=== PATIENT | male | born 1930 | race African-American/Black ===

== ENCOUNTER 2016-11-01 09:54 | Inpatient (IN) ==
[2016-11-01] MEDS ORDERED: SODIUM CHLORIDE 0.9% 1,000 ML IV STA (10:24)
[2016-11-01] MEDS ORDERED: PANTOPRAZOLE 40 MG VIAL IV STA (10:24)
[2016-11-01] MEDS ORDERED: ONDANSETRON 4 MG/2 ML VIAL IV STA (10:24)
[2016-11-01] MEDS ORDERED: METOCLOPRAMIDE 10 MG/2 ML VIAL IV STA (10:24)
--- NOTE | 2016-11-01 10:29 | Emergency Department Note ---
Arrival - Arrival Chief Complaint: GI Bleed/Rectal Stated Complaint: rectum bleeding ED Nursing Triage Note: Pt c/o bright red blood in stool with abd pain started this am. Mode of Arrival: Ambulatory Limitations: No Limitations Source: Patient Time Seen by Provider: 11/01/16 10:24 - History of Present Illness HPI Narrative: This 85-year-old black male presents with a history of 2 bowel movements earlier this morning in which the total Bowater appeared bright red. The patient described bowel movements as being nonpainful but loose. He likewise describe some mucinous material in the contents. He has a history of long- standing esophageal reflux and does complain of heartburn, belching, and indigestion and is no longer on his reflux medications. He does not describe any abdominal pain in association with this. He does have some low-grade nausea as well as incidental complaints of orthopnea. In this regard he denies chest pain, shortness of breath, or diaphoresis. He denies a history of diverticulosis, peptic ulcer disease, or colitis. Currently he appears in no acute medical distress. Onset (ago): hour(s) (patient presents 3 hours post onset of symptoms) Allergies/Adverse Reactions: Allergies Allergy/AdvReac Type Severity Reaction Status Date / Time levofloxacin [From Levaquin] Allergy Severe Swelling Verified 05/16/15 10:52 of Lip/Tongue/Throat pregabalin [From Lyrica] Allergy Severe ANAPHYLAXIS Verified 05/16/15 10:52 peanut Allergy Unknown Swelling Verified 05/16/15 10:52 of Lip/Tongue/Throat losartan [From Cozaar] AdvReac Unknown Unknown/Unable Verified 05/16/15 10:52 to obtain Home Medications: Home Medications Medication Instructions Recorded Confirmed Type Ferrous Sulfate [Ferrous Sulfate 325 mg PO BID 01/30/15 06/28/15 History Cap] Fluticasone 50 Mcg Nasal [place] 2 spray BOTH NARES BEDTIME 01/30/15 06/28/15 History [Flonase] Nifedipine [Nifedipine ER] 90 mg PO DAILY 01/30/15 06/28/15 History Pantoprazole Sodium 40 mg PO DAILY 01/30/15 06/28/15 History Sucralfate 1 gm PO BID 01/30/15 06/28/15 History Atorvastatin [Lipitor] 20 mg PO BEDTIME #30 tablet 05/22/15 06/28/15 Rx Clopidogrel [Plavix] 75 mg PO DAILY #30 tablet 05/22/15 06/28/15 Rx Magnesium Chloride [Slow Mag] 128 mg PO BID #60 tablet 05/22/15 06/28/15 Rx Carvedilol [Coreg] 12.5 mg PO BID 06/28/15 06/28/15 History Olopatadine 0.1% Oph Soln [Patanol 1 drop BOTH EYES BID 06/28/15 06/28/15 History 0.1% Oph Soln] Simethicone [Phazyme] 180 mg PO DAILY 06/28/15 06/28/15 History Aspirin EC Tab 81 mg PO MOWEFR #30 tablet 07/02/15 Rx traMADol TAB [Ultram] 50 mg PO Q6H #20 tablet 01/10/16 Rx Amoxicillin 500 mg PO QID W/MEALS & HS #40 01/11/16 Rx tablet Cetirizine HCl [ZyrTEC Cap] 10 mg PO DAILY #20 capsule 01/11/16 Rx Famciclovir [Famvir] 500 mg PO TID #30 tablet 01/11/16 Rx HYDROcodone/ACETAMIN 10-325 [Hana 1 tablet PO Q6H #20 tablet 01/11/16 Rx 10-325] HYDROcodone/ACETAMIN 10-325 [Hana 1 tablet PO Q6H #20 tablet 01/11/16 Rx 10-325] Review of System - Review of System 12 point system: reviewed and no additional remarkable complaints except as stated - Review of System Constitutional: Present: as per HPI Respiratory: Present: as per HPI Cardiovascular: Present: as per HPI Gastrointestinal: Present: as per HPI Medical,Surgical,& Family Hx - Medical History Cardio: History of: Cardiac Dysrhythmia (DR BRISENO), CAD, Hypertension, [place] Neurology: History of: Cerebrovascular Accident (AFFECTED SPEECH), TIA No history of: Seizures HEENT: History of: Eye Problem (ALLEERGIES) Respiratory: History of: Respiratory Problems (SOB ABNORMAL CXR, 1997 Lung cl.) Renal: History of: Renal Problems (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) Genitourinary: History of: Prostate Problems (CANCER DANIELLE RADIATION LUPRON), Genitourinary Cancer (prostate cancer) Gastrointestinal: History of: Hemorrhoids, GI Problems (ULCERS) Hematology: History of: Anemia - Surgical History Cardiac Surgeries: Sugical HX of: Cardiac Catheterization Patient Denies: Cardiac Surgery HEENT Surgeries: Surgical HX of: Eye Surgery (CATARACTS) Abdominal Surgeries: Surgical HX of: Colonoscopy, EGD - Family History Family History: Reports;: Family Cancer, Family Diabetes, Family Heart Disease, Family Hypertension, Family Stroke (2 BROTHERS) Denies;: Family Anesthesia Reaction, Family Psychiatric Problems - Social History Smoking Status: Former smoker Exam Physical Examination: GENERAL: Well developed, well nourished elderly black male in no acute distress. HEENT: Normocephalic. No trauma. Moist mucous membranes. EOMI. PERRLA. ENT clear NECK: Supple. No adenopathy. JVD to the angle of jaw at 45 CARDIAC: Regular. No murmurs. CHEST: Clear to auscultation. No respiratory distress. Heart rate 65, O2 sat 97% ABDOMEN: Soft. Midepigastric tenderness. Active bowel sounds. : Small excoriated macerated hemorrhoids with red blood perirectally EXTREMITIES: No trauma. Normal ROM. No pedal edema. SKIN: No diaphoresis. No rash. NEURO: Alert. Neuro intact No focal deficits. Vital Signs: Vital Signs Temperature 97.7 F 11/01/16 11:18 Pulse Rate 69 11/01/16 11:18 Respiratory Rate 18 11/01/16 11:18 Blood Pressure 166/77 11/01/16 11:18 O2 Sat by Pulse Oximetry 97 11/01/16 10:06 Course - Reevaluation(s) Reevaluation #1: Discussed with patient the need for hospitalization both with rectal bleeding and abnormal cardiac enzymes. - Consultations Consultation #1: Discussed with Dr. Massey who will admit for Dr. Dr. Berg for further evaluation and treatment Results - Labs CBC & BMP: 11/01/16 10:49 11/01/16 10:49 Labs: I reviewed the laboratory noted the low hematocrit, low potassium, and bump in troponins - Impressions EKG: Sinus rhythm with normal MS interval and QRS duration. Left ventricular hypertrophy noted with nonspecific ST changes without strain. No acute injury pattern noted. - Diagnostic Findings Procedure: Abdominal x-ray: image reviewed by me, report reviewed by me ( nonspecific colonic gas and feces), Chest x-ray: image reviewed by me, report reviewed by me (uncoiling of the aorta with left upper lobe scarring otherwise no acute disease) Disposition Clinical Impression: rectal bleed, abnormal cardiac enzymes Case discussed with: patient Disposition: Still a Patient Condition: Stable Time of Disposition: 13:07
[2016-11-01] MEDS ORDERED: PANTOPRAZOLE 40 MG VIAL IV ONE (10:51)
[2016-11-01] MEDS ORDERED: METOCLOPRAMIDE 10 MG/2 ML VIAL ONE (10:52)
[2016-11-01] MEDS ORDERED: ONDANSETRON 4 MG/2 ML VIAL ONE (10:52)
[2016-11-01 10:58] LABS: Basophils % 0.4 % (0.0-0.8); Eosinophils # 0.2 10*3/uL (0.0-0.87); Eosinophils % 3.3 % (0.00-10.9); Hematocrit 36.1 VOL% (42.0-52.0); Hemoglobin 11.5 GM/DL (14.0-18.0); Immature Granulocytes % 0.2 %; Immature Granulocytes Absolute 0.01 #; Lymphocytes # 1.6 10*3/uL (1.4-4.0); Lymphocytes % 33.8 % (21.2-54.2); Mean Corpuscular HGB Conc 31.9 GM/DL (32-36); Mean Corpuscular Hemoglobin 26 PG (27-34); Mean Platelet Volume 11.4 FL (9.6-12.0); Monocytes # 0.5 10*3/uL (0.11-0.8); Monocytes % 9.8 % (1.7-12.7); Neutrophils # 2.4 10*3/uL (1.4-7.4); Neutrophils % 52.5 % (38.7-73.9); Platelet Count 125 T/CUMM (130-400); Red Blood Count 4.35 MC/CUMM (3.8-5.5); Red Cell Distribution Width 16.4 % (9.3-17.3); White Blood Count 4.6 T/CUMM (4-12)
[2016-11-01 11:09] LABS: INR 1.1; PT Patient Result 11.7 SECS; Partial Thromboplastin Time 28.7 SECS (0-40)
--- NOTE | 2016-11-01 11:23 | EKG Report ---
Stationary ECG Study [facility] ER Test Date: 11/01/2016 11:19:43 AM Pat Name: ANJLEICA REYEZ Department: Room: Gender: M Cost Control Specialist: : 1930 Requested by: Jourdan Ireland Order Number: [id number] Reading MD: DINA ABEBE Intervals [place] Rate: 72 P: 29 OR: 176 QRS: -58 QRSD: 107 T: -53 QT: 395 QTc: 420 Interpretive Statements SINUS RHYTHM LEFT ANTERIOR FASCICULAR BLOCK MODERATE VOLTAGE CRITERIA FOR LVH ST DEVIATION AND MODERATE T-WAVE ABNORMALITY, CONSIDER ANTEROLATERAL ISCHEMIA Electronically Signed On 11-02-16 07:04:10 HANDBAG PARTS CUTTER by DINA ABEBE [email or web address]
[2016-11-01 11:37] LABS: Alanine Aminotransferase 17 U/L (16-61); Albumin 3.3 G/DL (3.4-5.0); Alkaline Phosphatase 90 U/L (45-117); Aspartate Amino Transferase 18 U/L (0-37); Bilirubin,Total < 0.39 MG/DL (0.2-1.0); Blood Urea Nitrogen 17 MG/DL (7-18); Calcium 8.9 MG/DL (8.5-10.1); Glucose 97 MG/DL (74-106)
[2016-11-01 11:38] LABS: Amylase 151 U/L (25-115); Potassium 3.4 MMOL/L (3.5-5.1); Sodium 143 MMOL/L (136-145)
[2016-11-01 11:39] LABS: Troponin I Only 0.126 NG/ML (0.00-0.045)
[2016-11-01] MEDS ORDERED: POTASSIUM BICARB EFFERVESCENT 25 MEQ TABLET PO ONE (12:58)
[2016-11-01] MEDS ORDERED: HYDROmorphone 2 MG/1 ML VIAL IV PRN (13:08)
[2016-11-01] MEDS ORDERED: ONDANSETRON 4 MG/2 ML VIAL IV PRN (13:08)
--- NOTE | 2016-11-01 13:25 | XRay Report ---
Referring Physician: Jourdan Michelle Exam: XR chest 1V portable Date: November 01, 2016 at 12:26 PM Reason: Shortness of breath Comparison: Chest 2 views July 13, 2015, CT chest August 13, 2015 Findings: There is cardiac silhouette is again mildly enlarged, and the thoracic aorta is tortuous with scattered calcified plaque. There are persistent mild opacities within the upper lung zones, left greater than right. This is similar to the previous CT and likely represents scarring/fibrosis. No pneumothorax or pleural effusion is identified. No acute osseous process is seen. Impression: 1. Mild cardiomegaly. 2. There is again scarring/fibrosis at the upper lung zones, mainly on the left. No acute pulmonary process is identified. PROCEDURE INTERPRETED AT [facility] DEPARTMENT OF RADIOLOGY Final Report Signed by: Dr. Rachele Alexis
--- NOTE | 2016-11-01 13:28 | XRay Report ---
Referring Physician: Jourdan Michelle Exam: XR KUB Date: November 01, 2016 at 12:28 PM Reason: Generalized abdominal pain Comparison: Abdomen 2 views June 28, 2015 Findings: There is scattered air within the colon and small bowel, which could reflect mild ileus. There is no evidence of high-grade bowel obstruction. The renal shadows are largely obscured. No free air is identified. There is degenerative change at the spine, but no acute osseous process is seen. Scattered arterial calcification is present. Impression: There is mild air within the colon and small bowel, which could reflect mild ileus. There is no evidence of high-grade bowel obstruction. PROCEDURE INTERPRETED AT [facility] DEPARTMENT OF RADIOLOGY Final Report Signed by: Dr. Rachele Alexis
[2016-11-01] MEDS ORDERED: METOCLOPRAMIDE 10 MG/2 ML VIAL IV SCH (13:30)
--- NOTE | 2016-11-01 14:32 | EKG Report ---
Stationary ECG Study [facility] Test Date: 11/01/2016 2:29:38 PM Pat Name: ANJELICA REYEZ Department: Room: 294 Gender: M Cone Winder: : 1930 Requested by: Jourdan Ireland Order Number: [id number] Reading MD: DINA ABEBE Intervals [place] Rate: 66 P: 36 ID: [id number] QRS: -48 QRSD: 105 T: -16 QT: 417 QTc: 431 Interpretive Statements SINUS RHYTHM INCOMPLETE RIGHT BUNDLE BRANCH BLOCK LEFT ANTERIOR FASCICULAR BLOCK VOLTAGE CRITERIA FOR LVH ST DEVIATION AND MODERATE T-WAVE ABNORMALITY, CONSIDER ANTEROLATERAL ISCHEMIA Electronically Signed On 11-02-16 07:08:16 IMAGING ADMINISTRATOR by DINA ABEBE [email or web address]
[2016-11-01] MEDS ORDERED: hydrALAZINE 20 MG/1 ML VIAL IV PRN (14:58)
[2016-11-01] MEDS: SODIUM CHLORIDE 0.9% 1,000 ML IV SCH (15:28)
[2016-11-01 16:22] LABS: Troponin I Only 0.149 NG/ML (0.00-0.045)
[2016-11-01] MEDS ORDERED: MEGESTROL 40 MG TABLET PO PRN (18:16)
--- NOTE | 2016-11-01 18:33 | Internal Med History&Physical ---
Assessment and Plan (1) Rectal bleed Status: Acute Assessment and plan: 85-year-old male admitted to acute care * Rectal bleeding. Patient has history of previous rectal bleeding. He is on Eliquis and Plavix. Will hold his anticoagulation. Will check his H&H and consult GI to see the patient. Probably diverticular bleeding. His hematocrit is fairly stable. He has history of previous GI bleeding * Coronary artery disease. Stable. He is asymptomatic but his troponin was slightly elevated. Will follow it in the morning. EKG shows nonspecific changes * History of CVA. Will hold his anticoagulation * History of anemia. Patient has been on ferrous sulfate. * Hyperlipidemia. Continue atorvastatin Current Visit: Yes (2) History of stroke Status: Acute Current Visit: Yes (3) Coronary artery disease Status: Acute Current Visit: Yes (4) Chronic anticoagulation Status: Acute Current Visit: No (5) Essential hypertension Status: Acute Current Visit: No History of Present Illness Chief complaint: Rectal bleeding History of present illness: Mr. Ash is a 85 year old male with history of coronary artery disease, hypertension, anemia, CVA and previous GI bleeding. He had a diarrhea-like stool this morning which had some old blood in it. And then he had another rectal bleeding which was bright red. He denies any abdominal pain. He denies any nausea vomiting or diarrhea other than the episode this morning. He denies any chest pain or shortness of breath. Patient is on Eliquis for a previous stroke and is also on Plavix. He had 2 stents [place] [address] garcia. He lives at home with his . He is a former smoker. He does not smoke or drink alcohol now. He is quite healthy for his age and is able to do his ADLs without any problems. In the emergency room his hematocrit was mildly low. Her troponin was checked by the ER physician and it was mildly elevated. Patient is asymptomatic. Home Medications Medication Instructions Recorded Confirmed Type Ferrous Sulfate [Ferrous Sulfate 325 mg PO BID 01/30/15 11/01/16 History Cap] Nifedipine [Nifedipine ER] 90 mg PO DAILY 01/30/15 11/01/16 History Clopidogrel [Plavix] 75 mg PO DAILY #30 tablet 05/22/15 11/01/16 Rx Magnesium Chloride [Slow Mag] 128 mg PO BID #60 tablet 05/22/15 11/01/16 Rx Apixaban [Eliquis] 2.5 mg PO BID 11/01/16 11/01/16 History Atorvastatin Calcium 40 mg PO BEDTIME 11/01/16 11/01/16 History Carvedilol 6.25 mg PO BID 11/01/16 11/01/16 History Cholecalciferol [Vitamin D3] 1,000 unit PO DAILY 11/01/16 11/01/16 History Folic Acid Tab 1 mg PO DAILY 11/01/16 11/01/16 History Hydrochlorothiazide [Microzide] 12.5 mg PO DAILY 11/01/16 11/01/16 History Megestrol Acetate 20 mg PO BID PRN 11/01/16 11/01/16 History Olopatadine HCl [Pataday 0.2% Oph 1 drop BOTH EYES DAILY 11/01/16 11/01/16 History Soln] Potassium Chloride 20 meq PO DAILY 11/01/16 11/01/16 History Allergies Allergy/AdvReac Type Severity Reaction Status Date / Time levofloxacin [From Levaquin] Allergy Severe Swelling Verified 05/16/15 10:52 of Lip/Tongue/Throat pregabalin [From Lyrica] Allergy Severe ANAPHYLAXIS Verified 05/16/15 10:52 peanut Allergy Unknown Swelling Verified 05/16/15 10:52 of Lip/Tongue/Throat losartan [From Cozaar] AdvReac Unknown Unknown/Unable Verified 05/16/15 10:52 to obtain Medical,Surgical,& Family Hx - Medical History Cardio: History of: Cardiac Dysrhythmia (DR BRISENO), CAD, Hypertension, [place] Neurology: History of: Cerebrovascular Accident (AFFECTED SPEECH), TIA No history of: Seizures HEENT: History of: Eye Problem (ALLEERGIES) Respiratory: History of: Respiratory Problems (SOB ABNORMAL CXR, 1997 Lung cl.) Renal: History of: Renal Problems (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) Genitourinary: History of: Prostate Problems (CANCER DANIELLE RADIATION LUPRON), Genitourinary Cancer (prostate cancer) Gastrointestinal: History of: Hemorrhoids, GI Problems (ULCERS) Hematology: History of: Anemia - Surgical History Cardiac Surgeries: Sugical HX of: Cardiac Catheterization Patient Denies: Cardiac Surgery HEENT Surgeries: Surgical HX of: Eye Surgery (CATARACTS) Abdominal Surgeries: Surgical HX of: Colonoscopy, EGD - Family History Family History: Reports;: Family Cancer, Family Diabetes, Family Heart Disease, Family Hypertension, Family Stroke (2 BROTHERS) Denies;: Family Anesthesia Reaction, Family Psychiatric Problems - Social History Smoking Status: Former smoker Frequency of Alcohol Use: None Marital Status: Lives With:: Spouse Functional capacity: independent ambulation 12 point system: reviewed and no additional remarkable complaints except as stated (Mentioned in HPI) Exam - Constitutional Exam: Examination: GENERAL: NAD. HEENT: PERRLA. EOMI. Mucous membranes are moist. NECK: Neck is supple. No JVD. No carotid bruit. No thyromegaly. CVS: Regular rate and rhythm. S1 and S2 are normal. Apical S4 RESPIRATORY: Lungs are clear. No rales or rhonchi. ABDOMEN: Soft and nontender. Bowel sounds are present. No hepatosplenomegaly. EXT: No edema. Peripheral pulses are present. YARD DEMURRAGE CLERK: Nonfocal SKIN: Warm and dry. MSK: No obvious deformity. Results - Labs CBC & BMP: 11/01/16 10:49 11/01/16 10:49 Lab Results: I have reviewed the past 24 hour labs
[2016-11-01 21:01] LABS: Hematocrit 33.8 VOL% (42.0-52.0); Hemoglobin 10.9 GM/DL (14.0-18.0)
[2016-11-01] MEDS: NITROGLYCERIN 2% OINT 1 INCH/GM PACK TOP SCH (21:41)
[2016-11-01] MEDS: ATORVASTATIN 80 MG TABLET PO SCH (21:41)
[2016-11-01] MEDS: FERROUS SULFATE 325 MG TABLET PO SCH (21:42)
[2016-11-01] MEDS: CARVEDILOL 6.25 MG TABLET PO SCH (21:42)
[2016-11-01] MEDS: MAGNESIUM CHLORIDE 64 MG TABLET PO SCH (21:43)
[2016-11-02] MEDS: NITROGLYCERIN 2% OINT 1 INCH/GM PACK TOP SCH ×4 (02:13→21:30)
[2016-11-02] MEDS: SODIUM CHLORIDE 0.9% 1,000 ML IV SCH ×2 (03:05→18:10)
[2016-11-02 06:09] LABS: Basophils % 0.3 % (0.0-0.8); Eosinophils # 0.2 10*3/uL (0.0-0.87); Eosinophils % 4.1 % (0.00-10.9); Hematocrit 32.6 VOL% (42.0-52.0); Hemoglobin 10.7 GM/DL (14.0-18.0); Immature Granulocytes % 0.3 %; Immature Granulocytes Absolute 0.01 #; Lymphocytes # 1.7 10*3/uL (1.4-4.0); Mean Corpuscular HGB Conc 32.8 GM/DL (32-36); Mean Corpuscular Hemoglobin 26 PG (27-34); Mean Corpuscular Volume 80.5 FL (87-102); Mean Platelet Volume 10.9 FL (9.6-12.0); Monocytes # 0.5 10*3/uL (0.11-0.8); Monocytes % 11.5 % (1.7-12.7); Neutrophils # 1.6 10*3/uL (1.4-7.4); Neutrophils % 40.8 % (38.7-73.9); Platelet Count 122 T/CUMM (130-400); Red Blood Count 4.05 MC/CUMM (3.8-5.5); Red Cell Distribution Width 16.3 % (9.3-17.3); White Blood Count 3.9 T/CUMM (4-12)
[2016-11-02 06:55] LABS: Calcium 8.4 MG/DL (8.5-10.1); Osmolality,Calculated 289.4 MOS/KG (273-304); Potassium 3.9 MMOL/L (3.5-5.1)
[2016-11-02 07:00] LABS: Troponin I Only 0.144 NG/ML (0.00-0.045)
--- NOTE | 2016-11-02 08:15 | EKG Report ---
Stationary ECG Study [facility] Test Date: 11/02/2016 8:14:06 AM Pat Name: ANJELICA REYEZ Department: Room: 294 Gender: M Trouble Clerk: : 1930 Requested by: Jourdan Ireland Order Number: [id number] Reading MD: DINA ABEBE Intervals [place] Rate: 53 P: 27 FL: 197 QRS: -63 QRSD: 103 T: 267 QT: 457 QTc: 440 Interpretive Statements SINUS BRADYCARDIA LEFT ANTERIOR FASCICULAR BLOCK ST DEVIATION AND MODERATE T-WAVE ABNORMALITY, CONSIDER ANTEROLATERAL ISCHEMIA ST DEVIATION AND MODERATE T-WAVE ABNORMALITY, CONSIDER INFERIOR ISCHEMIA Electronically Signed On 11-02-16 21:59:21 METAL EXTRUSION SUPERVISOR by DINA ABEBE [email or web address]
[2016-11-02] MEDS ORDERED: Olopatadine Hcl [Pataday 0.2% Oph Soln] BOTH EYES SCH (09:00)
[2016-11-02] MEDS ORDERED: PANTOPRAZOLE 40 MG VIAL IV SCH (09:00)
[2016-11-02] MEDS: FERROUS SULFATE 325 MG TABLET PO SCH ×2 (09:59→21:27)
[2016-11-02] MEDS: POTASSIUM CHLORIDE 20 MEQ TABLET PO SCH (09:59)
[2016-11-02] MEDS: hydroCHLOROthiazide 12.5 MG CAPSULE PO SCH (09:59)
[2016-11-02] MEDS: MAGNESIUM CHLORIDE 64 MG TABLET PO SCH ×2 (09:59→21:28)
[2016-11-02] MEDS: FOLIC ACID 1 MG TABLET PO SCH (10:00)
[2016-11-02] MEDS: CARVEDILOL 6.25 MG TABLET PO SCH ×2 (10:00→21:28)
[2016-11-02] MEDS: CHOLECALCIFEROL 1,000 UNIT TABLET PO SCH (10:00)
[2016-11-02] MEDS: PANTOPRAZOLE 40 MG TABLET PO SCH (10:00)
--- NOTE | 2016-11-02 10:10 | Internal Med Progress Note ---
Assessment and Plan (1) Rectal bleed Status: Acute Assessment and plan: 85-year-old male admitted to acute care * Rectal bleeding. Could be related to hemorrhoids. Will start him on a stool softener. GI to see the patient * Coronary artery disease. Stable. Troponin is mildly elevated in the wals[place] zone. Consult cardiology to evaluate especially about the need for anticoagulation in view of GI bleed * History of CVA. Will hold his anticoagulation * History of anemia. Patient has been on ferrous sulfate. * Hyperlipidemia. Continue atorvastatin Current Visit: Yes (2) History of stroke Status: Acute Current Visit: Yes (3) Coronary artery disease Status: Acute Current Visit: Yes (4) Chronic anticoagulation Status: Acute Current Visit: No (5) Essential hypertension Status: Acute Current Visit: No Internal Medicine - PN: Subj Interval history: He is feeling better. He is quite constipated. His stool has been hard. Exam (Progress Note) - Constitutional Vitals: Period Temp Pulse Resp BP Sys/Beck Pulse Ox Last 24 Hr 97.7 F-100.2 F 53-68 16-183 141-194/70-86 90-99 Exam: Examination: GENERAL: NAD. NECK: Neck is supple. CVS: Regular rate and rhythm. Apical S4 RESPIRATORY: Lungs are clear. ABDOMEN: Soft and nontender. EXT: No edema. Peripheral pulses are present. CERTIFIED MEDICAL TECHNICIAN: Nonfocal SKIN: Warm and dry. Results - Labs CBC & BMP: 11/02/16 05:59 11/02/16 05:59 Lab Results: I have reviewed the past 24 hour labs
[2016-11-02] MEDS: POLYETHYLENE GLYCOL POWDER 17 GM PACK PO SCH (14:36)
--- NOTE | 2016-11-02 14:43 | Gastrointestinal Consult Note ---
Assessment and Plan (1) Lower GI bleed Status: Acute Assessment and plan: 85-year-old male admitted with 2 episodes of painless lower GI bleeding. He appears stable today. Transfusion has not been required as yet. Differential includes diverticular bleed and internal hemorrhoids. He has had fairly recent colonoscopy over 3 years ago with good bowel prep then. At his age, would observe for now and not plan colonoscopy unless has recurrent bleeding. Continue observation with serial hemoglobins and blood product support if needed. Current Visit: No History of Present Illness Chief complaint: Rectal bleeding onset yesterday morning History of present illness: Mr. Ash is a 85 year old male with history of diverticulosis coli, benign colon polyp, mild radiation proctitis, and internal hemorrhoids noted at colonoscopy in 06/19. He states that he had been doing well of late but yesterday morning passed a small amount of bright red blood in stool and then around 10 minutes later had the urge to defecate again passed what he says was a large amount of bright red blood. His next bowel movement was this morning with some dark red blood noted. He denies abdominal pain or nausea. His weight has been stable of late. He denies taking nonsteroidal products. Hemodynamics have been normal since presentation. Home Medications Medication Instructions Recorded Confirmed Type Ferrous Sulfate [Ferrous Sulfate 325 mg PO BID 01/30/15 11/01/16 History Cap] Nifedipine [Nifedipine ER] 90 mg PO DAILY 01/30/15 11/01/16 History Clopidogrel [Plavix] 75 mg PO DAILY #30 tablet 05/22/15 11/01/16 Rx Magnesium Chloride [Slow Mag] 128 mg PO BID #60 tablet 05/22/15 11/01/16 Rx Apixaban [Eliquis] 2.5 mg PO BID 11/01/16 11/01/16 History Atorvastatin Calcium 40 mg PO BEDTIME 11/01/16 11/01/16 History Carvedilol 6.25 mg PO BID 11/01/16 11/01/16 History Cholecalciferol [Vitamin D3] 1,000 unit PO DAILY 11/01/16 11/01/16 History Folic Acid Tab 1 mg PO DAILY 11/01/16 11/01/16 History Hydrochlorothiazide [Microzide] 12.5 mg PO DAILY 11/01/16 11/01/16 History Megestrol Acetate 20 mg PO BID PRN 11/01/16 11/01/16 History Olopatadine HCl [[place] 0.2% Oph 1 drop BOTH EYES DAILY 11/01/16 11/01/16 History Soln] Potassium Chloride 20 meq PO DAILY 11/01/16 11/01/16 History Allergies Allergy/AdvReac Type Severity Reaction Status Date / Time levofloxacin [From Levaquin] Allergy Severe Swelling Verified 05/16/15 10:52 of Lip/Tongue/Throat pregabalin [From Lyrica] Allergy Severe ANAPHYLAXIS Verified 05/16/15 10:52 peanut Allergy Unknown Swelling Verified 05/16/15 10:52 of Lip/Tongue/Throat losartan [From Cozaar] AdvReac Unknown Unknown/Unable Verified 05/16/15 10:52 to obtain Medical,Surgical,& Family Hx - Medical History Cardio: History of: Cardiac Dysrhythmia (DR BRISENO), CAD, Hypertension, [place] Neurology: History of: Cerebrovascular Accident (AFFECTED SPEECH), TIA No history of: Seizures HEENT: History of: Eye Problem (ALLEERGIES) Respiratory: History of: Respiratory Problems (SOB ABNORMAL CXR, 1998 Lung cl.) Renal: History of: Renal Problems (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) Genitourinary: History of: Prostate Problems (CANCER DANIELLE RADIATION LUPRON), Genitourinary Cancer (prostate cancer) Gastrointestinal: History of: Hemorrhoids, GI Problems (ULCERS) Hematology: History of: Anemia - Surgical History Cardiac Surgeries: Sugical HX of: Cardiac Catheterization Patient Denies: Cardiac Surgery HEENT Surgeries: Surgical HX of: Eye Surgery (CATARACTS) Abdominal Surgeries: Surgical HX of: Colonoscopy, EGD - Family History Family History: Reports;: Family Cancer, Family Diabetes, Family Heart Disease, Family Hypertension, Family Stroke (2 BROTHERS) Denies;: Family Anesthesia Reaction, Family Psychiatric Problems - Social History Smoking Status: Former smoker Frequency of Alcohol Use: None Type of Drug Use: None - Constitutional Constitutional: Absent: chills, fatigue, fever(s), weakness, weight loss - EENT Nose, mouth and throat: Absent: dysphagia, epistaxis - Cardiovascular Cardiovascular: Absent: chest pain with activity, orthopnea, PND - Respiratory Respiratory: Absent: cough, dyspnea, hemoptysis - Gastrointestinal Gastrointestinal: Absent: abdominal pain, bloating, change in bowel habits, dysphagia, hematemesis, melena - Genitourinary Genitourinary: Absent: dysuria, flank pain, hematuria - Neurological Neurological: Absent: abnormal speech, focal weakness Exam - Constitutional Vitals: Period Temp Pulse Resp BP Sys/Beck Pulse Ox Last 24 Hr 97.7 F-100.2 F 53-68 16-183 141-194/70-88 90-99 General appearance: normal weight, no acute distress - Head Head exam: Present: normocephalic, atraumatic - Eye Eye exam: Present: EOMI. Absent: scleral icterus - Respiratory Respiratory exam: Present: clear to auscultation bilaterally. Absent: wheezes - Cardiovascular Cardiovascular exam: Present: regular rate and rhythm. Absent: gallop, rubs - GI/Abdominal GI/Abdominal exam: Present: normal bowel sounds, soft. Absent: distended, organomegaly, tenderness - Extremities Exam Extremities exam: Absent: calf tenderness, edema - Neurological Exam Neurological exam: Present: alert, oriented X3. Absent: motor sensory deficit - Psychiatric Psychiatric exam: Present: normal affect, normal mood - Skin Skin exam: Present: warm, dry Results - Labs CBC & BMP: 11/02/16 05:59 11/02/16 05:59 Lab Results: I have reviewed the past 24 hour labs
[2016-11-02] MEDS: ATORVASTATIN 80 MG TABLET PO SCH (21:28)
[2016-11-03] MEDS: NITROGLYCERIN 2% OINT 1 INCH/GM PACK TOP SCH ×4 (01:21→17:20)
[2016-11-03 05:17] LABS: Basophils % 0.2 % (0.0-0.8); Eosinophils # 0.2 10*3/uL (0.0-0.87); Eosinophils % 3.7 % (0.00-10.9); Hematocrit 34.6 VOL% (42.0-52.0); Hemoglobin 11.2 GM/DL (14.0-18.0); Immature Granulocytes % 0.2 %; Immature Granulocytes Absolute 0.01 #; Lymphocytes # 1.7 10*3/uL (1.4-4.0); Lymphocytes % 36.5 % (21.2-54.2); Mean Corpuscular HGB Conc 32.4 GM/DL (32-36); Mean Corpuscular Hemoglobin 26 PG (27-34); Mean Corpuscular Volume 80.3 FL (87-102); Mean Platelet Volume 11.3 FL (9.6-12.0); Monocytes # 0.5 10*3/uL (0.11-0.8); Monocytes % 10.1 % (1.7-12.7); Neutrophils # 2.2 10*3/uL (1.4-7.4); Neutrophils % 49.3 % (38.7-73.9); Platelet Count 121 T/CUMM (130-400); Red Blood Count 4.31 MC/CUMM (3.8-5.5); Red Cell Distribution Width 16.3 % (9.3-17.3); White Blood Count 4.6 T/CUMM (4-12)
[2016-11-03 05:52] LABS: Calcium 8.5 MG/DL (8.5-10.1); Osmolality,Calculated 287.6 MOS/KG (273-304); Potassium 3.8 MMOL/L (3.5-5.1)
--- NOTE | 2016-11-03 08:24 | Cardiology Consult Note ---
Assessment and Plan - Time spent with patient Time spent with patient: Greater than 30 minutes (1) Coronary artery disease Status: Chronic Assessment and plan: SEE PLAN OF CARE LISTED BELOW Current Visit: Yes (2) History of stroke Status: Chronic Assessment and plan: SEE PLAN OF CARE LISTED BELOW Current Visit: Yes (3) Rectal bleed Status: Acute Assessment and plan: SEE PLAN OF CARE LISTED BELOW Current Visit: Yes (4) Acute blood loss anemia Status: Chronic Assessment and plan: SEE PLAN OF CARE LISTED BELOW Current Visit: No (5) Atrial fibrillation Status: Chronic Assessment and plan: SEE PLAN OF CARE LISTED BELOW Current Visit: No Qualifiers: Atrial fibrillation type: paroxysmal Qualified Code(s): I48.0 - Paroxysmal atrial fibrillation (6) Chronic anticoagulation Status: Acute Current Visit: No (7) Elevated troponin Status: Acute Assessment and plan: SEE PLAN OF CARE LISTED BELOW Current Visit: No (8) Essential hypertension Status: Chronic Assessment and plan: SEE PLAN OF CARE LISTED BELOW Current Visit: No (9) High risk medication use Status: Chronic Assessment and plan: SEE PLAN OF CARE LISTED BELOW Current Visit: No History of Present Illness - Data of Consult Patient: known to practice within the last 3 years Consult date: 11/03/16 Requesting Physician: Louis Massey - Consult Narrative Reason for consult: anemia, using Plavix and Eliquis History of present illness: Mr. Ash is a 85 year old male routinely followed by Dr. Arthur. 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 Also has a history of paroxysmal atrial fibrillation, peptic ulcer disease, GI bleed, diverticulosis. Obstructive sleep apnea, prostate cancer. He takes low-dose Eliquis for stroke prevention. NSTEMI May 2015 requiring stenting of a critical mid LAD lesion and angioplasty of the right PDA lesion with drug-eluting stent. In June 2015 he experienced GI bleeding with severe anemia. After June 2015 he was off L Oquist for several weeks but then low-dose Eliquis (2.5 mg twice a day) was re- incorporated and he seemed to be tolerating without problems. He was taken off of aspirin as his Plavix was continued. He presented to the emergency department [facility]. November 01, 2016 with diarrhea like stools with "old blood" in it. Shortly thereafter, he had another rectal bleeding episode which was bright red. He had a bowel movement yesterday that had dark red blood. At this point, given his age, and gastroenterology is observing for nail and not planning on repeating colonoscopy unless he has recurrent bleeding. His hemoglobin and hematocrit seem to be stable at this point. He denies chest pain, heaviness or tightness. He denies shortness of breath, lightheadedness or dizziness. Troponins are flat at 0.126 - 0.149. Upon review of his hospitalizations as far back as April 2015, it is noted that his troponin is chronically elevated and are in fact the lowest today than they have ever been. ASSESSMENT/PLAN: 1. RECTAL BLEED - gastroenterology is working up in treating. 2. ANEMIA - seems to be stable at this point. It is safe to stop his Plavix as his drug-eluting stent was implanted over 18 months ago. 3. KNOWN CAD - no complaints of angina. Troponin is elevated but appears to be chronically elevated. Given his active GI bleed, no invasive work-up recommended. 4. ATRIAL FIBRILLATION - at this time, he is in normal sinus rhythm. His L Oquist has been held since admission 5. HYPERTENSION - adequately controlled on beta blockade and calcium channel chivo 6. DYSLIPIDEMIA - continue lipid-lowering agent 7. HISTORY OF CVA - 2 prior CVAs. Uncertain about timing of diagnosis of his atrial fibrillation. In his advanced age, he had been taking Eliquis 2.5 mg twice a rather than 5 mg twice a day. 8. CHRONIC ANTICOAGULATION - currently on hold. CC: Carie Berg, DO - Home Medications and Allergies Home Medications: Home Medications Medication Instructions Recorded Confirmed Type Ferrous Sulfate [Ferrous Sulfate 325 mg PO BID 01/30/15 11/01/16 History Cap] Nifedipine [Nifedipine ER] 90 mg PO DAILY 01/30/15 11/02/16 History Clopidogrel [Plavix] 75 mg PO DAILY #30 tablet 05/22/15 11/01/16 Rx Magnesium Chloride [Slow Mag] 128 mg PO BID #60 tablet 05/22/15 11/01/16 Rx Apixaban [Eliquis] 2.5 mg PO BID 11/01/16 11/01/16 History Atorvastatin Calcium 40 mg PO BEDTIME 11/01/16 11/01/16 History Carvedilol 6.25 mg PO BID 11/01/16 11/01/16 History Cholecalciferol [Vitamin D3] 1,000 unit PO DAILY 11/01/16 11/01/16 History Folic Acid Tab 1 mg PO DAILY 11/01/16 11/01/16 History Hydrochlorothiazide [Microzide] 12.5 mg PO DAILY 11/01/16 11/01/16 History Megestrol Acetate 20 mg PO BID PRN 11/01/16 11/01/16 History Olopatadine HCl [Pataday 0.2% Oph 1 drop BOTH EYES DAILY 11/01/16 11/01/16 History Soln] Potassium Chloride 20 meq PO DAILY 11/01/16 11/01/16 History Allergies/Adverse Reactions: Allergies Allergy/AdvReac Type Severity Reaction Status Date / Time levofloxacin [From Levaquin] Allergy Severe Swelling Verified 05/16/15 10:52 of Lip/Tongue/Throat pregabalin [From Lyrica] Allergy Severe ANAPHYLAXIS Verified 05/16/15 10:52 peanut Allergy Unknown Swelling Verified 05/16/15 10:52 of Lip/Tongue/Throat losartan [From Cozaar] AdvReac Unknown Unknown/Unable Verified 05/16/15 10:52 to obtain Review of systems: REVIEW OF SYSTEMS: - Constitutional Constitutional: Present: Fatigue. Absent: syncope, anorexia, - EENT Eyes: Absent: blurry vision, loss of vision, diplopia Ears: Absent: decreased hearing, ear pain, ear discharge - Cardiovascular Cardiovascular: Denies chest pain with exertion, dyspnea on exertion, edema, palpitations. Absent: chest pain with deep breath, claudication, - Respiratory Respiratory: Denies RUBIN, cough. Absent: wheezing, hemoptysis, change in phlegm color - Gastrointestinal Gastrointestinal: Present: constipation, melena. Absent: abdominal pain, hematemesis, change in bowel habits, nausea - Genitourinary Genitourinary: Absent: difficulty urinating, dysuria, urinary hesitancy, flank pain - Musculoskeletal Musculoskeletal: Present: back pain Absent: joint swelling, muscle cramps, muscle weakness - Neurological Neurological: Present: normal gait without frequent falls. Absent: dizziness, hemiparesis - Psychiatric Psychiatric: Absent: anxiety, depression, difficulty concentrating - Endocrine Endocrine: Present: fatigue. Absent: cold intolerance, heat intolerance, polyuria, polyphagia, polydipsia - Hematologic/Lymphatic Hematologic/Lymphatic: Present: easy bruising. Absent: easy bleeding, easy bruisability -Integumentary Integumentary: Absent: lesions, rashes, skin breakdown Medical,Surgical,& Family Hx - Medical History Cardio: History of: Cardiac Dysrhythmia (DR BRISENO), CAD, Hypertension, [place] Neurology: History of: Cerebrovascular Accident (AFFECTED SPEECH), TIA No history of: Seizures HEENT: History of: Eye Problem (ALLEERGIES) Respiratory: History of: Respiratory Problems (SOB ABNORMAL CXR, 1997 Lung cl.) Renal: History of: Renal Problems (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) Genitourinary: History of: Prostate Problems (CANCER DANIELLE RADIATION LUPRON), Genitourinary Cancer (prostate cancer) Gastrointestinal: History of: Hemorrhoids, GI Problems (ULCERS) Hematology: History of: Anemia - Surgical History Cardiac Surgeries: Sugical HX of: Cardiac Catheterization Patient Denies: Cardiac Surgery HEENT Surgeries: Surgical HX of: Eye Surgery (CATARACTS) Abdominal Surgeries: Surgical HX of: Colonoscopy, EGD - Family History Family History: Reports;: Family Cancer, Family Diabetes, Family Heart Disease, Family Hypertension, Family Stroke (2 BROTHERS) Denies;: Family Anesthesia Reaction, Family Psychiatric Problems - Social History Smoking Status: Former smoker Frequency of Alcohol Use: None Type of Drug Use: None Physical Examination Vital Signs Temp Pulse Resp BP Pulse Ox 97.7 F 69 18 166/77 97 11/01/16 10:06 11/01/16 10:06 11/01/16 10:06 11/01/16 10:06 11/01/16 10:06 General: Appears well with no apparent distress. Pleasant and cooperative. Appears comfortable. HEENT: PERRL, normocephalic, atraumatic. Mucous membranes moist. No jaundice noted. Conjunctiva moist and clear, sclerae anicteric Neck: No JVD/HJR, no thyromegaly or lymphadenopathy noted. No carotid bruit appreciated Cardiac: Regular rate and rhythm. No murmur rub or gallop. Lungs: Clear to auscultation without accessory muscle use to assist the respiratory pattern. Not requiring oxygen Abdomen: Soft, bowel sounds normoactive. Nontender and nondistended. No abdominal bruit or thrill noted. No masses noted. Musculoskeletal: No fluid collection. Decreased range of motion is noted. Extremities: No clubbing, cyanosis noted. No edema noted. Upper extremity pulses 2+. Lower extremity pulses 2+. Capillary refill less than 3 seconds. Skin: No unusual lesions or rashes. No skin breakdown appreciated. Neuro: Awake, alert and oriented 3. Moves all extremities well without hemiparesis or paralysis. No essential tremor is appreciated. Result/EKG - Labs CBC & BMP: 11/03/16 03:50 11/03/16 03:50 Lab Results: I have reviewed the past 24 hour labs Labs: Laboratory Results - last 24 hr 11/03/16 11/03/16 03:50 03:50 WBC 4.6 RBC 4.31 Hgb 11.2 L Hct 34.6 L MCV 80.3 L MCH 26 L MCHC 32.4 RDW 16.3 Plt Count 121 L MPV 11.3 Neut % (Auto) 49.3 Lymph % (Auto) 36.5 [place] % (Auto) 10.1 Eos % (Auto) 3.7 Baso % (Auto) 0.2 Neut # (Auto) 2.2 Lymph # (Auto) 1.7 [place] # (Auto) 0.5 Eos # (Auto) 0.2 Baso # (Auto) 0.0 Immature Gran % 0.2 Nucleated RBC % 0.0 Immature Gran # 0.01 Nucleated RBCs # 0.00 Sodium 146 H Potassium 3.8 Chloride 109 H Carbon Dioxide 25 Anion Gap 15.8 H BUN 9 Creatinine 1.00 GFR Calculation 89 BUN/Creatinine Ratio 9.00 Glucose 86 Calculated Osmolality 287.6 Calcium 8.5 - Diagnostic Findings Procedure: Chest x-ray: report reviewed by ca - EKG EKG results: interpreted by ca EKG shows: sinus rhythm
[2016-11-03] MEDS: SODIUM CHLORIDE 0.9% 1,000 ML IV SCH ×2 (08:36→21:51)
[2016-11-03] MEDS: CHOLECALCIFEROL 1,000 UNIT TABLET PO SCH (08:55)
[2016-11-03] MEDS: FOLIC ACID 1 MG TABLET PO SCH (08:55)
[2016-11-03] MEDS: MAGNESIUM CHLORIDE 64 MG TABLET PO SCH ×2 (08:56→21:46)
[2016-11-03] MEDS: PANTOPRAZOLE 40 MG TABLET PO SCH (08:56)
[2016-11-03] MEDS: hydroCHLOROthiazide 12.5 MG CAPSULE PO SCH (08:56)
[2016-11-03] MEDS: POLYETHYLENE GLYCOL POWDER 17 GM PACK PO SCH (08:56)
[2016-11-03] MEDS: POTASSIUM CHLORIDE 20 MEQ TABLET PO SCH (08:56)
[2016-11-03] MEDS: FERROUS SULFATE 325 MG TABLET PO SCH ×2 (08:56→21:46)
[2016-11-03] MEDS: CARVEDILOL 6.25 MG TABLET PO SCH ×2 (08:56→21:46)
--- NOTE | 2016-11-03 09:54 | Gastrointestinal Progress Note ---
Assessment and Plan (1) Lower GI bleed Status: Acute Assessment and plan: 11/03-NO further bleeding at present. Hgb stable at 11. Will advance diet and continue to monitor. Plan and addendum to follow by Dr Douglass. Current Visit: No Gastroenterology - PN: Subj Interval history: CC: Rectal bleeding Pt is awake and alert. States he is feeling well at this time. He is tolerating clear liquids at this time. No abd pain, nausea or vomiting. He has had no further bleeding at present time. Hgb is stable at 11. Abdomen is soft, nontender. Will advance diet and see how he tolerates this today. He states he did have a bowel movement that was normal for him on last night. ROS: Denies SOB or chest pain Exam (Progress Note) - Constitutional Vitals: Period Temp Pulse Resp BP Sys/Beck Pulse Ox Last 24 Hr 98 F-98.7 F 58-63 16-18 140-192/73-88 93-96 General appearance: normal weight, no acute distress - Head Head exam: Present: normal inspection, normocephalic - Eye Eye exam: Present: other (lids and conjunctiva unremarkable). Absent: scleral icterus - ENT ENT exam: Present: normal exam, normal oropharynx - Neck Neck exam: Present: normal inspection - Respiratory Respiratory exam: Present: clear to auscultation bilaterally. Absent: rales, rhonchi, wheezes - Cardiovascular Cardiovascular exam: Present: regular rate and rhythm. Absent: diastolic murmur , JVD, systolic murmur - GI/Abdominal GI/Abdominal exam: Present: normal bowel sounds, soft. Absent: ascites, distended, mass, organomegaly, tenderness - Extremities Exam Extremities exam: Present: normal inspection, full ROM - Back Exam Back exam: Present: normal inspection - Neurological Exam Neurological exam: Present: alert, oriented X3 - Psychiatric Psychiatric exam: Present: normal affect, normal mood - Skin Skin exam: Present: normal color, warm, dry Results - Labs CBC & BMP: 11/03/16 03:50 11/03/16 03:50 Lab Results: I have reviewed the past 24 hour labs
--- NOTE | 2016-11-03 19:45 | Internal Med Progress Note ---
Assessment and Plan (1) Rectal bleed Status: Acute Current Visit: Yes (2) History of stroke Status: Chronic Current Visit: Yes (3) Chronic anticoagulation Status: Acute Current Visit: No (4) Essential hypertension Status: Acute Current Visit: No Internal Medicine - PN: Subj Interval history: This is an 85 year old male with history of CAD/[place], HTN, acid reflux, stroke with mild speech aphasia, history of prostate cancer, who presented to ER with acute rectal bleed. He has had a similar bleed before two years ago. The bleed has resolved, and if no bloody stool noted tonight, he can be discharged before lunch tomorrow. He has been on chronic anticoagulation. History of paroxysmal atrial fibrillation, CAD and stroke. Exam (Progress Note) - Constitutional Vitals: Period Temp Pulse Resp BP Sys/Beck Pulse Ox Last 24 Hr 96.7 F-98.7 F 58-63 17-18 114-166/56-90 94-98 General appearance: no acute distress - Respiratory Respiratory exam: Present: clear to auscultation bilaterally - Cardiovascular Cardiovascular exam: Present: regular rate and rhythm - GI/Abdominal GI/Abdominal exam: Present: soft. Absent: tenderness - Extremities Exam Extremities exam: Absent: edema - Neurological Exam Neurological exam: Present: alert, oriented X3 - Psychiatric Psychiatric exam: Present: normal mood - Skin Skin exam: Present: warm, dry Results - Labs CBC & BMP: 11/04/16 03:41 11/04/16 03:41 Specialty Discharge - Follow Up or Referrals Follow up with: Jacques Douglass MD [Physician] - 1 Month Carie Berg DO [Primary Care Provider] - 2 Weeks
[2016-11-03] MEDS: ATORVASTATIN 80 MG TABLET PO SCH (21:46)
[2016-11-04] MEDS: NITROGLYCERIN 2% OINT 1 INCH/GM PACK TOP SCH ×2 (01:46→06:31)
--- NOTE | 2016-11-04 02:23 | Discharge Summary ---
Hospital Course - Hospital Course Hospital Course: This is an 85 year old male with history of CAD/[place], HTN, acid reflux, stroke with mild speech aphasia, who presented to ER with acute rectal bleed. He has had a similar bleed before two years ago. The bleed has resolved, and if no bloody stool noted tonight, he can be discharged before lunch. Diagnosis - Discharge Diagnosis (1) Rectal bleed Status: Acute (2) Coronary artery disease Status: Chronic (3) History of stroke Status: Chronic Discharge Plan - Discharge Data Disposition: Disch To Home/Self Care Condition at Discharge: Stable (.) Discharge Diet: low fat, low cholesterol, other (soft, bland solids and advance slowly) Activity: increase activity as tolerated - Discharge Medications New Pantoprazole Tab [Protonix Tab] 40 mg PO DAILY tablet Aspirin EC Tab 325 mg PO DAILY #30 tablet Polyethylene Glycol Powder [Miralax] 17 gm PO DAILY Continue Nifedipine [Nifedipine ER] 90 mg PO DAILY Ferrous Sulfate [Ferrous Sulfate Cap] 325 mg PO BID Magnesium Chloride [Slow Mag] 128 mg PO BID #60 tablet Atorvastatin Calcium 40 mg PO BEDTIME Carvedilol 6.25 mg PO BID Olopatadine HCl [Pataday 0.2% Oph Soln] 1 drop BOTH EYES DAILY Hydrochlorothiazide [Microzide] 12.5 mg PO DAILY Potassium Chloride 20 meq PO DAILY Megestrol Acetate 20 mg PO BID PRN PRN Reason: HOT FLASHES Cholecalciferol [Vitamin D3] 1,000 unit PO DAILY Folic Acid Tab 1 mg PO DAILY Discontinued Clopidogrel [Plavix] 75 mg PO DAILY #30 tablet Apixaban [Eliquis] 2.5 mg PO BID - Follow Up or Referral Follow Up: Carie Berg DO [Primary Care Provider] - Jacques Douglass MD [Physician] - - Forms/Instructions Additional Discharge Instructions: Follow up with Dr. Cathleen Berg in clinic within the next two weeks. Follow up with Dr. Douglass in clinic within the next month. Exam - Constitutional Vitals: Period Temp Pulse Resp BP Sys/Beck Pulse Ox Last 24 Hr 96.4 F-98.6 F 58-66 16-20 114-153/56-90 94-100 General appearance: no acute distress - Head Head exam: Present: normocephalic - Eye Eye exam: Present: EOMI - Respiratory Respiratory exam: Present: clear to auscultation bilaterally - Cardiovascular Cardiovascular exam: Present: regular rate and rhythm (he is) - GI/Abdominal GI/Abdominal exam: Present: soft. Absent: tenderness - Extremities Exam Extremities exam: Absent: edema - Neurological Exam Neurological exam: Present: alert, oriented X3 - Psychiatric Psychiatric exam: Present: normal mood (he is) - Skin Skin exam: Present: warm, dry Discharge Results Procedures and tests throughout hospitalization: Pending Orders 11/02/16 Occult Blood, Stool Routine Labs on day of discharge: Labs from last 24 hours 11/03/16 11/03/16 03:50 03:50 WBC 4.6 RBC 4.31 Hgb 11.2 L Hct 34.6 L MCV 80.3 L MCH 26 L MCHC 32.4 RDW 16.3 Plt Count 121 L MPV 11.3 Neut % (Auto) 49.3 Lymph % (Auto) 36.5 [place] % (Auto) 10.1 Eos % (Auto) 3.7 Baso % (Auto) 0.2 Neut # (Auto) 2.2 Lymph # (Auto) 1.7 [place] # (Auto) 0.5 Eos # (Auto) 0.2 Baso # (Auto) 0.0 Immature Gran % 0.2 Nucleated RBC % 0.0 Immature Gran # 0.01 Nucleated RBCs # 0.00 Sodium 146 H Potassium 3.8 Chloride 109 H Carbon Dioxide 25 Anion Gap 15.8 H BUN 9 Creatinine 1.00 GFR Calculation 89 BUN/Creatinine Ratio 9.00 Glucose 86 Calculated Osmolality 287.6 Calcium 8.5 DS: Provider Date of admission: 11/01/16 13:07 Primary care physician: Carie Berg DO Attending physician on admission: Carie Berg DO Consults: 11/01/16 13:08 Consult to Physician [CONS] Routine Comment: Consulting Provider: Consult to Specialist Group: Gastroenterology When should Consulting Provider be notified: Now 11/02/16 10:10 Consult to Physician [CONS] Routine Comment: Trivial elevation of troponin, history of CAD Consulting Provider: Cardiology - [facility] Consult to Specialist Group: Cardiology Person Notified: MARYLIN Date Notified: 11/03/16 Time Notified: 08:25 Discharging clinician: Carie Berg DO Expected date of discharge: 11/04/16
[2016-11-04 04:58] LABS: Basophils % 0.2 % (0.0-0.8); Eosinophils # 0.2 10*3/uL (0.0-0.87); Eosinophils % 4.2 % (0.00-10.9); Hematocrit 33.8 VOL% (42.0-52.0); Immature Granulocytes % 0.2 %; Immature Granulocytes Absolute 0.01 #; Lymphocytes # 1.6 10*3/uL (1.4-4.0); Lymphocytes % 35.4 % (21.2-54.2); Mean Corpuscular HGB Conc 32.5 GM/DL (32-36); Mean Corpuscular Hemoglobin 26 PG (27-34); Mean Corpuscular Volume 80.5 FL (87-102); Mean Platelet Volume 11.9 FL (9.6-12.0); Monocytes # 0.5 10*3/uL (0.11-0.8); Monocytes % 9.8 % (1.7-12.7); Neutrophils # 2.3 10*3/uL (1.4-7.4); Neutrophils % 50.2 % (38.7-73.9); Platelet Count 120 T/CUMM (130-400); Red Cell Distribution Width 16.2 % (9.3-17.3); White Blood Count 4.6 T/CUMM (4-12)
[2016-11-04 05:45] LABS: Calcium 8.2 MG/DL (8.5-10.1); Osmolality,Calculated 291.4 MOS/KG (273-304); Potassium 3.9 MMOL/L (3.5-5.1)
[2016-11-04 08:05] VITALS: BP 161/89
[2016-11-04] MEDS: POLYETHYLENE GLYCOL POWDER 17 GM PACK PO SCH (09:50)
[2016-11-04] MEDS: CARVEDILOL 6.25 MG TABLET PO SCH (09:52)
[2016-11-04] MEDS: POTASSIUM CHLORIDE 20 MEQ TABLET PO SCH (09:52)
[2016-11-04] MEDS: hydroCHLOROthiazide 12.5 MG CAPSULE PO SCH (09:53)
[2016-11-04] MEDS: MAGNESIUM CHLORIDE 64 MG TABLET PO SCH (09:54)
[2016-11-04] MEDS: FERROUS SULFATE 325 MG TABLET PO SCH (09:54)
[2016-11-04] MEDS: PANTOPRAZOLE 40 MG TABLET PO SCH (09:55)
[2016-11-04] MEDS: CHOLECALCIFEROL 1,000 UNIT TABLET PO SCH (09:55)
[2016-11-04] MEDS: FOLIC ACID 1 MG TABLET PO SCH (09:55)
== END 2016-11-04 10:55 | disposition home or self-care (01) | DRG 379 ==
LOC: N.ED 09:54 → N.EDINP 13:07 → N.TELEN 13:56
PROVIDERS: ADMIT Internal Medicine; ATTEND Internal Medicine

== ENCOUNTER 2017-07-06 23:27 | Inpatient (IN) ==
[2017-07-07] MEDS ORDERED: PANTOPRAZOLE 40 MG VIAL IV STA (00:11)
[2017-07-07] MEDS ORDERED: PANTOPRAZOLE 40 MG VIAL IV ONE (00:32)
[2017-07-07 00:35] LABS: Basophils % 0.4 % (0.0-0.8); Eosinophils # 0.2 10*3/uL (0.0-0.87); Eosinophils % 3.2 % (0.00-10.9); Hemoglobin 11.3 GM/DL (14.0-18.0); Immature Granulocytes % 0.2 %; Immature Granulocytes Absolute 0.01 #; Lymphocytes % 42.5 % (21.2-54.2); Mean Corpuscular HGB Conc 34.2 GM/DL (32-36); Mean Corpuscular Hemoglobin 27 PG (27-34); Mean Corpuscular Volume 80.1 FL (87-102); Mean Platelet Volume 10.9 FL (9.6-12.0); Monocytes # 0.5 10*3/uL (0.11-0.8); Monocytes % 10.3 % (1.7-12.7); Neutrophils % 43.4 % (38.7-73.9); Platelet Count 130 T/CUMM (130-400); Red Blood Count 4.12 MC/CUMM (3.8-5.5); Red Cell Distribution Width 15.5 % (9.3-17.3); White Blood Count 4.6 T/CUMM (4-12)
[2017-07-07 00:44] LABS: PT Patient Result 10.7 SECS; Partial Thromboplastin Time 26.6 SECS (0-40)
[2017-07-07 01:11] LABS: Albumin 3.7 G/DL (3.4-5.0); Bilirubin,Total 0.4 MG/DL (0.2-1.0); Calcium 8.7 MG/DL (8.5-10.1); Osmolality,Calculated 279.5 MOS/KG (273-304); Potassium 3.2 MMOL/L (3.5-5.1); Total Protein 7.2 G/DL (6.4-8.3)
[2017-07-07] MEDS ORDERED: POTASSIUM CHLORIDE 20 MEQ TABLET PO STA (01:31)
[2017-07-07] MEDS ORDERED: ACETAMINOPHEN 325 MG TABLET PO PRN (01:35)
[2017-07-07] MEDS ORDERED: ONDANSETRON 4 MG/2 ML VIAL IV PRN (01:35)
[2017-07-07] MEDS ORDERED: POTASSIUM CHLORIDE 20 MEQ TABLET PO ONE (01:43)
[2017-07-07 05:54] LABS: Basophils % 0.5 % (0.0-0.8); Eosinophils # 0.2 10*3/uL (0.0-0.87); Eosinophils % 4.1 % (0.00-10.9); Hematocrit 33.2 VOL% (42.0-52.0); Hemoglobin 11.1 GM/DL (14.0-18.0); Immature Granulocytes % 0.2 %; Immature Granulocytes Absolute 0.01 #; Lymphocytes # 1.8 10*3/uL (1.4-4.0); Lymphocytes % 44.4 % (21.2-54.2); Mean Corpuscular HGB Conc 33.4 GM/DL (32-36); Mean Corpuscular Hemoglobin 27 PG (27-34); Mean Corpuscular Volume 80.6 FL (87-102); Mean Platelet Volume 10.9 FL (9.6-12.0); Monocytes # 0.5 10*3/uL (0.11-0.8); Monocytes % 11.8 % (1.7-12.7); Neutrophils # 1.6 10*3/uL (1.4-7.4); Platelet Count 130 T/CUMM (130-400); Red Blood Count 4.12 MC/CUMM (3.8-5.5); Red Cell Distribution Width 15.4 % (9.3-17.3); White Blood Count 4.1 T/CUMM (4-12)
[2017-07-07 06:25] LABS: Albumin 3.5 G/DL (3.4-5.0); Bilirubin,Total 0.6 MG/DL (0.2-1.0); Calcium 9.2 MG/DL (8.5-10.1); Osmolality,Calculated 283.1 MOS/KG (273-304); Potassium 3.7 MMOL/L (3.5-5.1); Total Protein 6.7 G/DL (6.4-8.3)
[2017-07-07] MEDS: PANTOPRAZOLE 40 MG TABLET PO SCH (09:34)
[2017-07-07] MEDS: DOCUSATE SODIUM 100 MG CAPSULE PO SCH ×2 (09:34→20:52)
[2017-07-07] MEDS: SIMETHICONE CHEW 80 MG TABLET PO SCH (16:34)
[2017-07-07] MEDS ORDERED: MEGESTROL 40 MG TABLET PO PRN (18:53)
[2017-07-07] MEDS: ATORVASTATIN 40 MG TABLET PO SCH (20:52)
[2017-07-07] MEDS: hydrALAZINE 25 MG TABLET PO SCH (20:52)
[2017-07-07] MEDS: MAGNESIUM CHLORIDE 64 MG TABLET PO SCH (20:52)
[2017-07-08 05:33] LABS: Basophils % 0.3 % (0.0-0.8); Eosinophils # 0.1 10*3/uL (0.0-0.87); Eosinophils % 3.8 % (0.00-10.9); Hematocrit 30.2 VOL% (42.0-52.0); Immature Granulocytes % 0.3 %; Immature Granulocytes Absolute 0.01 #; Lymphocytes # 1.5 10*3/uL (1.4-4.0); Lymphocytes % 43.1 % (21.2-54.2); Mean Corpuscular HGB Conc 33.1 GM/DL (32-36); Mean Corpuscular Hemoglobin 27 PG (27-34); Mean Corpuscular Volume 81.4 FL (87-102); Mean Platelet Volume 11.2 FL (9.6-12.0); Monocytes # 0.5 10*3/uL (0.11-0.8); Monocytes % 14.2 % (1.7-12.7); Neutrophils # 1.3 10*3/uL (1.4-7.4); Neutrophils % 38.3 % (38.7-73.9); Platelet Count 117 T/CUMM (130-400); Red Blood Count 3.71 MC/CUMM (3.8-5.5); Red Cell Distribution Width 15.6 % (9.3-17.3); White Blood Count 3.4 T/CUMM (4-12)
[2017-07-08 06:00] LABS: Eosinophils 1 % (0-10); Hypochromasia 1+; Lymphocytes 45 % (20-55); Microcytosis 1+; Segmented Neutrophils 46 % (50-85); Total Cells Counted 100
[2017-07-08 06:01] LABS: Atypical Lymphocytes Few; Ovalocytes Slight; Platelet Estimate Adequate
[2017-07-08 06:03] LABS: Bilirubin,Total 0.7 MG/DL (0.2-1.0); Calcium 8.8 MG/DL (8.5-10.1); Osmolality,Calculated 280.3 MOS/KG (273-304); Potassium 3.5 MMOL/L (3.5-5.1); Total Protein 6.1 G/DL (6.4-8.3)
[2017-07-08] MEDS: hydroCHLOROthiazide 12.5 MG CAPSULE PO SCH (08:55)
[2017-07-08] MEDS: FOLIC ACID 1 MG TABLET PO SCH (08:56)
[2017-07-08] MEDS: SIMETHICONE CHEW 80 MG TABLET PO SCH ×3 (08:56→17:06)
[2017-07-08] MEDS: BICALUTAMIDE 50 MG TABLET PO SCH (08:56)
[2017-07-08] MEDS: PANTOPRAZOLE 40 MG TABLET PO SCH ×2 (08:56→08:58)
[2017-07-08] MEDS: MAGNESIUM CHLORIDE 64 MG TABLET PO SCH ×2 (08:56→22:44)
[2017-07-08] MEDS: DOCUSATE SODIUM 100 MG CAPSULE PO SCH ×2 (08:57→22:44)
[2017-07-08] MEDS: OLOPATADINE 0.1% OPH SOLN 5 ML BOTTLE BOTH EYES SCH (08:57)
[2017-07-08] MEDS: POTASSIUM CHLORIDE 20 MEQ TABLET PO SCH (08:57)
[2017-07-08] MEDS: hydrALAZINE 25 MG TABLET PO SCH (08:57)
[2017-07-08] MEDS ORDERED: BISACODYL 5 MG TABLET PO ONE (12:00)
[2017-07-08] MEDS ORDERED: POLYETHYLENE GLYCOL POWDER 255 GM BOTTLE PO ONE (13:00)
[2017-07-08] MEDS: ATORVASTATIN 40 MG TABLET PO SCH (22:44)
[2017-07-09] MEDS ORDERED: MAGNESIUM CITRATE 300 ML BOTTLE PO ONE (06:00)
[2017-07-09 06:37] LABS: Basophils % 0.2 % (0.0-0.8); Eosinophils # 0.2 10*3/uL (0.0-0.87); Hemoglobin 10.2 GM/DL (14.0-18.0); Immature Granulocytes % 0.2 %; Immature Granulocytes Absolute 0.01 #; Lymphocytes # 1.6 10*3/uL (1.4-4.0); Lymphocytes % 38.6 % (21.2-54.2); Mean Corpuscular HGB Conc 32.9 GM/DL (32-36); Mean Corpuscular Hemoglobin 27 PG (27-34); Mean Corpuscular Volume 80.9 FL (87-102); Monocytes # 0.6 10*3/uL (0.11-0.8); Monocytes % 14.6 % (1.7-12.7); Neutrophils # 1.8 10*3/uL (1.4-7.4); Neutrophils % 42.4 % (38.7-73.9); Platelet Count 125 T/CUMM (130-400); Red Blood Count 3.83 MC/CUMM (3.8-5.5); Red Cell Distribution Width 15.5 % (9.3-17.3); White Blood Count 4.3 T/CUMM (4-12)
[2017-07-09 07:24] LABS: Calcium 8.9 MG/DL (8.5-10.1); Osmolality,Calculated 279.3 MOS/KG (273-304); Potassium 3.3 MMOL/L (3.5-5.1)
[2017-07-09] MEDS ORDERED: LIDOCAINE 100 MG/5 ML SYRINGE ONE (09:00)
[2017-07-09] MEDS ORDERED: PROPOFOL 200 MG/20 ML VIAL IV ONE (09:00)
[2017-07-09] MEDS: OLOPATADINE 0.1% OPH SOLN 5 ML BOTTLE BOTH EYES SCH (09:48)
[2017-07-09] MEDS: BICALUTAMIDE 50 MG TABLET PO SCH ×2 (09:56→14:45)
[2017-07-09] MEDS: hydroCHLOROthiazide 12.5 MG CAPSULE PO SCH ×2 (09:57→14:46)
[2017-07-09] MEDS: DOCUSATE SODIUM 100 MG CAPSULE PO SCH ×2 (09:57→20:57)
[2017-07-09] MEDS: FOLIC ACID 1 MG TABLET PO SCH ×2 (09:57→14:46)
[2017-07-09] MEDS: POTASSIUM CHLORIDE 20 MEQ TABLET PO SCH ×2 (09:58→14:46)
[2017-07-09] MEDS: MAGNESIUM CHLORIDE 64 MG TABLET PO SCH ×2 (09:58→20:57)
[2017-07-09] MEDS: PANTOPRAZOLE 40 MG TABLET PO SCH ×2 (09:58→14:47)
[2017-07-09] MEDS: SIMETHICONE CHEW 80 MG TABLET PO SCH ×3 (09:59→18:38)
[2017-07-09] MEDS: ATORVASTATIN 40 MG TABLET PO SCH (20:57)
[2017-07-10 06:25] LABS: Basophils % 0.5 % (0.0-0.8); Eosinophils # 0.2 10*3/uL (0.0-0.87); Eosinophils % 4.1 % (0.00-10.9); Hematocrit 30.8 VOL% (42.0-52.0); Hemoglobin 10.1 GM/DL (14.0-18.0); Immature Granulocytes % 0.2 %; Immature Granulocytes Absolute 0.01 #; Lymphocytes # 1.6 10*3/uL (1.4-4.0); Lymphocytes % 37.4 % (21.2-54.2); Mean Corpuscular HGB Conc 32.8 GM/DL (32-36); Mean Corpuscular Hemoglobin 27 PG (27-34); Mean Corpuscular Volume 81.5 FL (87-102); Monocytes # 0.5 10*3/uL (0.11-0.8); Monocytes % 12.5 % (1.7-12.7); Neutrophils # 1.9 10*3/uL (1.4-7.4); Neutrophils % 45.3 % (38.7-73.9); Platelet Count 123 T/CUMM (130-400); Red Blood Count 3.78 MC/CUMM (3.8-5.5); Red Cell Distribution Width 15.6 % (9.3-17.3); White Blood Count 4.2 T/CUMM (4-12)
[2017-07-10 07:05] LABS: Calcium 8.9 MG/DL (8.5-10.1)
[2017-07-10 07:06] LABS: Osmolality,Calculated 281.1 MOS/KG (273-304); Potassium 3.5 MMOL/L (3.5-5.1)
[2017-07-10] MEDS: MAGNESIUM CHLORIDE 64 MG TABLET PO SCH (08:46)
[2017-07-10] MEDS: FOLIC ACID 1 MG TABLET PO SCH (08:46)
[2017-07-10] MEDS: hydroCHLOROthiazide 12.5 MG CAPSULE PO SCH (08:46)
[2017-07-10] MEDS: DOCUSATE SODIUM 100 MG CAPSULE PO SCH (08:46)
[2017-07-10] MEDS: SIMETHICONE CHEW 80 MG TABLET PO SCH (08:46)
[2017-07-10] MEDS: BICALUTAMIDE 50 MG TABLET PO SCH (08:46)
[2017-07-10] MEDS: POTASSIUM CHLORIDE 20 MEQ TABLET PO SCH (08:46)
[2017-07-10] MEDS: PANTOPRAZOLE 40 MG TABLET PO SCH (08:47)
[2017-07-10] MEDS: OLOPATADINE 0.1% OPH SOLN 5 ML BOTTLE BOTH EYES SCH (08:49)
[2017-07-10 12:53] VITALS: BP 141/63
== END 2017-07-10 12:55 | disposition home or self-care (01) | DRG 378 ==
LOC: N.ED 23:27 → N.EDINP 23:27 → N.4E 07-07 02:02
PROVIDERS: ADMIT Internal Medicine; ATTEND Internal Medicine

== ENCOUNTER 2020-03-12 12:43 | Observation (INO) ==
[2020-03-12 13:37] LABS: Basophils % 0.2 % (0.0-0.8); Eosinophils # 0.1 10*3/uL (0.0-0.87); Eosinophils % 2.7 % (0.00-10.9); Hematocrit 41.8 VOL% (42.0-52.0); Hemoglobin 13.2 GM/DL (14.0-18.0); Immature Granulocytes % 0.2 %; Immature Granulocytes Absolute 0.01 #; Lymphocytes # 1.8 10*3/uL (1.4-4.0); Lymphocytes % 38.3 % (21.2-54.2); Mean Corpuscular HGB Conc 31.6 GM/DL (32-36); Mean Corpuscular Volume 87.8 FL (87-102); Mean Platelet Volume 11.4 FL (9.6-12.0); Monocytes % 11.1 % (1.7-12.7); Neutrophils % 47.5 % (38.7-73.9); Platelet Count 104 T/CUMM (130-400); Red Blood Count 4.76 MC/CUMM (3.8-5.5); Red Cell Distribution Width 15.4 % (9.3-17.3); White Blood Count 4.8 T/CUMM (4-12)
[2020-03-12] MEDS ORDERED: hydrALAZINE 20 MG/1 ML VIAL IV STA (13:42)
[2020-03-12 13:46] LABS: PT Patient Result 10.9 SECS (9.8-11.9); Partial Thromboplastin Time 22.3 SECS (23.9-33.8)
[2020-03-12] MEDS ORDERED: ENOXAPARIN 80 MG/0.8 ML SYRINGE SUBCUT STA (13:50)
[2020-03-12 14:00] LABS: Albumin 3.4 G/DL (3.4-5.0); Bilirubin,Total 0.4 MG/DL (0.2-1.0); Calcium 9.7 MG/DL (8.5-10.1); Osmolality,Calculated 278.5 MOS/KG (273-304); Total Protein 8.4 G/DL (6.4-8.3)
[2020-03-12] MEDS ORDERED: ASPIRIN 325 MG TABLET PO STA (14:04)
[2020-03-12 14:19] LABS: Apearance,Urine CLEAR (Clear); Bilirubin,Urine Negative (Negative); Blood, Urine Small mg/dL (Negative); Glucose,Urine (UA) Negative (Negative); Ketones,Urine Negative (Negative); Mucus,Urine Occasional /LPF (Occasional); Nitrite,Urine Negative (Negative); Protein,Urine 30 MG/DL; RBC,Urine <1 /HPF (0-4); Squamous Epithelial Cell,Urine Occasional /HPF (0-10); Urine Color Straw (Yellow); Urine Specific Gravity 1.004 (1.001-1.035); Urine Urobilinogen < 2.0 EU/DL (0.2-1.0); WBC,Urine <1 /HPF (0-6)
[2020-03-12] MEDS ORDERED: hydrALAZINE 20 MG/1 ML VIAL IV PRN (15:02)
[2020-03-12] MEDS ORDERED: NITROGLYCERIN SL 0.4 MG TABLET SL PRN (15:09)
[2020-03-12] MEDS ORDERED: ONDANSETRON 4 MG/2 ML VIAL IV PRN (16:59)
[2020-03-12] MEDS ORDERED: ACETAMINOPHEN 325 MG TABLET PO PRN (16:59)
[2020-03-12 17:22] LABS: Hypochromasia 2+; Microcytosis Slight; Platelet Estimate Adequate; Polychromasia Few
[2020-03-12] MEDS: SODIUM CHLORIDE 0.45% 1,000 ML IV SCH (18:04)
[2020-03-12] MEDS ORDERED: APIXABAN 2.5 MG TABLET PO SCH (21:00)
[2020-03-12] MEDS: ATORVASTATIN 80 MG TABLET PO SCH (21:38)
[2020-03-12] MEDS: carvediloL 3.125 MG TABLET PO SCH (21:38)
[2020-03-12] MEDS: APIXABAN 2.5 MG TABLET PO SCH (21:38)
[2020-03-13] MEDS: SODIUM CHLORIDE 0.45% 1,000 ML IV SCH ×4 (02:21→18:40)
[2020-03-13 06:18] LABS: Basophils % 0.2 % (0.0-0.8); Eosinophils # 0.1 10*3/uL (0.0-0.87); Eosinophils % 3.4 % (0.00-10.9); Hematocrit 39.5 VOL% (42.0-52.0); Hemoglobin 12.6 GM/DL (14.0-18.0); Immature Granulocytes % 0.2 %; Immature Granulocytes Absolute 0.01 #; Lymphocytes # 1.8 10*3/uL (1.4-4.0); Lymphocytes % 43.2 % (21.2-54.2); Mean Corpuscular HGB Conc 31.9 GM/DL (32-36); Mean Corpuscular Volume 87.2 FL (87-102); Mean Platelet Volume 10.7 FL (9.6-12.0); Monocytes % 13.5 % (1.7-12.7); Neutrophils % 39.5 % (38.7-73.9); Platelet Count 91 T/CUMM (130-400); Red Blood Count 4.53 MC/CUMM (3.8-5.5); Red Cell Distribution Width 15.2 % (9.3-17.3); White Blood Count 4.1 T/CUMM (4-12)
[2020-03-13 06:29] LABS: Calcium 9.3 MG/DL (8.5-10.1); Osmolality,Calculated 276.5 MOS/KG (273-304)
[2020-03-13 06:33] LABS: Risk Ratio 1.94; VLDL CHOLESTEROL 14.4 MG/DL
[2020-03-13 06:36] LABS: Hypochromasia 2+; Microcytosis 1+; Ovalocytes Few
[2020-03-13 06:37] LABS: Platelet Estimate Decreased
[2020-03-13] MEDS: APIXABAN 2.5 MG TABLET PO SCH ×2 (08:26→20:45)
[2020-03-13] MEDS: carvediloL 3.125 MG TABLET PO SCH ×2 (08:26→20:45)
[2020-03-13] MEDS: ASPIRIN CHEW 81 MG TABLET PO SCH (08:26)
[2020-03-13] MEDS: DOCUSATE SODIUM 100 MG CAPSULE PO SCH (08:26)
[2020-03-13] MEDS: PANTOPRAZOLE 40 MG TABLET PO SCH (08:26)
[2020-03-13] MEDS: ISOSORBIDE MONONITRATE 30 MG TABLET PO SCH (08:37)
[2020-03-13] MEDS: MEGESTROL 40 MG TABLET PO SCH ×2 (08:37→20:44)
[2020-03-13] MEDS ORDERED: ASPIRIN EC 81 MG TABLET PO SCH (09:00)
[2020-03-13] MEDS: OLOPATADINE 0.1% OPH SOLN 5 ML BOTTLE BOTH EYES SCH (09:51)
[2020-03-13] MEDS: FLUTICASONE 50 MCG NASAL SPRAY 16 GM BOTTLE BOTH NARES SCH (10:07)
[2020-03-13] MEDS: Enzalutamide [Xtandi] 160 MG PO SCH (16:24)
[2020-03-13] MEDS: CETIRIZINE 10 MG TABLET PO SCH (20:44)
[2020-03-13] MEDS: ATORVASTATIN 80 MG TABLET PO SCH (20:45)
[2020-03-13] MEDS: GABAPENTIN 300 MG CAPSULE PO SCH (20:45)
[2020-03-14] MEDS: SODIUM CHLORIDE 0.45% 1,000 ML IV SCH (00:04)
[2020-03-14 06:00] LABS: Basophils % 0.2 % (0.0-0.8); Eosinophils # 0.2 10*3/uL (0.0-0.87); Eosinophils % 3.3 % (0.00-10.9); Hematocrit 40.4 VOL% (42.0-52.0); Hemoglobin 12.6 GM/DL (14.0-18.0); Immature Granulocytes % 0.2 %; Immature Granulocytes Absolute 0.01 #; Lymphocytes % 43.1 % (21.2-54.2); Mean Corpuscular HGB Conc 31.2 GM/DL (32-36); Mean Corpuscular Volume 87.4 FL (87-102); Mean Platelet Volume 11.2 FL (9.6-12.0); Monocytes % 12.6 % (1.7-12.7); Neutrophils % 40.6 % (38.7-73.9); Platelet Count 112 T/CUMM (130-400); Red Blood Count 4.62 MC/CUMM (3.8-5.5); Red Cell Distribution Width 15.4 % (9.3-17.3); White Blood Count 4.6 T/CUMM (4-12)
[2020-03-14 06:24] LABS: Hypochromasia 1+; Ovalocytes Slight; Platelet Estimate Decreased
[2020-03-14 06:25] LABS: Microcytosis Slight
[2020-03-14 06:45] LABS: Calcium 9.2 MG/DL (8.5-10.1); Osmolality,Calculated 281.3 MOS/KG (273-304)
[2020-03-14] MEDS: DOCUSATE SODIUM 100 MG CAPSULE PO SCH (08:38)
[2020-03-14] MEDS: OLOPATADINE 0.1% OPH SOLN 5 ML BOTTLE BOTH EYES SCH (08:38)
[2020-03-14] MEDS: Enzalutamide [Xtandi] 160 MG PO SCH (08:38)
[2020-03-14] MEDS: ISOSORBIDE MONONITRATE 30 MG TABLET PO SCH (08:38)
[2020-03-14] MEDS: ASPIRIN CHEW 81 MG TABLET PO SCH (08:38)
[2020-03-14] MEDS: APIXABAN 2.5 MG TABLET PO SCH ×2 (08:38→21:05)
[2020-03-14] MEDS: carvediloL 3.125 MG TABLET PO SCH ×2 (08:38→21:05)
[2020-03-14] MEDS: PANTOPRAZOLE 40 MG TABLET PO SCH (08:38)
[2020-03-14] MEDS: MEGESTROL 40 MG TABLET PO SCH ×2 (08:38→21:03)
[2020-03-14] MEDS: FLUTICASONE 50 MCG NASAL SPRAY 16 GM BOTTLE BOTH NARES SCH (08:39)
[2020-03-14] MEDS: LISINOPRIL/HCTZ 10-12.5 MG TABLET PO SCH (14:13)
[2020-03-14] MEDS: ATORVASTATIN 80 MG TABLET PO SCH (21:03)
[2020-03-14] MEDS: CETIRIZINE 10 MG TABLET PO SCH (21:05)
[2020-03-14] MEDS: GABAPENTIN 300 MG CAPSULE PO SCH (21:05)
[2020-03-15] MEDS ORDERED: PANTOPRAZOLE 40 MG TABLET PO ONE
[2020-03-15 05:16] LABS: Basophils % 0.2 % (0.0-0.8); Eosinophils # 0.2 10*3/uL (0.0-0.87); Hematocrit 38.8 VOL% (42.0-52.0); Hemoglobin 12.4 GM/DL (14.0-18.0); Immature Granulocytes % 0.2 %; Immature Granulocytes Absolute 0.01 #; Lymphocytes # 1.7 10*3/uL (1.4-4.0); Lymphocytes % 33.4 % (21.2-54.2); Mean Corpuscular Volume 87.8 FL (87-102); Mean Platelet Volume 11.7 FL (9.6-12.0); Neutrophils % 49.2 % (38.7-73.9); Platelet Count 118 T/CUMM (130-400); Red Blood Count 4.42 MC/CUMM (3.8-5.5); Red Cell Distribution Width 15.5 % (9.3-17.3); White Blood Count 4.9 T/CUMM (4-12)
[2020-03-15 05:41] LABS: Calcium 9.1 MG/DL (8.5-10.1); Osmolality,Calculated 281.4 MOS/KG (273-304)
[2020-03-15 05:44] LABS: Hypochromasia 1+; Microcytosis Slight; Platelet Estimate Decreased
[2020-03-15 08:07] VITALS: BP 123/68
[2020-03-15] MEDS: ISOSORBIDE MONONITRATE 30 MG TABLET PO SCH (08:54)
[2020-03-15] MEDS: DOCUSATE SODIUM 100 MG CAPSULE PO SCH (08:55)
[2020-03-15] MEDS: MEGESTROL 40 MG TABLET PO SCH (08:55)
[2020-03-15] MEDS: Enzalutamide [Xtandi] 160 MG PO SCH (08:55)
[2020-03-15] MEDS: PANTOPRAZOLE 40 MG TABLET PO SCH (08:55)
[2020-03-15] MEDS: FLUTICASONE 50 MCG NASAL SPRAY 16 GM BOTTLE BOTH NARES SCH (08:55)
[2020-03-15] MEDS: carvediloL 3.125 MG TABLET PO SCH (08:55)
[2020-03-15] MEDS: LISINOPRIL/HCTZ 10-12.5 MG TABLET PO SCH (08:55)
[2020-03-15] MEDS: APIXABAN 2.5 MG TABLET PO SCH (08:55)
[2020-03-15] MEDS: ASPIRIN CHEW 81 MG TABLET PO SCH (08:55)
[2020-03-15] MEDS: OLOPATADINE 0.1% OPH SOLN 5 ML BOTTLE BOTH EYES SCH (08:55)
== END 2020-03-15 10:50 | disposition home health service (06) ==
LOC: N.ED 12:43 → INTOOBSV 14:52 → N.EDINP 14:52 → N.TELEN 16:49
PROVIDERS: ADMIT Internal Medicine; ATTEND Internal Medicine

== ENCOUNTER 2020-05-24 15:28 | Observation (INO) ==
[2020-05-24 16:10] LABS: Basophils % 0.2 % (0.0-0.8); Eosinophils # 0.1 10*3/uL (0.0-0.87); Eosinophils % 2.1 % (0.00-10.9); Hematocrit 30.6 VOL% (42.0-52.0); Hemoglobin 9.8 GM/DL (14.0-18.0); Immature Granulocytes % 0.4 %; Immature Granulocytes Absolute 0.02 #; Lymphocytes # 1.7 10*3/uL (1.4-4.0); Lymphocytes % 35.4 % (21.2-54.2); Mean Corpuscular Volume 87.4 FL (87-102); Mean Platelet Volume 11.4 FL (9.6-12.0); Monocytes % 10.5 % (1.7-12.7); Neutrophils % 51.4 % (38.7-73.9); Red Cell Distribution Width 16.6 % (9.3-17.3); White Blood Count 4.8 T/CUMM (4-12)
[2020-05-24 16:11] LABS: Platelet Count 119 T/CUMM (130-400)
[2020-05-24] MEDS ORDERED: SODIUM CHLORIDE 0.9% 1,000 ML IV STA (16:19)
[2020-05-24 16:24] LABS: Albumin 3.1 G/DL (3.4-5.0); Bilirubin,Total 0.7 MG/DL (0.2-1.0); Calcium 9.5 MG/DL (8.5-10.1); Osmolality,Calculated 288.1 MOS/KG (273-304); Total Protein 7.9 G/DL (6.4-8.3)
[2020-05-24 16:30] LABS: PT Patient Result 11.1 SECS (9.8-11.9); Partial Thromboplastin Time 28.8 SECS (23.9-33.8)
[2020-05-24 16:46] LABS: Hypochromasia 1+; Ovalocytes Slight; Platelet Estimate Decreased
[2020-05-24 16:47] LABS: Microcytosis Slight
[2020-05-24] MEDS ORDERED: ONDANSETRON 4 MG/2 ML VIAL IV PRN (18:56)
[2020-05-24] MEDS ORDERED: MECLIZINE 25 MG TABLET PO PRN (18:56)
[2020-05-24] MEDS ORDERED: SODIUM CHLORIDE 0.9% 1,000 ML IV PRN (18:56)
[2020-05-24] MEDS ORDERED: ACETAMINOPHEN 325 MG TABLET PO PRN (18:56)
[2020-05-24] MEDS ORDERED: ONDANSETRON 4 MG TABLET PO PRN (18:56)
[2020-05-24 19:30] LABS: Hematocrit 31.1 VOL% (42.0-52.0)
[2020-05-24] MEDS: SODIUM CHLORIDE 0.45% 1,000 ML IV SCH (19:30)
[2020-05-24] MEDS: CETIRIZINE 10 MG TABLET PO SCH (21:15)
[2020-05-24] MEDS: MEGESTROL 40 MG TABLET PO SCH (21:15)
[2020-05-24] MEDS: carvediloL 3.125 MG TABLET PO SCH (21:15)
[2020-05-24] MEDS: GABAPENTIN 300 MG CAPSULE PO SCH (21:15)
[2020-05-24] MEDS: MAGNESIUM CHLORIDE 64 MG TABLET PO SCH (21:15)
[2020-05-24] MEDS: ATORVASTATIN 80 MG TABLET PO SCH (21:15)
[2020-05-25 02:04] LABS: Hematocrit 26.1 VOL% (42.0-52.0); Hemoglobin 8.4 GM/DL (14.0-18.0)
[2020-05-25] MEDS: SODIUM CHLORIDE 0.45% 1,000 ML IV SCH ×3 (03:58→23:54)
[2020-05-25] MEDS ORDERED: OLOPATADINE 0.2% BOTH EYES SCH (09:00)
[2020-05-25] MEDS ORDERED: NON-FORMULARY MEDICATION (Enzalutamide [Xtandi] 40 mg Capsule) PO SCH (09:00)
[2020-05-25] MEDS: DOCUSATE SODIUM 100 MG CAPSULE PO SCH (09:27)
[2020-05-25] MEDS: MAGNESIUM CHLORIDE 64 MG TABLET PO SCH ×2 (09:28→20:51)
[2020-05-25] MEDS: PANTOPRAZOLE 40 MG TABLET PO SCH (09:28)
[2020-05-25] MEDS: LISINOPRIL/HCTZ 10-12.5 MG TABLET PO SCH (09:28)
[2020-05-25] MEDS: CHOLECALCIFEROL 1,000 UNIT TABLET PO SCH (09:28)
[2020-05-25] MEDS: MEGESTROL 40 MG TABLET PO SCH ×2 (09:28→20:50)
[2020-05-25] MEDS: FERROUS SULFATE 325 MG TABLET PO SCH (09:28)
[2020-05-25] MEDS: ISOSORBIDE MONONITRATE 30 MG TABLET PO SCH (09:29)
[2020-05-25] MEDS: carvediloL 3.125 MG TABLET PO SCH ×2 (09:29→20:12)
[2020-05-25] MEDS: FLUTICASONE 50 MCG NASAL SPRAY 16 GM BOTTLE BOTH NARES SCH (09:30)
[2020-05-25 11:31] LABS: Hematocrit 31.6 VOL% (42.0-52.0); Hemoglobin 10.5 GM/DL (14.0-18.0)
[2020-05-25] MEDS: ASPIRIN EC 81 MG TABLET PO SCH (13:45)
[2020-05-25 14:23] LABS: Hemoglobin 10.4 GM/DL (14.0-18.0)
[2020-05-25] MEDS: CETIRIZINE 10 MG TABLET PO SCH (20:50)
[2020-05-25] MEDS: GABAPENTIN 300 MG CAPSULE PO SCH (20:50)
[2020-05-25] MEDS: ATORVASTATIN 80 MG TABLET PO SCH (20:51)
[2020-05-26 06:21] LABS: Basophils % 0.2 % (0.0-0.8); Eosinophils # 0.2 10*3/uL (0.0-0.87); Eosinophils % 3.2 % (0.00-10.9); Hemoglobin 10.2 GM/DL (14.0-18.0); Immature Granulocytes % 0.4 %; Immature Granulocytes Absolute 0.02 #; Lymphocytes # 1.9 10*3/uL (1.4-4.0); Lymphocytes % 35.4 % (21.2-54.2); Mean Corpuscular HGB Conc 32.9 GM/DL (32-36); Mean Corpuscular Volume 87.8 FL (87-102); Mean Platelet Volume 11.3 FL (9.6-12.0); Monocytes % 11.2 % (1.7-12.7); Neutrophils % 49.6 % (38.7-73.9); Red Blood Count 3.53 MC/CUMM (3.8-5.5); Red Cell Distribution Width 15.9 % (9.3-17.3); White Blood Count 5.4 T/CUMM (4-12)
[2020-05-26 06:25] LABS: Platelet Count 94 T/CUMM (130-400)
[2020-05-26 06:42] LABS: Calcium 8.7 MG/DL (8.5-10.1); Osmolality,Calculated 287.8 MOS/KG (273-304)
[2020-05-26 06:50] LABS: Hypochromasia 2+; Ovalocytes 2+; Platelet Estimate Decreased
[2020-05-26 06:52] LABS: Microcytosis 1+
[2020-05-26] MEDS: SODIUM CHLORIDE 0.45% 1,000 ML IV SCH ×3 (08:13→11:03)
[2020-05-26] MEDS: MAGNESIUM CHLORIDE 64 MG TABLET PO SCH ×2 (09:30→21:06)
[2020-05-26] MEDS: ASPIRIN EC 81 MG TABLET PO SCH (09:31)
[2020-05-26] MEDS: carvediloL 3.125 MG TABLET PO SCH ×2 (09:31→21:06)
[2020-05-26] MEDS: CHOLECALCIFEROL 1,000 UNIT TABLET PO SCH (09:31)
[2020-05-26] MEDS: LISINOPRIL/HCTZ 10-12.5 MG TABLET PO SCH (09:31)
[2020-05-26] MEDS: FERROUS SULFATE 325 MG TABLET PO SCH (09:31)
[2020-05-26] MEDS: PANTOPRAZOLE 40 MG TABLET PO SCH (09:31)
[2020-05-26] MEDS: MEGESTROL 40 MG TABLET PO SCH ×2 (09:31→21:06)
[2020-05-26] MEDS: DOCUSATE SODIUM 100 MG CAPSULE PO SCH (09:31)
[2020-05-26] MEDS: ISOSORBIDE MONONITRATE 30 MG TABLET PO SCH (09:31)
[2020-05-26] MEDS: FLUTICASONE 50 MCG NASAL SPRAY 16 GM BOTTLE BOTH NARES SCH (11:03)
[2020-05-26] MEDS: POTASSIUM CHLORIDE RIDER 10 MEQ in PREMIX 1 EACH IV PRN ×5 (11:22→21:08)
[2020-05-26] MEDS: SODIUM CHLOR 0.45% KCL 20 MEQ 20 MEQ/1,000 ML BAG IV SCH (14:48)
[2020-05-26] MEDS: ATORVASTATIN 80 MG TABLET PO SCH (21:06)
[2020-05-26] MEDS: GABAPENTIN 300 MG CAPSULE PO SCH (21:06)
[2020-05-26] MEDS: CETIRIZINE 10 MG TABLET PO SCH (21:06)
[2020-05-27 06:24] LABS: Basophils % 0.2 % (0.0-0.8); Eosinophils # 0.2 10*3/uL (0.0-0.87); Eosinophils % 3.6 % (0.00-10.9); Hematocrit 32.4 VOL% (42.0-52.0); Hemoglobin 10.6 GM/DL (14.0-18.0); Immature Granulocytes % 0.2 %; Immature Granulocytes Absolute 0.01 #; Lymphocytes # 1.8 10*3/uL (1.4-4.0); Lymphocytes % 40.2 % (21.2-54.2); Mean Corpuscular HGB Conc 32.7 GM/DL (32-36); Mean Corpuscular Volume 87.1 FL (87-102); Mean Platelet Volume 11.9 FL (9.6-12.0); Monocytes % 12.9 % (1.7-12.7); Neutrophils % 42.9 % (38.7-73.9); Red Blood Count 3.72 MC/CUMM (3.8-5.5); Red Cell Distribution Width 16.2 % (9.3-17.3); White Blood Count 4.4 T/CUMM (4-12)
[2020-05-27 06:26] LABS: Platelet Count 96 T/CUMM (130-400)
[2020-05-27 06:41] LABS: Calcium 8.7 MG/DL (8.5-10.1); Osmolality,Calculated 287.7 MOS/KG (273-304)
[2020-05-27 06:44] LABS: Hypochromasia Slight; Microcytosis Slight; Platelet Estimate Decreased
[2020-05-27] MEDS: POTASSIUM CHLORIDE RIDER 10 MEQ in PREMIX 1 EACH IV PRN (07:12)
[2020-05-27] MEDS: LISINOPRIL/HCTZ 10-12.5 MG TABLET PO SCH (08:09)
[2020-05-27] MEDS: MAGNESIUM CHLORIDE 64 MG TABLET PO SCH ×2 (08:09→21:07)
[2020-05-27] MEDS: PANTOPRAZOLE 40 MG TABLET PO SCH (08:10)
[2020-05-27] MEDS: ISOSORBIDE MONONITRATE 30 MG TABLET PO SCH (08:10)
[2020-05-27] MEDS: FERROUS SULFATE 325 MG TABLET PO SCH (08:10)
[2020-05-27] MEDS: carvediloL 3.125 MG TABLET PO SCH ×2 (08:10→21:08)
[2020-05-27] MEDS: CHOLECALCIFEROL 1,000 UNIT TABLET PO SCH (08:10)
[2020-05-27] MEDS: ASPIRIN EC 81 MG TABLET PO SCH (08:10)
[2020-05-27] MEDS: MEGESTROL 40 MG TABLET PO SCH ×2 (08:10→21:08)
[2020-05-27] MEDS: DOCUSATE SODIUM 100 MG CAPSULE PO SCH (08:10)
[2020-05-27] MEDS: SODIUM CHLOR 0.45% KCL 20 MEQ 20 MEQ/1,000 ML BAG IV SCH ×3 (08:11→21:09)
[2020-05-27] MEDS: FLUTICASONE 50 MCG NASAL SPRAY 16 GM BOTTLE BOTH NARES SCH (08:11)
[2020-05-27] MEDS ORDERED: MAGNESIUM HYDROXIDE SUSP 30 ML UDCUP PO ONE (13:40)
[2020-05-27] MEDS: GABAPENTIN 300 MG CAPSULE PO SCH (21:07)
[2020-05-27] MEDS: CETIRIZINE 10 MG TABLET PO SCH (21:07)
[2020-05-27] MEDS: APIXABAN 2.5 MG TABLET PO SCH (21:08)
[2020-05-27] MEDS: ATORVASTATIN 80 MG TABLET PO SCH (21:08)
[2020-05-28 06:18] LABS: Basophils % 0.4 % (0.0-0.8); Eosinophils # 0.2 10*3/uL (0.0-0.87); Eosinophils % 3.8 % (0.00-10.9); Hematocrit 33.2 VOL% (42.0-52.0); Hemoglobin 10.7 GM/DL (14.0-18.0); Immature Granulocytes % 0.2 %; Immature Granulocytes Absolute 0.01 #; Lymphocytes # 1.8 10*3/uL (1.4-4.0); Lymphocytes % 39.8 % (21.2-54.2); Mean Corpuscular HGB Conc 32.2 GM/DL (32-36); Mean Corpuscular Volume 87.6 FL (87-102); Mean Platelet Volume 11.8 FL (9.6-12.0); Monocytes % 11.9 % (1.7-12.7); Neutrophils % 43.9 % (38.7-73.9); Red Blood Count 3.79 MC/CUMM (3.8-5.5); Red Cell Distribution Width 16.2 % (9.3-17.3); White Blood Count 4.5 T/CUMM (4-12)
[2020-05-28 06:24] LABS: Platelet Count 97 T/CUMM (130-400)
[2020-05-28 06:43] LABS: Hypochromasia 1+; Microcytosis Slight; Ovalocytes Slight; Platelet Estimate Decreased
[2020-05-28 06:46] LABS: Calcium 8.7 MG/DL (8.5-10.1); Osmolality,Calculated 284.8 MOS/KG (273-304)
[2020-05-28] MEDS: POTASSIUM CHLORIDE RIDER 10 MEQ in PREMIX 1 EACH IV PRN ×2 (07:12→11:27)
[2020-05-28] MEDS: FLUTICASONE 50 MCG NASAL SPRAY 16 GM BOTTLE BOTH NARES SCH (10:08)
[2020-05-28] MEDS: CHOLECALCIFEROL 1,000 UNIT TABLET PO SCH (10:11)
[2020-05-28] MEDS: MAGNESIUM CHLORIDE 64 MG TABLET PO SCH (10:12)
[2020-05-28] MEDS: LISINOPRIL/HCTZ 10-12.5 MG TABLET PO SCH (10:14)
[2020-05-28] MEDS: carvediloL 3.125 MG TABLET PO SCH (10:14)
[2020-05-28] MEDS: DOCUSATE SODIUM 100 MG CAPSULE PO SCH (10:16)
[2020-05-28] MEDS: ASPIRIN EC 81 MG TABLET PO SCH (10:16)
[2020-05-28] MEDS: FERROUS SULFATE 325 MG TABLET PO SCH (10:17)
[2020-05-28] MEDS: APIXABAN 2.5 MG TABLET PO SCH (10:17)
[2020-05-28] MEDS: PANTOPRAZOLE 40 MG TABLET PO SCH (10:18)
[2020-05-28] MEDS: ISOSORBIDE MONONITRATE 30 MG TABLET PO SCH (10:37)
[2020-05-28] MEDS: MEGESTROL 40 MG TABLET PO SCH (10:37)
[2020-05-28] MEDS: SODIUM CHLOR 0.45% KCL 20 MEQ 20 MEQ/1,000 ML BAG IV SCH (11:25)
[2020-05-28 16:09] VITALS: BP 137/45
[2020-06-13] MEDS ORDERED: CYANOCOBALAMIN 1000 MCG/1 ML VIAL IM SCH (09:00)
== END 2020-05-28 18:28 | disposition home or self-care (01) ==
LOC: N.ED 15:28 → INTOOBSV 17:39 → N.EDINP 17:39 → N.3E 18:53
PROVIDERS: ADMIT Internal Medicine; ATTEND Internal Medicine

== ENCOUNTER 2020-06-03 10:24 | Observation (INO) ==
[2020-06-03] MEDS ORDERED: PANTOPRAZOLE INJ 80 MG in SODIUM CHLORIDE 0.9% 100 ML IV STA (10:40)
[2020-06-03] MEDS ORDERED: SODIUM CHLORIDE 0.9% 1,000 ML IV STA (10:40)
[2020-06-03 11:07] LABS: Basophils % 0.3 % (0.0-0.8); Eosinophils # 0.2 10*3/uL (0.0-0.87); Eosinophils % 2.2 % (0.00-10.9); Hemoglobin 11.5 GM/DL (14.0-18.0); Immature Granulocytes % 0.3 %; Immature Granulocytes Absolute 0.02 #; Lymphocytes % 29.8 % (21.2-54.2); Mean Corpuscular HGB Conc 31.9 GM/DL (32-36); Mean Corpuscular Volume 89.6 FL (87-102); Mean Platelet Volume 10.8 FL (9.6-12.0); Monocytes % 9.6 % (1.7-12.7); Neutrophils % 57.8 % (38.7-73.9); Platelet Count 149 T/CUMM (130-400); Red Blood Count 4.02 MC/CUMM (3.8-5.5); Red Cell Distribution Width 16.6 % (9.3-17.3); White Blood Count 6.8 T/CUMM (4-12)
[2020-06-03 11:33] LABS: Alanine Aminotransferase 16 U/L (16-61); Albumin 3.2 G/DL (3.4-5.0); Alkaline Phosphatase 105 U/L (45-117); Aspartate Amino Transferase 25 U/L (0-37); Bilirubin,Total < 0.39 MG/DL (0.2-1.0); Blood Urea Nitrogen 23 MG/DL (7-18); Calcium 9.7 MG/DL (8.5-10.1); Estimated Glom Filtration Rate 31 ML/MIN; Glucose 94 MG/DL (74-106); Osmolality,Calculated 284.3 MOS/KG (273-304); Total Protein 8.3 G/DL (6.4-8.3)
[2020-06-03] MEDS ORDERED: DOCUSATE SODIUM 100 MG CAPSULE PO PRN (13:22)
[2020-06-03] MEDS ORDERED: MECLIZINE 25 MG TABLET PO PRN (13:22)
[2020-06-03] MEDS ORDERED: ONDANSETRON 4 MG TABLET PO PRN (13:22)
[2020-06-03] MEDS ORDERED: CYANOCOBALAMIN 1000 MCG/1 ML VIAL IM SCH (13:30)
[2020-06-03] MEDS: PANTOPRAZOLE INJ 200 MG in SODIUM CHLORIDE 0.9% 250 ML IV SCH (15:31)
[2020-06-03] MEDS: carvediloL 3.125 MG TABLET PO SCH (17:01)
[2020-06-03] MEDS: MEGESTROL 40 MG TABLET PO SCH (17:01)
[2020-06-03] MEDS: LACTATED RINGERS 1,000 ML IV SCH ×2 (17:01→21:18)
[2020-06-03 17:37] LABS: Hematocrit 33.4 VOL% (42.0-52.0); Hemoglobin 10.7 GM/DL (14.0-18.0)
[2020-06-03] MEDS: ATORVASTATIN 40 MG TABLET PO SCH (21:13)
[2020-06-03] MEDS: CETIRIZINE 10 MG TABLET PO SCH (21:13)
[2020-06-03] MEDS: GABAPENTIN 300 MG CAPSULE PO SCH (21:13)
[2020-06-04] MEDS: LACTATED RINGERS 1,000 ML IV SCH ×4 (03:22→22:11)
[2020-06-04 08:02] LABS: Osmolality,Calculated 286.8 MOS/KG (273-304)
[2020-06-04 08:24] LABS: Basophils % 0.4 % (0.0-0.8); Eosinophils # 0.2 10*3/uL (0.0-0.87); Hemoglobin 10.2 GM/DL (14.0-18.0); Immature Granulocytes % 0.4 %; Immature Granulocytes Absolute 0.02 #; Lymphocytes # 1.9 10*3/uL (1.4-4.0); Lymphocytes % 37.3 % (21.2-54.2); Mean Corpuscular HGB Conc 31.9 GM/DL (32-36); Mean Corpuscular Volume 89.6 FL (87-102); Mean Platelet Volume 11.1 FL (9.6-12.0); Monocytes % 9.4 % (1.7-12.7); Neutrophils % 48.5 % (38.7-73.9); Platelet Count 127 T/CUMM (130-400); Red Blood Count 3.57 MC/CUMM (3.8-5.5); Red Cell Distribution Width 16.5 % (9.3-17.3)
[2020-06-04] MEDS: MAGNESIUM CHLORIDE 64 MG TABLET PO SCH ×2 (08:26→13:16)
[2020-06-04] MEDS: FERROUS SULFATE 325 MG TABLET PO SCH (08:27)
[2020-06-04] MEDS: MULTIVITAMIN (CENTRUM) TABLET PO SCH (08:27)
[2020-06-04] MEDS: POTASSIUM CHLORIDE 20 MEQ TABLET PO SCH (08:27)
[2020-06-04] MEDS: ISOSORBIDE MONONITRATE 30 MG TABLET PO SCH (08:27)
[2020-06-04] MEDS: CHOLECALCIFEROL 1,000 UNIT TABLET PO SCH (08:27)
[2020-06-04] MEDS: TAMSULOSIN 0.4 MG CAPSULE PO SCH (08:27)
[2020-06-04] MEDS: carvediloL 3.125 MG TABLET PO SCH ×2 (08:27→16:42)
[2020-06-04] MEDS: OLOPATADINE 0.2% BOTH EYES SCH (08:34)
[2020-06-04] MEDS: LISINOPRIL/HCTZ 10-12.5 MG TABLET PO SCH (08:37)
[2020-06-04 08:46] LABS: Hypochromasia 1+; Platelet Estimate Normal
[2020-06-04 08:47] LABS: Microcytosis Slight
[2020-06-04] MEDS ORDERED: ENZALUTAMIDE PO SCH (09:00)
[2020-06-04] MEDS: MEGESTROL 40 MG TABLET PO SCH ×2 (09:02→16:42)
[2020-06-04] MEDS: FLUTICASONE 50 MCG NASAL SPRAY 16 GM BOTTLE BOTH NARES SCH (10:53)
[2020-06-04] MEDS: PANTOPRAZOLE INJ 200 MG in SODIUM CHLORIDE 0.9% 250 ML IV SCH (14:38)
[2020-06-04] MEDS: GABAPENTIN 300 MG CAPSULE PO SCH (21:03)
[2020-06-04] MEDS: ATORVASTATIN 40 MG TABLET PO SCH (21:04)
[2020-06-04] MEDS: CETIRIZINE 10 MG TABLET PO SCH (21:06)
[2020-06-05 05:58] LABS: Basophils % 0.4 % (0.0-0.8); Eosinophils # 0.2 10*3/uL (0.0-0.87); Eosinophils % 4.1 % (0.00-10.9); Hematocrit 27.5 VOL% (42.0-52.0); Immature Granulocytes % 0.4 %; Immature Granulocytes Absolute 0.02 #; Lymphocytes # 1.6 10*3/uL (1.4-4.0); Lymphocytes % 33.5 % (21.2-54.2); Mean Corpuscular HGB Conc 32.7 GM/DL (32-36); Mean Corpuscular Volume 88.1 FL (87-102); Mean Platelet Volume 11.3 FL (9.6-12.0); Monocytes % 10.4 % (1.7-12.7); Neutrophils % 51.2 % (38.7-73.9); Platelet Count 107 T/CUMM (130-400); Red Blood Count 3.12 MC/CUMM (3.8-5.5); Red Cell Distribution Width 16.1 % (9.3-17.3); White Blood Count 4.7 T/CUMM (4-12)
[2020-06-05 06:31] LABS: Hypochromasia 1+; Microcytosis Slight; Ovalocytes Slight; Platelet Estimate Decreased
[2020-06-05 06:45] LABS: Calcium 9.1 MG/DL (8.5-10.1)
[2020-06-05] MEDS: carvediloL 3.125 MG TABLET PO SCH ×2 (07:28→16:11)
[2020-06-05] MEDS: LACTATED RINGERS 1,000 ML IV SCH ×4 (07:35→22:21)
[2020-06-05] MEDS: ISOSORBIDE MONONITRATE 30 MG TABLET PO SCH (08:44)
[2020-06-05] MEDS: LISINOPRIL/HCTZ 10-12.5 MG TABLET PO SCH (08:44)
[2020-06-05] MEDS: POTASSIUM CHLORIDE 20 MEQ TABLET PO SCH (08:45)
[2020-06-05] MEDS: MEGESTROL 40 MG TABLET PO SCH ×2 (08:45→16:11)
[2020-06-05] MEDS: MAGNESIUM CHLORIDE 64 MG TABLET PO SCH ×2 (08:45→14:06)
[2020-06-05] MEDS ORDERED: ETOMIDATE 20 MG/10 ML VIAL IV ONE (09:00)
[2020-06-05] MEDS ORDERED: propofoL 200 MG/20 ML VIAL IV ONE (09:00)
[2020-06-05] MEDS ORDERED: LIDOCAINE 2% 5 ML VIAL ONE (09:00)
[2020-06-05] MEDS: FERROUS SULFATE 325 MG TABLET PO SCH (09:33)
[2020-06-05] MEDS: MULTIVITAMIN (CENTRUM) TABLET PO SCH (09:33)
[2020-06-05] MEDS: FLUTICASONE 50 MCG NASAL SPRAY 16 GM BOTTLE BOTH NARES SCH (09:34)
[2020-06-05] MEDS: TAMSULOSIN 0.4 MG CAPSULE PO SCH (09:34)
[2020-06-05] MEDS: CHOLECALCIFEROL 1,000 UNIT TABLET PO SCH (09:34)
[2020-06-05] MEDS: OLOPATADINE 0.2% BOTH EYES SCH (09:37)
[2020-06-05] MEDS: PANTOPRAZOLE INJ 200 MG in SODIUM CHLORIDE 0.9% 250 ML IV SCH (12:12)
[2020-06-05] MEDS: ATORVASTATIN 40 MG TABLET PO SCH (21:14)
[2020-06-05] MEDS: CETIRIZINE 10 MG TABLET PO SCH (21:14)
[2020-06-05] MEDS: GABAPENTIN 300 MG CAPSULE PO SCH (21:14)
[2020-06-06 05:13] LABS: Basophils % 0.5 % (0.0-0.8); Eosinophils # 0.2 10*3/uL (0.0-0.87); Eosinophils % 5.6 % (0.00-10.9); Hematocrit 28.1 VOL% (42.0-52.0); Hemoglobin 9.1 GM/DL (14.0-18.0); Immature Granulocytes % 0.2 %; Immature Granulocytes Absolute 0.01 #; Lymphocytes # 1.6 10*3/uL (1.4-4.0); Lymphocytes % 36.5 % (21.2-54.2); Mean Corpuscular HGB Conc 32.4 GM/DL (32-36); Mean Corpuscular Volume 87.8 FL (87-102); Mean Platelet Volume 11.3 FL (9.6-12.0); Monocytes % 10.7 % (1.7-12.7); Neutrophils % 46.5 % (38.7-73.9); Platelet Count 106 T/CUMM (130-400); Red Cell Distribution Width 15.9 % (9.3-17.3); White Blood Count 4.3 T/CUMM (4-12)
[2020-06-06 05:41] LABS: Hypochromasia 1+; Microcytosis Slight; Platelet Estimate Decreased
[2020-06-06 06:03] LABS: Calcium 8.9 MG/DL (8.5-10.1); Osmolality,Calculated 284.8 MOS/KG (273-304)
[2020-06-06] MEDS: LACTATED RINGERS 1,000 ML IV SCH (06:35)
[2020-06-06] MEDS ORDERED: POTASSIUM CHLORIDE 20 MEQ TABLET PO ONE ×2 (07:19→15:00)
[2020-06-06] MEDS: MAGNESIUM CHLORIDE 64 MG TABLET PO SCH ×2 (07:30→12:18)
[2020-06-06] MEDS: MEGESTROL 40 MG TABLET PO SCH ×2 (07:30→18:05)
[2020-06-06] MEDS: carvediloL 3.125 MG TABLET PO SCH ×2 (07:30→18:05)
[2020-06-06] MEDS: POTASSIUM CHLORIDE 20 MEQ TABLET PO SCH ×2 (07:31→20:33)
[2020-06-06] MEDS: SODIUM CHLORIDE 0.45% 1,000 ML IV SCH ×2 (07:37→17:39)
[2020-06-06] MEDS: CHOLECALCIFEROL 1,000 UNIT TABLET PO SCH (09:10)
[2020-06-06] MEDS: MULTIVITAMIN (CENTRUM) TABLET PO SCH (09:11)
[2020-06-06] MEDS: ASPIRIN EC 81 MG TABLET PO SCH (09:12)
[2020-06-06] MEDS: ISOSORBIDE MONONITRATE 30 MG TABLET PO SCH (09:12)
[2020-06-06] MEDS: FERROUS SULFATE 325 MG TABLET PO SCH ×2 (09:12→20:32)
[2020-06-06] MEDS: TAMSULOSIN 0.4 MG CAPSULE PO SCH (09:12)
[2020-06-06] MEDS: PANTOPRAZOLE 40 MG VIAL IV SCH ×2 (09:13→20:34)
[2020-06-06] MEDS: FLUTICASONE 50 MCG NASAL SPRAY 16 GM BOTTLE BOTH NARES SCH (09:13)
[2020-06-06] MEDS: LISINOPRIL/HCTZ 10-12.5 MG TABLET PO SCH (09:33)
[2020-06-06] MEDS: OLOPATADINE 0.2% BOTH EYES SCH (10:48)
[2020-06-06] MEDS ORDERED: ACETAMINOPHEN 325 MG TABLET PO PRN (14:19)
[2020-06-06] MEDS ORDERED: traMADol 50 MG TABLET PO PRN (14:20)
[2020-06-06] MEDS ORDERED: POTASSIUM CHLORIDE 20 MEQ TABLET PO PRN (14:26)
[2020-06-06] MEDS ORDERED: KETOROLAC 15 MG/1 ML VIAL IV ONE ×2 (14:26→15:00)
[2020-06-06] MEDS: ATORVASTATIN 40 MG TABLET PO SCH (20:31)
[2020-06-06] MEDS: GABAPENTIN 300 MG CAPSULE PO SCH (20:31)
[2020-06-06] MEDS: CETIRIZINE 10 MG TABLET PO SCH (20:32)
[2020-06-07] MEDS: SODIUM CHLORIDE 0.45% 1,000 ML IV SCH ×3 (02:53→22:39)
[2020-06-07 05:06] LABS: Basophils % 0.5 % (0.0-0.8); Eosinophils # 0.2 10*3/uL (0.0-0.87); Eosinophils % 5.5 % (0.00-10.9); Hematocrit 28.2 VOL% (42.0-52.0); Hemoglobin 9.3 GM/DL (14.0-18.0); Immature Granulocytes % 0.2 %; Immature Granulocytes Absolute 0.01 #; Lymphocytes # 1.7 10*3/uL (1.4-4.0); Lymphocytes % 41.4 % (21.2-54.2); Mean Corpuscular Volume 87.9 FL (87-102); Mean Platelet Volume 11.6 FL (9.6-12.0); Monocytes % 12.2 % (1.7-12.7); Neutrophils % 40.2 % (38.7-73.9); Red Blood Count 3.21 MC/CUMM (3.8-5.5); Red Cell Distribution Width 15.8 % (9.3-17.3); White Blood Count 4.2 T/CUMM (4-12)
[2020-06-07 05:08] LABS: Platelet Count 94 T/CUMM (130-400)
[2020-06-07 05:17] LABS: Hypochromasia 1+; Microcytosis 1+; Ovalocytes Slight; Platelet Estimate Decreased
[2020-06-07 05:25] LABS: Calcium 8.9 MG/DL (8.5-10.1)
[2020-06-07] MEDS: LACTATED RINGERS 1,000 ML IV SCH ×2 (08:17→09:16)
[2020-06-07] MEDS: CHOLECALCIFEROL 1,000 UNIT TABLET PO SCH (08:58)
[2020-06-07] MEDS: MAGNESIUM CHLORIDE 64 MG TABLET PO SCH ×2 (08:59→12:04)
[2020-06-07] MEDS: TAMSULOSIN 0.4 MG CAPSULE PO SCH (08:59)
[2020-06-07] MEDS: LISINOPRIL/HCTZ 10-12.5 MG TABLET PO SCH (08:59)
[2020-06-07] MEDS: ASPIRIN EC 81 MG TABLET PO SCH (08:59)
[2020-06-07] MEDS: POTASSIUM CHLORIDE 20 MEQ TABLET PO SCH ×2 (08:59→20:43)
[2020-06-07] MEDS: FERROUS SULFATE 325 MG TABLET PO SCH ×2 (09:00→20:43)
[2020-06-07] MEDS: MULTIVITAMIN (CENTRUM) TABLET PO SCH (09:00)
[2020-06-07] MEDS: carvediloL 3.125 MG TABLET PO SCH ×2 (09:00→16:50)
[2020-06-07] MEDS: OLOPATADINE 0.2% BOTH EYES SCH (09:01)
[2020-06-07] MEDS: ISOSORBIDE MONONITRATE 30 MG TABLET PO SCH (09:02)
[2020-06-07] MEDS: MEGESTROL 40 MG TABLET PO SCH ×2 (09:02→16:51)
[2020-06-07] MEDS: FLUTICASONE 50 MCG NASAL SPRAY 16 GM BOTTLE BOTH NARES SCH (09:05)
[2020-06-07] MEDS: PANTOPRAZOLE 40 MG VIAL IV SCH ×2 (09:06→20:42)
[2020-06-07] MEDS: ATORVASTATIN 40 MG TABLET PO SCH (20:43)
[2020-06-07] MEDS: GABAPENTIN 300 MG CAPSULE PO SCH (20:43)
[2020-06-07] MEDS: CETIRIZINE 10 MG TABLET PO SCH (20:43)
[2020-06-08 05:38] LABS: Basophils % 0.4 % (0.0-0.8); Eosinophils # 0.3 10*3/uL (0.0-0.87); Eosinophils % 6.7 % (0.00-10.9); Hemoglobin 9.1 GM/DL (14.0-18.0); Immature Granulocytes % 0.2 %; Immature Granulocytes Absolute 0.01 #; Lymphocytes # 1.7 10*3/uL (1.4-4.0); Lymphocytes % 38.5 % (21.2-54.2); Mean Corpuscular HGB Conc 32.5 GM/DL (32-36); Mean Corpuscular Volume 88.9 FL (87-102); Mean Platelet Volume 11.4 FL (9.6-12.0); Neutrophils % 44.2 % (38.7-73.9); Platelet Count 101 T/CUMM (130-400); Red Blood Count 3.15 MC/CUMM (3.8-5.5); Red Cell Distribution Width 15.9 % (9.3-17.3); White Blood Count 4.5 T/CUMM (4-12)
[2020-06-08 06:06] LABS: Calcium 8.9 MG/DL (8.5-10.1)
[2020-06-08 06:30] LABS: Hypochromasia 1+; Microcytosis Slight; Ovalocytes Slight; Platelet Estimate Decreased
[2020-06-08] MEDS: SODIUM CHLORIDE 0.45% 1,000 ML IV SCH ×2 (08:16→14:17)
[2020-06-08] MEDS: ASPIRIN EC 81 MG TABLET PO SCH (09:26)
[2020-06-08] MEDS: ISOSORBIDE MONONITRATE 30 MG TABLET PO SCH (09:26)
[2020-06-08] MEDS: TAMSULOSIN 0.4 MG CAPSULE PO SCH (09:26)
[2020-06-08] MEDS: MAGNESIUM CHLORIDE 64 MG TABLET PO SCH ×2 (09:27→14:16)
[2020-06-08] MEDS: CHOLECALCIFEROL 1,000 UNIT TABLET PO SCH (09:28)
[2020-06-08] MEDS: LISINOPRIL/HCTZ 10-12.5 MG TABLET PO SCH (09:28)
[2020-06-08] MEDS: FERROUS SULFATE 325 MG TABLET PO SCH (09:29)
[2020-06-08] MEDS: MULTIVITAMIN (CENTRUM) TABLET PO SCH (09:29)
[2020-06-08] MEDS: carvediloL 3.125 MG TABLET PO SCH (09:29)
[2020-06-08] MEDS: POTASSIUM CHLORIDE 20 MEQ TABLET PO SCH (09:29)
[2020-06-08] MEDS: OLOPATADINE 0.2% BOTH EYES SCH (09:30)
[2020-06-08] MEDS: FLUTICASONE 50 MCG NASAL SPRAY 16 GM BOTTLE BOTH NARES SCH (09:30)
[2020-06-08] MEDS: PANTOPRAZOLE 40 MG VIAL IV SCH (09:31)
[2020-06-08] MEDS: MEGESTROL 40 MG TABLET PO SCH (10:10)
[2020-06-08] MEDS: LACTATED RINGERS 1,000 ML IV SCH (11:08)
[2020-06-08 12:15] VITALS: BP 138/68
== END 2020-06-08 14:10 | disposition home health service (06) ==
LOC: N.ED 10:24 → INTOOBSV 12:41 → N.EDINP 12:41 → N.TELES 15:42
PROVIDERS: ADMIT Internal Medicine; ATTEND Internal Medicine

== ENCOUNTER 2020-06-28 11:29 | Observation (INO) ==
[2020-06-28 12:51] LABS: Basophils % 0.4 % (0.0-0.8); Eosinophils # 0.3 10*3/uL (0.0-0.87); Eosinophils % 5.8 % (0.00-10.9); Hematocrit 30.8 VOL% (42.0-52.0); Hemoglobin 9.9 GM/DL (14.0-18.0); Immature Granulocytes % 0.4 %; Immature Granulocytes Absolute 0.02 #; Lymphocytes # 1.4 10*3/uL (1.4-4.0); Lymphocytes % 27.2 % (21.2-54.2); Mean Corpuscular HGB Conc 32.1 GM/DL (32-36); Mean Corpuscular Volume 88.8 FL (87-102); Mean Platelet Volume 11.2 FL (9.6-12.0); Monocytes % 10.7 % (1.7-12.7); Neutrophils % 55.5 % (38.7-73.9); Platelet Count 114 T/CUMM (130-400); Red Blood Count 3.47 MC/CUMM (3.8-5.5); Red Cell Distribution Width 15.9 % (9.3-17.3); White Blood Count 5.1 T/CUMM (4-12)
[2020-06-28 13:03] LABS: Calcium 9.9 MG/DL (8.5-10.1); Osmolality,Calculated 284.3 MOS/KG (273-304)
[2020-06-28 13:11] LABS: PT Patient Result 10.9 SECS (9.8-11.9); Partial Thromboplastin Time 22.4 SECS (23.9-33.8)
[2020-06-28] MEDS ORDERED: traMADol 50 MG TABLET PO PRN (16:13)
[2020-06-28] MEDS ORDERED: MECLIZINE 25 MG TABLET PO PRN (16:14)
[2020-06-28] MEDS: FERROUS SULFATE 325 MG TABLET PO SCH (17:40)
[2020-06-28] MEDS: MEGESTROL 40 MG TABLET PO SCH (17:40)
[2020-06-28] MEDS: carvediloL 3.125 MG TABLET PO SCH (17:40)
[2020-06-28] MEDS: GABAPENTIN 300 MG CAPSULE PO SCH (21:04)
[2020-06-28] MEDS: ATORVASTATIN 40 MG TABLET PO SCH (21:04)
[2020-06-29 05:45] LABS: Basophils % 0.4 % (0.0-0.8); Eosinophils # 0.3 10*3/uL (0.0-0.87); Eosinophils % 5.5 % (0.00-10.9); Hematocrit 27.7 VOL% (42.0-52.0); Hemoglobin 9.2 GM/DL (14.0-18.0); Immature Granulocytes % 0.4 %; Immature Granulocytes Absolute 0.02 #; Lymphocytes # 1.6 10*3/uL (1.4-4.0); Lymphocytes % 29.8 % (21.2-54.2); Mean Corpuscular HGB Conc 33.2 GM/DL (32-36); Mean Corpuscular Volume 87.7 FL (87-102); Mean Platelet Volume 10.4 FL (9.6-12.0); Monocytes % 10.7 % (1.7-12.7); Neutrophils % 53.2 % (38.7-73.9); Platelet Count 110 T/CUMM (130-400); Red Blood Count 3.16 MC/CUMM (3.8-5.5); Red Cell Distribution Width 15.2 % (9.3-17.3); White Blood Count 5.4 T/CUMM (4-12)
[2020-06-29 06:09] LABS: Albumin 2.7 G/DL (3.4-5.0); Bilirubin,Total 0.7 MG/DL (0.2-1.0); Calcium 9.9 MG/DL (8.5-10.1); Osmolality,Calculated 282.3 MOS/KG (273-304); Total Protein 7.4 G/DL (6.4-8.3)
[2020-06-29 06:27] LABS: PT Patient Result 11.1 SECS (9.8-11.9)
[2020-06-29 07:26] LABS: Hypochromasia 1+; Microcytosis 1+; Ovalocytes Few; Target Cells Slight
[2020-06-29 07:27] LABS: Platelet Estimate Decreased
[2020-06-29] MEDS ORDERED: DIAZEPAM 5 MG TABLET PO ONE (08:30)
[2020-06-29] MEDS: LISINOPRIL/HCTZ 10-12.5 MG TABLET PO SCH (10:32)
[2020-06-29] MEDS: carvediloL 3.125 MG TABLET PO SCH ×2 (10:32→16:07)
[2020-06-29] MEDS: ISOSORBIDE MONONITRATE 30 MG TABLET PO SCH (10:32)
[2020-06-29] MEDS: cloNIDine 0.1 MG TABLET PO SCH (10:32)
[2020-06-29] MEDS: DOXAZOSIN 4 MG TABLET PO SCH (10:32)
[2020-06-29] MEDS: TAMSULOSIN 0.4 MG CAPSULE PO SCH (10:32)
[2020-06-29] MEDS: FERROUS SULFATE 325 MG TABLET PO SCH ×2 (10:32→16:20)
[2020-06-29] MEDS: MEGESTROL 40 MG TABLET PO SCH ×2 (10:33→16:20)
[2020-06-29] MEDS: FLUTICASONE 50 MCG NASAL SPRAY 16 GM BOTTLE BOTH NARES SCH (10:33)
[2020-06-29] MEDS: ASPIRIN EC 81 MG TABLET PO SCH (10:33)
[2020-06-29] MEDS: ATORVASTATIN 40 MG TABLET PO SCH (20:16)
[2020-06-29] MEDS: GABAPENTIN 300 MG CAPSULE PO SCH (20:16)
[2020-06-30] MEDS: ISOSORBIDE MONONITRATE 30 MG TABLET PO SCH (08:22)
[2020-06-30] MEDS: DOXAZOSIN 4 MG TABLET PO SCH (08:23)
[2020-06-30] MEDS: MEGESTROL 40 MG TABLET PO SCH (08:23)
[2020-06-30] MEDS: cloNIDine 0.1 MG TABLET PO SCH (08:23)
[2020-06-30] MEDS: ASPIRIN EC 81 MG TABLET PO SCH (08:23)
[2020-06-30] MEDS: TAMSULOSIN 0.4 MG CAPSULE PO SCH (08:23)
[2020-06-30] MEDS: carvediloL 3.125 MG TABLET PO SCH (08:23)
[2020-06-30] MEDS: LISINOPRIL/HCTZ 10-12.5 MG TABLET PO SCH (08:23)
[2020-06-30] MEDS: FERROUS SULFATE 325 MG TABLET PO SCH (08:24)
[2020-06-30] MEDS: FLUTICASONE 50 MCG NASAL SPRAY 16 GM BOTTLE BOTH NARES SCH (08:25)
[2020-06-30 08:29] VITALS: BP 139/62
== END 2020-06-30 11:21 | disposition home or self-care (01) ==
LOC: N.ED 11:29 → INTOOBSV 14:00 → N.EDINP 14:00 → N.5E 15:00
PROVIDERS: ADMIT Family Medicine; ATTEND Family Medicine

== ENCOUNTER 2020-09-03 04:52 | Inpatient (IN) ==
[2020-09-03] MEDS ORDERED: PANTOPRAZOLE INJ 80 MG in SODIUM CHLORIDE 0.9% 100 ML IV STA (05:05)
[2020-09-03] MEDS ORDERED: PANTOPRAZOLE INJ 200 MG in SODIUM CHLORIDE 0.9% 250 ML IV SCH (05:30)
[2020-09-03 05:35] LABS: Basophils % 0.1 % (0.0-0.8); Eosinophils % 0.4 % (0.00-10.9); Hematocrit 29.9 VOL% (42.0-52.0); Hemoglobin 9.5 GM/DL (14.0-18.0); Immature Granulocytes % 0.5 %; Immature Granulocytes Absolute 0.04 #; Lymphocytes # 2.7 10*3/uL (1.4-4.0); Lymphocytes % 33.7 % (21.2-54.2); Mean Corpuscular HGB Conc 31.8 GM/DL (32-36); Mean Corpuscular Volume 88.2 FL (87-102); Mean Platelet Volume 11.2 FL (9.6-12.0); Monocytes % 5.7 % (1.7-12.7); Neutrophils % 59.6 % (38.7-73.9); Platelet Count 156 T/CUMM (130-400); Red Blood Count 3.39 MC/CUMM (3.8-5.5); Red Cell Distribution Width 16.5 % (9.3-17.3); White Blood Count 8.1 T/CUMM (4-12)
[2020-09-03 05:46] LABS: INR 1.2; PT Patient Result 12.4 SECS (9.8-11.9); Partial Thromboplastin Time 29.6 SECS (23.9-33.8)
[2020-09-03 05:58] LABS: Bilirubin,Total 0.4 MG/DL (0.2-1.0); Calcium 9.4 MG/DL (8.5-10.1); Osmolality,Calculated 289.1 MOS/KG (273-304); Potassium 3.9 MMOL/L (3.5-5.1); Total Protein 8.2 G/DL (6.4-8.3)
[2020-09-03] MEDS ORDERED: PANTOPRAZOLE 40 MG VIAL IV ONE (06:37)
[2020-09-03] MEDS: SODIUM CHLORIDE 0.9% 1,000 ML IV SCH (06:46)
[2020-09-03] MEDS: PANTOPRAZOLE INJ 200 MG in SODIUM CHLORIDE 0.9% 250 ML IV SCH (09:45)
[2020-09-03 09:58] LABS: Hematocrit 24.8 VOL% (42.0-52.0)
[2020-09-03] MEDS ORDERED: FUROSEMIDE 20 MG/2 ML VIAL IV ONE (11:13)
[2020-09-03] MEDS ORDERED: SODIUM CHLORIDE 0.9% 1,000 ML IV PRN (11:47)
[2020-09-03] MEDS ORDERED: POTASSIUM CHLORIDE 20 MEQ TABLET PO PRN (14:20)
[2020-09-03] MEDS: TAMSULOSIN 0.4 MG CAPSULE PO SCH (16:26)
[2020-09-03] MEDS: MEGESTROL 40 MG TABLET PO SCH (17:31)
[2020-09-03] MEDS: carvediloL 3.125 MG TABLET PO SCH (17:31)
[2020-09-03] MEDS: FERROUS SULFATE 325 MG TABLET PO SCH (17:31)
[2020-09-03] MEDS ORDERED: POLYETHYLENE GLYCOL POWDER 255 GM BOTTLE PO ONE (18:00)
[2020-09-03] MEDS: MAGNESIUM CHLORIDE 64 MG TABLET PO SCH (21:01)
[2020-09-03] MEDS: ATORVASTATIN 40 MG TABLET PO SCH (21:02)
[2020-09-03] MEDS: CETIRIZINE 10 MG TABLET PO SCH (21:02)
[2020-09-03 21:35] LABS: Hematocrit 25.4 VOL% (42.0-52.0); Hemoglobin 8.1 GM/DL (14.0-18.0)
[2020-09-04] MEDS: SODIUM CHLORIDE 0.9% 1,000 ML IV SCH (05:15)
[2020-09-04] MEDS ORDERED: MAGNESIUM CITRATE 300 ML BOTTLE PO ONE (06:00)
[2020-09-04 07:54] LABS: Basophils % 0.3 % (0.0-0.8); Eosinophils % 0.3 % (0.00-10.9); Hematocrit 28.2 VOL% (42.0-52.0); Hemoglobin 9.3 GM/DL (14.0-18.0); Immature Granulocytes % 0.6 %; Immature Granulocytes Absolute 0.04 #; Lymphocytes # 2.3 10*3/uL (1.4-4.0); Mean Corpuscular Volume 88.4 FL (87-102); Mean Platelet Volume 11.2 FL (9.6-12.0); Monocytes % 10.8 % (1.7-12.7); Red Blood Count 3.19 MC/CUMM (3.8-5.5); Red Cell Distribution Width 16.6 % (9.3-17.3); White Blood Count 6.6 T/CUMM (4-12)
[2020-09-04 07:59] LABS: Platelet Count 79 T/CUMM (130-400)
[2020-09-04 08:02] LABS: INR 1.1; PT Patient Result 11.4 SECS (9.8-11.9)
[2020-09-04 08:14] LABS: Calcium 8.1 MG/DL (8.5-10.1); Osmolality,Calculated 282.4 MOS/KG (273-304); Potassium 3.2 MMOL/L (3.5-5.1)
[2020-09-04 08:18] LABS: Albumin 2.5 G/DL (3.4-5.0); Bilirubin,Total 0.5 MG/DL (0.2-1.0); Calcium 8.1 MG/DL (8.5-10.1); Osmolality,Calculated 284.3 MOS/KG (273-304); Potassium 3.3 MMOL/L (3.5-5.1); Total Protein 6.5 G/DL (6.4-8.3)
[2020-09-04 08:35] LABS: Hypochromasia Slight; Ovalocytes Slight; Platelet Estimate Decreased
[2020-09-04] MEDS: CHOLECALCIFEROL 1,000 UNIT TABLET PO SCH (09:54)
[2020-09-04] MEDS: POTASSIUM CHLORIDE 20 MEQ TABLET PO SCH (09:55)
[2020-09-04] MEDS: MAGNESIUM CHLORIDE 64 MG TABLET PO SCH ×2 (09:55→21:45)
[2020-09-04] MEDS: carvediloL 3.125 MG TABLET PO SCH ×2 (09:55→17:38)
[2020-09-04] MEDS: ISOSORBIDE MONONITRATE 30 MG TABLET PO SCH (09:55)
[2020-09-04] MEDS: TAMSULOSIN 0.4 MG CAPSULE PO SCH (09:55)
[2020-09-04] MEDS: FLUTICASONE 50 MCG NASAL SPRAY 16 GM BOTTLE BOTH NARES SCH (09:56)
[2020-09-04] MEDS: LACTATED RINGERS 1,000 ML IV SCH (11:50)
[2020-09-04] MEDS ORDERED: propofoL 200 MG/20 ML VIAL IV ONE (13:13)
[2020-09-04] MEDS ORDERED: LIDOCAINE 2% 5 ML VIAL ONE (13:13)
[2020-09-04] MEDS ORDERED: PHENYLEPHRINE 1 MG/10 ML SYRINGE IV ONE (13:38)
[2020-09-04] MEDS ORDERED: MORPHINE 4 MG/1 ML VIAL IV PRN (15:17)
[2020-09-04] MEDS: MEGESTROL 40 MG TABLET PO SCH ×2 (15:50→17:56)
[2020-09-04] MEDS: FERROUS SULFATE 325 MG TABLET PO SCH ×2 (15:50→17:56)
[2020-09-04] MEDS: PANTOPRAZOLE INJ 200 MG in SODIUM CHLORIDE 0.9% 250 ML IV SCH (19:24)
[2020-09-04] MEDS: CETIRIZINE 10 MG TABLET PO SCH (21:45)
[2020-09-04] MEDS: ATORVASTATIN 40 MG TABLET PO SCH (21:45)
[2020-09-05] MEDS: ONDANSETRON 4 MG/2 ML VIAL IV PRN (00:19)
[2020-09-05] MEDS: traMADol 50 MG TABLET PO PRN ×2 (00:19→09:35)
[2020-09-05] MEDS: SODIUM CHLORIDE 0.9% 1,000 ML IV SCH (04:32)
[2020-09-05 06:48] LABS: Albumin 2.1 G/DL (3.4-5.0); Bilirubin,Total 0.6 MG/DL (0.2-1.0); Calcium 7.5 MG/DL (8.5-10.1); Osmolality,Calculated 286.8 MOS/KG (273-304); Potassium 3.4 MMOL/L (3.5-5.1); Total Protein 5.3 G/DL (6.4-8.3)
[2020-09-05 07:21] LABS: Basophils % 0.2 % (0.0-0.8); Eosinophils # 0.1 10*3/uL (0.0-0.87); Eosinophils % 1.8 % (0.00-10.9); Hematocrit 20.3 VOL% (42.0-52.0); Immature Granulocytes % 0.6 %; Immature Granulocytes Absolute 0.03 #; Lymphocytes # 1.6 10*3/uL (1.4-4.0); Mean Corpuscular HGB Conc 32.5 GM/DL (32-36); Mean Corpuscular Volume 87.9 FL (87-102); Mean Platelet Volume 11.2 FL (9.6-12.0); Monocytes % 11.2 % (1.7-12.7); NRBC # 0.02 10*3/uL; Neutrophils % 54.2 % (38.7-73.9); Red Cell Distribution Width 16.8 % (9.3-17.3)
[2020-09-05 07:23] LABS: Hemoglobin 6.6 GM/DL (14.0-18.0); Red Blood Count 2.31 MC/CUMM (3.8-5.5)
[2020-09-05 07:24] LABS: Platelet Count 70 T/CUMM (130-400)
[2020-09-05 07:38] LABS: Hypochromasia 2+; Microcytosis 1+; Platelet Estimate Decreased
[2020-09-05] MEDS ORDERED: SODIUM CHLORIDE 0.9% 1,000 ML IV PRN (08:29)
[2020-09-05] MEDS: carvediloL 3.125 MG TABLET PO SCH ×2 (09:30→19:00)
[2020-09-05] MEDS: TAMSULOSIN 0.4 MG CAPSULE PO SCH (09:30)
[2020-09-05] MEDS: POTASSIUM CHLORIDE 20 MEQ TABLET PO SCH (09:30)
[2020-09-05] MEDS: ISOSORBIDE MONONITRATE 30 MG TABLET PO SCH (09:30)
[2020-09-05] MEDS: MEGESTROL 40 MG TABLET PO SCH ×2 (09:31→18:20)
[2020-09-05] MEDS: CHOLECALCIFEROL 1,000 UNIT TABLET PO SCH (09:31)
[2020-09-05] MEDS: MAGNESIUM CHLORIDE 64 MG TABLET PO SCH ×2 (09:35→20:43)
[2020-09-05] MEDS: FERROUS SULFATE 325 MG TABLET PO SCH ×2 (09:35→18:20)
[2020-09-05] MEDS: FLUTICASONE 50 MCG NASAL SPRAY 16 GM BOTTLE BOTH NARES SCH (09:36)
[2020-09-05] MEDS: PANTOPRAZOLE INJ 200 MG in SODIUM CHLORIDE 0.9% 250 ML IV SCH (15:29)
[2020-09-05] MEDS: LACTATED RINGERS 1,000 ML IV SCH (15:30)
[2020-09-05] MEDS: ATORVASTATIN 40 MG TABLET PO SCH (20:43)
[2020-09-05] MEDS: CETIRIZINE 10 MG TABLET PO SCH (20:43)
[2020-09-05 22:37] LABS: Hematocrit 25.1 VOL% (42.0-52.0)
[2020-09-05 22:39] LABS: Hemoglobin 8.3 GM/DL (14.0-18.0)
[2020-09-06] MEDS: traMADol 50 MG TABLET PO PRN ×2 (06:08→20:53)
[2020-09-06 06:24] LABS: Basophils % 0.2 % (0.0-0.8); Eosinophils # 0.1 10*3/uL (0.0-0.87); Eosinophils % 1.8 % (0.00-10.9); Hematocrit 23.1 VOL% (42.0-52.0); Hemoglobin 7.8 GM/DL (14.0-18.0); Immature Granulocytes % 0.7 %; Immature Granulocytes Absolute 0.04 #; Lymphocytes # 1.7 10*3/uL (1.4-4.0); Lymphocytes % 31.1 % (21.2-54.2); Mean Corpuscular HGB Conc 33.8 GM/DL (32-36); Mean Corpuscular Volume 86.5 FL (87-102); Mean Platelet Volume 11.3 FL (9.6-12.0); Monocytes % 9.9 % (1.7-12.7); NRBC # 0.02 10*3/uL; Neutrophils % 56.3 % (38.7-73.9); Red Blood Count 2.67 MC/CUMM (3.8-5.5); White Blood Count 5.5 T/CUMM (4-12)
[2020-09-06 06:27] LABS: Platelet Count 64 T/CUMM (130-400)
[2020-09-06 06:33] LABS: Calcium 7.4 MG/DL (8.5-10.1); Osmolality,Calculated 283.1 MOS/KG (273-304); Potassium 3.5 MMOL/L (3.5-5.1)
[2020-09-06 06:46] LABS: Hypochromasia 1+; Microcytosis 1+; Ovalocytes Slight; Platelet Estimate Decreased
[2020-09-06] MEDS: SODIUM CHLORIDE 0.9% 1,000 ML IV SCH ×2 (09:33→21:52)
[2020-09-06] MEDS: TAMSULOSIN 0.4 MG CAPSULE PO SCH (09:34)
[2020-09-06] MEDS: MAGNESIUM CHLORIDE 64 MG TABLET PO SCH ×2 (09:34→20:50)
[2020-09-06] MEDS: cloNIDine 0.1 MG TABLET PO SCH (09:34)
[2020-09-06] MEDS: CHOLECALCIFEROL 1,000 UNIT TABLET PO SCH (09:34)
[2020-09-06] MEDS: carvediloL 3.125 MG TABLET PO SCH (09:34)
[2020-09-06] MEDS: ISOSORBIDE MONONITRATE 30 MG TABLET PO SCH (09:35)
[2020-09-06] MEDS: MEGESTROL 40 MG TABLET PO SCH ×2 (09:35→16:59)
[2020-09-06] MEDS: POTASSIUM CHLORIDE 20 MEQ TABLET PO SCH (09:35)
[2020-09-06] MEDS: FERROUS SULFATE 325 MG TABLET PO SCH ×2 (09:35→16:59)
[2020-09-06] MEDS: LACTATED RINGERS 1,000 ML IV SCH (10:33)
[2020-09-06] MEDS: FLUTICASONE 50 MCG NASAL SPRAY 16 GM BOTTLE BOTH NARES SCH (10:34)
[2020-09-06] MEDS: ONDANSETRON 4 MG/2 ML VIAL IV PRN (11:57)
[2020-09-06] MEDS: PANTOPRAZOLE INJ 200 MG in SODIUM CHLORIDE 0.9% 250 ML IV SCH (16:58)
[2020-09-06] MEDS: CETIRIZINE 10 MG TABLET PO SCH (20:50)
[2020-09-06] MEDS: ATORVASTATIN 40 MG TABLET PO SCH (20:50)
[2020-09-07 05:46] LABS: Basophils % 0.2 % (0.0-0.8); Eosinophils # 0.1 10*3/uL (0.0-0.87); Eosinophils % 2.1 % (0.00-10.9); Hematocrit 21.2 VOL% (42.0-52.0); Hemoglobin 7.1 GM/DL (14.0-18.0); Immature Granulocytes % 0.4 %; Immature Granulocytes Absolute 0.02 #; Lymphocytes # 1.5 10*3/uL (1.4-4.0); Mean Corpuscular HGB Conc 33.5 GM/DL (32-36); Mean Platelet Volume 10.9 FL (9.6-12.0); Monocytes % 10.3 % (1.7-12.7); Red Blood Count 2.41 MC/CUMM (3.8-5.5); Red Cell Distribution Width 16.8 % (9.3-17.3); White Blood Count 4.7 T/CUMM (4-12)
[2020-09-07 05:48] LABS: Platelet Count 62 T/CUMM (130-400)
[2020-09-07 06:15] LABS: Calcium 7.7 MG/DL (8.5-10.1); Osmolality,Calculated 282.1 MOS/KG (273-304); Potassium 3.5 MMOL/L (3.5-5.1)
[2020-09-07 08:14] LABS: Anisocytosis 1+; Hypochromasia 1+; Microcytosis 1+; Ovalocytes Slight; Platelet Estimate Decreased
[2020-09-07] MEDS: traMADol 50 MG TABLET PO PRN ×2 (09:06→23:22)
[2020-09-07] MEDS: carvediloL 3.125 MG TABLET PO SCH (09:06)
[2020-09-07] MEDS: TAMSULOSIN 0.4 MG CAPSULE PO SCH (09:06)
[2020-09-07] MEDS: FERROUS SULFATE 325 MG TABLET PO SCH ×2 (09:06→17:40)
[2020-09-07] MEDS: ISOSORBIDE MONONITRATE 30 MG TABLET PO SCH (09:06)
[2020-09-07] MEDS: MEGESTROL 40 MG TABLET PO SCH ×2 (09:06→17:41)
[2020-09-07] MEDS: cloNIDine 0.1 MG TABLET PO SCH (09:07)
[2020-09-07] MEDS: CHOLECALCIFEROL 1,000 UNIT TABLET PO SCH (09:07)
[2020-09-07] MEDS: MAGNESIUM CHLORIDE 64 MG TABLET PO SCH ×2 (09:08→21:25)
[2020-09-07] MEDS: POTASSIUM CHLORIDE 20 MEQ TABLET PO SCH (09:08)
[2020-09-07] MEDS: LACTATED RINGERS 1,000 ML IV SCH (09:09)
[2020-09-07] MEDS: FLUTICASONE 50 MCG NASAL SPRAY 16 GM BOTTLE BOTH NARES SCH (09:09)
[2020-09-07] MEDS: ACETAMINOPHEN 325 MG TABLET PO PRN (13:20)
[2020-09-07] MEDS: PANTOPRAZOLE INJ 200 MG in SODIUM CHLORIDE 0.9% 250 ML IV SCH (17:41)
[2020-09-07 20:38] LABS: Hematocrit 25.9 VOL% (42.0-52.0)
[2020-09-07 20:39] LABS: Hemoglobin 8.5 GM/DL (14.0-18.0)
[2020-09-07] MEDS: ATORVASTATIN 40 MG TABLET PO SCH (21:25)
[2020-09-07] MEDS: CETIRIZINE 10 MG TABLET PO SCH (21:25)
[2020-09-08] MEDS: SODIUM CHLORIDE 0.9% 1,000 ML IV SCH ×2 (01:23→14:22)
[2020-09-08] MEDS: ACETAMINOPHEN 325 MG TABLET PO PRN ×2 (01:25→08:46)
[2020-09-08 07:33] LABS: Basophils % 0.2 % (0.0-0.8); Eosinophils # 0.1 10*3/uL (0.0-0.87); Eosinophils % 2.8 % (0.00-10.9); Hematocrit 26.1 VOL% (42.0-52.0); Hemoglobin 8.9 GM/DL (14.0-18.0); Immature Granulocytes % 0.5 %; Immature Granulocytes Absolute 0.02 #; Lymphocytes # 1.4 10*3/uL (1.4-4.0); Lymphocytes % 31.6 % (21.2-54.2); Mean Corpuscular HGB Conc 34.1 GM/DL (32-36); Mean Corpuscular Volume 85.9 FL (87-102); Monocytes % 9.7 % (1.7-12.7); Neutrophils % 55.2 % (38.7-73.9); Platelet Count 75 T/CUMM (130-400); Red Blood Count 3.04 MC/CUMM (3.8-5.5); Red Cell Distribution Width 16.9 % (9.3-17.3); White Blood Count 4.3 T/CUMM (4-12)
[2020-09-08 08:11] LABS: Calcium 7.6 MG/DL (8.5-10.1); Potassium 3.1 MMOL/L (3.5-5.1)
[2020-09-08] MEDS: CHOLECALCIFEROL 1,000 UNIT TABLET PO SCH (08:45)
[2020-09-08] MEDS: cloNIDine 0.1 MG TABLET PO SCH (08:46)
[2020-09-08] MEDS: TAMSULOSIN 0.4 MG CAPSULE PO SCH (08:46)
[2020-09-08] MEDS: MAGNESIUM CHLORIDE 64 MG TABLET PO SCH ×2 (08:46→21:23)
[2020-09-08] MEDS: POTASSIUM CHLORIDE 20 MEQ TABLET PO SCH (08:46)
[2020-09-08] MEDS: FERROUS SULFATE 325 MG TABLET PO SCH ×2 (08:46→17:33)
[2020-09-08] MEDS: MEGESTROL 40 MG TABLET PO SCH ×2 (08:47→17:33)
[2020-09-08] MEDS: ISOSORBIDE MONONITRATE 30 MG TABLET PO SCH (08:47)
[2020-09-08] MEDS: carvediloL 3.125 MG TABLET PO SCH (08:47)
[2020-09-08] MEDS: LACTATED RINGERS 1,000 ML IV SCH (11:55)
[2020-09-08] MEDS: FLUTICASONE 50 MCG NASAL SPRAY 16 GM BOTTLE BOTH NARES SCH (11:56)
[2020-09-08] MEDS: POTASSIUM CHLORIDE RIDER 10 MEQ in PREMIX 1 EACH IV SCH ×3 (16:04→18:34)
[2020-09-08] MEDS: traMADol 50 MG TABLET PO PRN (21:23)
[2020-09-08] MEDS: CETIRIZINE 10 MG TABLET PO SCH (21:23)
[2020-09-08] MEDS: ATORVASTATIN 40 MG TABLET PO SCH (21:23)
[2020-09-08] MEDS: PANTOPRAZOLE 40 MG VIAL IV SCH (21:52)
[2020-09-09] MEDS: SODIUM CHLORIDE 0.9% 1,000 ML IV SCH ×3 (03:47→06:33)
[2020-09-09 05:48] LABS: Basophils % 0.2 % (0.0-0.8); Eosinophils # 0.2 10*3/uL (0.0-0.87); Eosinophils % 2.9 % (0.00-10.9); Hematocrit 28.6 VOL% (42.0-52.0); Hemoglobin 9.3 GM/DL (14.0-18.0); Immature Granulocytes % 0.4 %; Immature Granulocytes Absolute 0.02 #; Lymphocytes # 1.3 10*3/uL (1.4-4.0); Lymphocytes % 25.2 % (21.2-54.2); Mean Corpuscular HGB Conc 32.5 GM/DL (32-36); Mean Corpuscular Volume 89.1 FL (87-102); Mean Platelet Volume 10.8 FL (9.6-12.0); Monocytes % 9.2 % (1.7-12.7); Neutrophils % 62.1 % (38.7-73.9); Red Blood Count 3.21 MC/CUMM (3.8-5.5); Red Cell Distribution Width 17.2 % (9.3-17.3); White Blood Count 5.2 T/CUMM (4-12)
[2020-09-09 06:00] LABS: Platelet Count 90 T/CUMM (130-400)
[2020-09-09 06:09] LABS: Calcium 7.8 MG/DL (8.5-10.1); Osmolality,Calculated 285.7 MOS/KG (273-304); Potassium 3.9 MMOL/L (3.5-5.1)
[2020-09-09 06:56] LABS: Folate 12.9 NG/ML (5.4-24.0)
[2020-09-09 07:14] LABS: Anisocytosis Slight; Hypochromasia Slight; Ovalocytes Few; Platelet Estimate Adequate; Polychromasia Slight
[2020-09-09] MEDS: FERROUS SULFATE 325 MG TABLET PO SCH ×2 (08:54→17:10)
[2020-09-09] MEDS: cloNIDine 0.1 MG TABLET PO SCH (08:55)
[2020-09-09] MEDS: MAGNESIUM CHLORIDE 64 MG TABLET PO SCH ×2 (08:55→20:34)
[2020-09-09] MEDS: TAMSULOSIN 0.4 MG CAPSULE PO SCH (08:55)
[2020-09-09] MEDS: traMADol 50 MG TABLET PO PRN (08:56)
[2020-09-09] MEDS: carvediloL 3.125 MG TABLET PO SCH (08:56)
[2020-09-09] MEDS: CHOLECALCIFEROL 1,000 UNIT TABLET PO SCH (08:56)
[2020-09-09] MEDS: POTASSIUM CHLORIDE 20 MEQ TABLET PO SCH (08:56)
[2020-09-09] MEDS: MEGESTROL 40 MG TABLET PO SCH ×2 (08:57→17:10)
[2020-09-09] MEDS: ISOSORBIDE MONONITRATE 30 MG TABLET PO SCH (08:57)
[2020-09-09] MEDS: LACTATED RINGERS 1,000 ML IV SCH (09:13)
[2020-09-09] MEDS: FLUTICASONE 50 MCG NASAL SPRAY 16 GM BOTTLE BOTH NARES SCH (09:14)
[2020-09-09] MEDS: PANTOPRAZOLE 40 MG VIAL IV SCH ×2 (09:26→20:35)
[2020-09-09] MEDS: CETIRIZINE 10 MG TABLET PO SCH (20:34)
[2020-09-09] MEDS: ATORVASTATIN 40 MG TABLET PO SCH (20:34)
[2020-09-10 06:25] LABS: Basophils % 0.4 % (0.0-0.8); Eosinophils # 0.1 10*3/uL (0.0-0.87); Eosinophils % 2.5 % (0.00-10.9); Hematocrit 27.6 VOL% (42.0-52.0); Hemoglobin 9.3 GM/DL (14.0-18.0); Immature Granulocytes % 0.4 %; Immature Granulocytes Absolute 0.02 #; Lymphocytes # 1.2 10*3/uL (1.4-4.0); Mean Corpuscular HGB Conc 33.7 GM/DL (32-36); Mean Corpuscular Volume 87.9 FL (87-102); Mean Platelet Volume 11.5 FL (9.6-12.0); Monocytes % 10.1 % (1.7-12.7); Neutrophils % 63.6 % (38.7-73.9); Platelet Count 78 T/CUMM (130-400); Red Blood Count 3.14 MC/CUMM (3.8-5.5); Red Cell Distribution Width 17.5 % (9.3-17.3); White Blood Count 5.1 T/CUMM (4-12)
[2020-09-10 06:36] LABS: Calcium 8.4 MG/DL (8.5-10.1); Potassium 3.2 MMOL/L (3.5-5.1)
[2020-09-10 07:02] LABS: Hypochromasia 1+; Microcytosis 1+; Polychromasia Slight
[2020-09-10 07:03] LABS: Anisocytosis 1+; Ovalocytes Slight; Platelet Estimate Decreased; Target Cells Slight
[2020-09-10] MEDS: CHOLECALCIFEROL 1,000 UNIT TABLET PO SCH (08:59)
[2020-09-10] MEDS: PANTOPRAZOLE 40 MG VIAL IV SCH ×2 (08:59→21:10)
[2020-09-10] MEDS: ISOSORBIDE MONONITRATE 30 MG TABLET PO SCH (08:59)
[2020-09-10] MEDS: POTASSIUM CHLORIDE 20 MEQ TABLET PO SCH (09:00)
[2020-09-10] MEDS: cloNIDine 0.1 MG TABLET PO SCH (09:00)
[2020-09-10] MEDS: carvediloL 3.125 MG TABLET PO SCH (09:00)
[2020-09-10] MEDS: FERROUS SULFATE 325 MG TABLET PO SCH ×2 (09:00→16:34)
[2020-09-10] MEDS: traMADol 50 MG TABLET PO PRN (09:00)
[2020-09-10] MEDS: MAGNESIUM CHLORIDE 64 MG TABLET PO SCH ×2 (09:00→21:04)
[2020-09-10] MEDS: MEGESTROL 40 MG TABLET PO SCH ×2 (09:00→16:34)
[2020-09-10] MEDS: TAMSULOSIN 0.4 MG CAPSULE PO SCH (09:00)
[2020-09-10] MEDS: FLUTICASONE 50 MCG NASAL SPRAY 16 GM BOTTLE BOTH NARES SCH (10:56)
[2020-09-10] MEDS ORDERED: POLYETHYLENE GLYCOL POWDER 17 GM PACK PO PRN (14:02)
[2020-09-10] MEDS: methylPREDNISolone SOD SUC 40 MG/1 ML VIAL IV SCH (16:34)
[2020-09-10] MEDS: LACTATED RINGERS 1,000 ML IV SCH (18:44)
[2020-09-10] MEDS: ATORVASTATIN 40 MG TABLET PO SCH (21:04)
[2020-09-10] MEDS: CETIRIZINE 10 MG TABLET PO SCH (21:04)
[2020-09-11] MEDS: methylPREDNISolone SOD SUC 40 MG/1 ML VIAL IV SCH ×2 (00:59→08:40)
[2020-09-11] MEDS: traMADol 50 MG TABLET PO PRN (06:10)
[2020-09-11] MEDS: POTASSIUM CHLORIDE 20 MEQ TABLET PO SCH (08:39)
[2020-09-11] MEDS: TAMSULOSIN 0.4 MG CAPSULE PO SCH (08:39)
[2020-09-11] MEDS: ISOSORBIDE MONONITRATE 30 MG TABLET PO SCH (08:39)
[2020-09-11] MEDS: carvediloL 3.125 MG TABLET PO SCH (08:39)
[2020-09-11] MEDS: MAGNESIUM CHLORIDE 64 MG TABLET PO SCH (08:39)
[2020-09-11] MEDS: FERROUS SULFATE 325 MG TABLET PO SCH (08:39)
[2020-09-11] MEDS: cloNIDine 0.1 MG TABLET PO SCH (08:39)
[2020-09-11] MEDS: CHOLECALCIFEROL 1,000 UNIT TABLET PO SCH (08:39)
[2020-09-11] MEDS: MEGESTROL 40 MG TABLET PO SCH (08:40)
[2020-09-11] MEDS: FLUTICASONE 50 MCG NASAL SPRAY 16 GM BOTTLE BOTH NARES SCH (08:41)
[2020-09-11] MEDS: PANTOPRAZOLE 40 MG VIAL IV SCH (08:41)
[2020-09-11 17:53] VITALS: BP 135/56
== END 2020-09-11 17:35 | DRG 813 ==
LOC: N.ED 04:52 → N.EDINP 04:52 → N.3E 11:58
PROVIDERS: ADMIT Internal Medicine; ATTEND Internal Medicine

== ENCOUNTER 2020-09-17 17:05 | Inpatient (IN) ==
[2020-09-17] MEDS ORDERED: ASPIRIN 325 MG TABLET PO STA (17:35)
[2020-09-17 17:51] LABS: Basophils % 0.4 % (0.0-0.8); Eosinophils # 0.1 10*3/uL (0.0-0.87); Eosinophils % 1.4 % (0.00-10.9); Hematocrit 34.3 VOL% (42.0-52.0); Hemoglobin 11.1 GM/DL (14.0-18.0); Immature Granulocytes % 0.4 %; Immature Granulocytes Absolute 0.02 #; Lymphocytes # 1.5 10*3/uL (1.4-4.0); Lymphocytes % 25.9 % (21.2-54.2); Mean Corpuscular HGB Conc 32.4 GM/DL (32-36); Mean Platelet Volume 11.2 FL (9.6-12.0); Monocytes % 9.5 % (1.7-12.7); Neutrophils % 62.4 % (38.7-73.9); Platelet Count 106 T/CUMM (130-400); Red Blood Count 3.81 MC/CUMM (3.8-5.5); Red Cell Distribution Width 16.7 % (9.3-17.3); White Blood Count 5.7 T/CUMM (4-12)
[2020-09-17 17:54] LABS: Calcium 9.8 MG/DL (8.5-10.1); Osmolality,Calculated 270.2 MOS/KG (273-304)
[2020-09-17 18:06] LABS: INR 1.1; PT Patient Result 11.3 SECS (9.8-11.9); Partial Thromboplastin Time 26.5 SECS (23.9-33.8)
[2020-09-17] MEDS ORDERED: MAGNESIUM SULF RIDER 4 GM in PREMIX 1 EACH IV PRN (18:10)
[2020-09-17] MEDS ORDERED: POTASSIUM CHLORIDE 20 MEQ TABLET PO PRN (18:10)
[2020-09-17] MEDS ORDERED: ONDANSETRON 4 MG/2 ML VIAL IV PRN (18:10)
[2020-09-17] MEDS ORDERED: MAGNESIUM SULF RIDER 2 GM in PREMIX 1 EACH IV PRN (18:10)
[2020-09-17] MEDS: MAGNESIUM CHLORIDE 64 MG TABLET PO SCH (21:51)
[2020-09-17] MEDS: ATORVASTATIN 40 MG TABLET PO SCH (21:51)
[2020-09-17] MEDS: SODIUM CHLORIDE 0.45% 1,000 ML IV SCH (22:24)
[2020-09-18] MEDS: MORPHINE 4 MG/1 ML VIAL IV PRN ×3 (00:17→13:53)
[2020-09-18 04:02] LABS: Albumin 2.7 G/DL (3.4-5.0); Bilirubin,Total 0.4 MG/DL (0.2-1.0); Calcium 9.2 MG/DL (8.5-10.1); Osmolality,Calculated 278.5 MOS/KG (273-304); Total Protein 6.8 G/DL (6.4-8.3)
[2020-09-18] MEDS: MULTIVITAMIN (CENTRUM) TABLET PO SCH (08:24)
[2020-09-18] MEDS: PANTOPRAZOLE 40 MG TABLET PO SCH (08:24)
[2020-09-18] MEDS: MAGNESIUM CHLORIDE 64 MG TABLET PO SCH ×2 (08:24→21:39)
[2020-09-18] MEDS: CHOLECALCIFEROL 1,000 UNIT TABLET PO SCH (08:24)
[2020-09-18] MEDS: MEGESTROL 40 MG TABLET PO SCH ×2 (08:24→17:14)
[2020-09-18] MEDS: ASPIRIN EC 81 MG TABLET PO SCH ×2 (08:24→17:14)
[2020-09-18] MEDS: NON-FORMULARY MEDICATION (Enzalutamide [Xtandi] 40 mg Capsule) PO SCH (08:25)
[2020-09-18] MEDS: SODIUM CHLORIDE 0.45% 1,000 ML IV SCH ×2 (08:35→23:23)
[2020-09-18] MEDS ORDERED: carvediloL 3.125 MG TABLET PO SCH (09:00)
[2020-09-18] MEDS ORDERED: ISOSORBIDE MONONITRATE 30 MG TABLET PO SCH (09:00)
[2020-09-18] MEDS ORDERED: ENOXAPARIN 80 MG/0.8 ML SYRINGE SUBCUT SCH (10:30)
[2020-09-18] MEDS: cloNIDine 0.1 MG TABLET PO SCH (10:33)
[2020-09-18] MEDS: traMADol 50 MG TABLET PO SCH ×3 (12:02→21:39)
[2020-09-18] MEDS: FERROUS SULFATE 325 MG TABLET PO SCH (17:14)
[2020-09-18] MEDS: ATORVASTATIN 40 MG TABLET PO SCH (21:39)
[2020-09-18] MEDS: carvediloL 6.25 MG TABLET PO SCH (21:39)
[2020-09-19] MEDS: MORPHINE 4 MG/1 ML VIAL IV PRN ×2 (01:45→07:33)
[2020-09-19] MEDS: SODIUM CHLORIDE 0.45% 1,000 ML IV SCH ×2 (04:06→15:03)
[2020-09-19 05:59] LABS: Basophils % 0.2 % (0.0-0.8); Eosinophils # 0.2 10*3/uL (0.0-0.87); Eosinophils % 3.8 % (0.00-10.9); Hematocrit 30.1 VOL% (42.0-52.0); Hemoglobin 9.7 GM/DL (14.0-18.0); Immature Granulocytes % 0.2 %; Immature Granulocytes Absolute 0.01 #; Lymphocytes # 1.5 10*3/uL (1.4-4.0); Lymphocytes % 32.4 % (21.2-54.2); Mean Corpuscular HGB Conc 32.2 GM/DL (32-36); Mean Corpuscular Volume 90.4 FL (87-102); Monocytes % 13.1 % (1.7-12.7); Neutrophils % 50.3 % (38.7-73.9); Red Blood Count 3.33 MC/CUMM (3.8-5.5); Red Cell Distribution Width 15.9 % (9.3-17.3); White Blood Count 4.8 T/CUMM (4-12)
[2020-09-19 06:07] LABS: Calcium 8.9 MG/DL (8.5-10.1); Osmolality,Calculated 269.2 MOS/KG (273-304)
[2020-09-19 06:29] LABS: Platelet Count 78 T/CUMM (130-400)
[2020-09-19 06:36] LABS: Hypochromasia 1+; Microcytosis 1+; Ovalocytes Slight; Platelet Estimate Decreased
[2020-09-19] MEDS: NITROGLYCERIN SL 0.4 MG TABLET SL PRN ×2 (07:18→07:59)
[2020-09-19] MEDS ORDERED: diphenhydrAMINE CAP 25 MG CAPSULE ONE (09:14)
[2020-09-19] MEDS ORDERED: DIAZEPAM 5 MG TABLET ONE (09:15)
[2020-09-19] MEDS: MULTIVITAMIN (CENTRUM) TABLET PO SCH (09:21)
[2020-09-19] MEDS: ASPIRIN EC 81 MG TABLET PO SCH ×2 (09:21→17:48)
[2020-09-19] MEDS: PANTOPRAZOLE 40 MG TABLET PO SCH (09:21)
[2020-09-19] MEDS: carvediloL 6.25 MG TABLET PO SCH ×2 (09:21→21:33)
[2020-09-19] MEDS: ISOSORBIDE MONONITRATE 30 MG TABLET PO SCH (09:21)
[2020-09-19] MEDS: cloNIDine 0.1 MG TABLET PO SCH (09:21)
[2020-09-19] MEDS: FERROUS SULFATE 325 MG TABLET PO SCH ×2 (09:30→17:48)
[2020-09-19] MEDS: MAGNESIUM CHLORIDE 64 MG TABLET PO SCH ×2 (09:33→21:33)
[2020-09-19] MEDS: MEGESTROL 40 MG TABLET PO SCH ×2 (09:33→17:48)
[2020-09-19] MEDS: NON-FORMULARY MEDICATION (Enzalutamide [Xtandi] 40 mg Capsule) PO SCH (09:33)
[2020-09-19] MEDS: traMADol 50 MG TABLET PO SCH ×4 (09:33→21:33)
[2020-09-19] MEDS: CHOLECALCIFEROL 1,000 UNIT TABLET PO SCH (09:33)
[2020-09-19] MEDS ORDERED: HYDROmorphone 2 MG/1 ML VIAL ONE (09:54)
[2020-09-19] MEDS ORDERED: MIDAZOLAM 2 MG/2 ML VIAL ONE (09:54)
[2020-09-19] MEDS ORDERED: LIDOCAINE 1% 20 ML VIAL ONE (09:56)
[2020-09-19] MEDS ORDERED: ENOXAPARIN 80 MG/0.8 ML SYRINGE SUBCUT SCH (10:30)
[2020-09-19] MEDS ORDERED: diphenhydrAMINE CAP 25 MG CAPSULE PO ONE (10:30)
[2020-09-19] MEDS ORDERED: DIAZEPAM 5 MG TABLET PO ONE (10:30)
[2020-09-19] MEDS ORDERED: ENOXAPARIN 30 MG/0.3 ML SYRINGE ONE (10:48)
[2020-09-19] MEDS ORDERED: ALTEPLASE 2 MG VIAL ONE ×2 (11:02→11:23)
[2020-09-19] MEDS ORDERED: NITROGLYCERIN DRIP 50 MG/250 ML BOTTLE IV ONE (11:59)
[2020-09-19 13:18] LABS: Troponin I 0.629 NG/ML (0.00-0.045)
[2020-09-19 15:45] LABS: Troponin I 0.815 NG/ML (0.00-0.045)
[2020-09-19] MEDS: ATORVASTATIN 40 MG TABLET PO SCH (21:33)
[2020-09-19] MEDS ORDERED: ENOXAPARIN 100 MG/ML SYRINGE SUBCUT ONE (22:35)
[2020-09-20] MEDS: SODIUM CHLORIDE 0.45% 1,000 ML IV SCH ×3 (00:01→14:40)
[2020-09-20] MEDS: MORPHINE 4 MG/1 ML VIAL IV PRN (04:45)
[2020-09-20 05:47] LABS: Basophils % 0.2 % (0.0-0.8); Eosinophils # 0.2 10*3/uL (0.0-0.87); Hemoglobin 8.7 GM/DL (14.0-18.0); Immature Granulocytes % 0.2 %; Immature Granulocytes Absolute 0.01 #; Lymphocytes # 1.4 10*3/uL (1.4-4.0); Mean Corpuscular HGB Conc 32.2 GM/DL (32-36); Mean Corpuscular Volume 92.2 FL (87-102); Mean Platelet Volume 11.3 FL (9.6-12.0); Monocytes % 12.5 % (1.7-12.7); Neutrophils % 54.1 % (38.7-73.9); Red Blood Count 2.93 MC/CUMM (3.8-5.5); Red Cell Distribution Width 16.1 % (9.3-17.3); White Blood Count 4.8 T/CUMM (4-12)
[2020-09-20 05:54] LABS: Platelet Count 88 T/CUMM (130-400)
[2020-09-20 06:16] LABS: Calcium 8.6 MG/DL (8.5-10.1); Osmolality,Calculated 270.1 MOS/KG (273-304)
[2020-09-20] MEDS: cloNIDine 0.1 MG TABLET PO SCH (10:00)
[2020-09-20] MEDS: MAGNESIUM CHLORIDE 64 MG TABLET PO SCH ×2 (10:00→20:56)
[2020-09-20] MEDS: MULTIVITAMIN (CENTRUM) TABLET PO SCH (10:00)
[2020-09-20] MEDS: ASPIRIN EC 81 MG TABLET PO SCH (10:00)
[2020-09-20] MEDS: PANTOPRAZOLE 40 MG TABLET PO SCH (10:01)
[2020-09-20] MEDS: CHOLECALCIFEROL 1,000 UNIT TABLET PO SCH (10:01)
[2020-09-20] MEDS: FERROUS SULFATE 325 MG TABLET PO SCH ×2 (10:01→16:50)
[2020-09-20] MEDS: ISOSORBIDE MONONITRATE 30 MG TABLET PO SCH (10:01)
[2020-09-20] MEDS: traMADol 50 MG TABLET PO SCH ×4 (10:01→20:58)
[2020-09-20] MEDS: MEGESTROL 40 MG TABLET PO SCH ×2 (10:01→16:50)
[2020-09-20] MEDS: carvediloL 6.25 MG TABLET PO SCH ×2 (10:01→20:58)
[2020-09-20] MEDS: APIXABAN 2.5 MG TABLET PO SCH ×2 (10:01→20:58)
[2020-09-20] MEDS: COLCHICINE 0.6 MG CAPSULE PO SCH ×2 (15:05→20:57)
[2020-09-20] MEDS: NON-FORMULARY MEDICATION (Enzalutamide [Xtandi] 40 mg Capsule) PO SCH (16:57)
[2020-09-20] MEDS ORDERED: BISACODYL 5 MG TABLET PO ONE (18:42)
[2020-09-20] MEDS: methylPREDNISolone 4 MG TABLET PO SCH (20:56)
[2020-09-20] MEDS: ATORVASTATIN 40 MG TABLET PO SCH (20:57)
[2020-09-20] MEDS: LIDOCAINE 5% PATCH TRANSDERM SCH (21:03)
[2020-09-21 06:36] LABS: Eosinophils % 0.4 % (0.00-10.9); Hematocrit 24.9 VOL% (42.0-52.0); Immature Granulocytes % 0.2 %; Immature Granulocytes Absolute 0.01 #; Lymphocytes # 0.5 10*3/uL (1.4-4.0); Lymphocytes % 11.3 % (21.2-54.2); Mean Corpuscular HGB Conc 32.1 GM/DL (32-36); Mean Corpuscular Volume 90.9 FL (87-102); Monocytes % 5.1 % (1.7-12.7); Platelet Count 98 T/CUMM (130-400); Red Blood Count 2.74 MC/CUMM (3.8-5.5); Red Cell Distribution Width 15.8 % (9.3-17.3); White Blood Count 4.7 T/CUMM (4-12)
[2020-09-21 06:57] LABS: Calcium 8.4 MG/DL (8.5-10.1); Osmolality,Calculated 271.1 MOS/KG (273-304)
[2020-09-21 07:04] LABS: Microcytosis 1+
[2020-09-21 07:05] LABS: Anisocytosis 1+; Hypochromasia 2+; Ovalocytes Slight; Platelet Estimate Decreased
[2020-09-21] MEDS: FERROUS SULFATE 325 MG TABLET PO SCH ×2 (09:12→17:11)
[2020-09-21] MEDS: methylPREDNISolone 4 MG TABLET PO SCH ×3 (09:12→21:32)
[2020-09-21] MEDS: MAGNESIUM CHLORIDE 64 MG TABLET PO SCH ×2 (09:12→21:32)
[2020-09-21] MEDS: PANTOPRAZOLE 40 MG TABLET PO SCH (09:12)
[2020-09-21] MEDS: CHOLECALCIFEROL 1,000 UNIT TABLET PO SCH (09:12)
[2020-09-21] MEDS: cloNIDine 0.1 MG TABLET PO SCH (09:12)
[2020-09-21] MEDS: ISOSORBIDE MONONITRATE 30 MG TABLET PO SCH (09:13)
[2020-09-21] MEDS: COLCHICINE 0.6 MG CAPSULE PO SCH ×2 (09:13→21:32)
[2020-09-21] MEDS: traMADol 50 MG TABLET PO SCH ×4 (09:13→21:31)
[2020-09-21] MEDS: BISACODYL 5 MG TABLET PO SCH ×2 (09:13→21:33)
[2020-09-21] MEDS: MULTIVITAMIN (CENTRUM) TABLET PO SCH (09:13)
[2020-09-21] MEDS: carvediloL 3.125 MG TABLET PO SCH ×2 (09:13→17:11)
[2020-09-21] MEDS: MEGESTROL 40 MG TABLET PO SCH ×2 (09:13→17:11)
[2020-09-21] MEDS: APIXABAN 2.5 MG TABLET PO SCH (09:13)
[2020-09-21] MEDS: LIDOCAINE 5% PATCH TRANSDERM SCH (09:22)
[2020-09-21] MEDS: NON-FORMULARY MEDICATION (Enzalutamide [Xtandi] 40 mg Capsule) PO SCH (09:23)
[2020-09-21] MEDS: MAGNESIUM CITRATE 300 ML BOTTLE PO SCH ×2 (11:26→17:45)
[2020-09-21] MEDS ORDERED: MAGNESIUM CITRATE 300 ML BOTTLE PO PRN (17:44)
[2020-09-21] MEDS: ATORVASTATIN 40 MG TABLET PO SCH (21:32)
[2020-09-21] MEDS ORDERED: SODIUM CHLORIDE 0.9% 1,000 ML IV PRN (21:40)
[2020-09-22 06:09] LABS: Basophils % 0.2 % (0.0-0.8); Eosinophils % 0.6 % (0.00-10.9); Hematocrit 26.5 VOL% (42.0-52.0); Hemoglobin 8.7 GM/DL (14.0-18.0); Immature Granulocytes % 0.4 %; Immature Granulocytes Absolute 0.02 #; Lymphocytes # 0.8 10*3/uL (1.4-4.0); Lymphocytes % 16.8 % (21.2-54.2); Mean Corpuscular HGB Conc 32.8 GM/DL (32-36); Mean Corpuscular Volume 89.5 FL (87-102); Mean Platelet Volume 11.4 FL (9.6-12.0); Monocytes % 8.2 % (1.7-12.7); Neutrophils % 73.8 % (38.7-73.9); Platelet Count 107 T/CUMM (130-400); Red Blood Count 2.96 MC/CUMM (3.8-5.5); Red Cell Distribution Width 15.9 % (9.3-17.3); White Blood Count 4.6 T/CUMM (4-12)
[2020-09-22 06:35] LABS: Calcium 8.3 MG/DL (8.5-10.1); Osmolality,Calculated 276.7 MOS/KG (273-304)
[2020-09-22 08:04] LABS: Anisocytosis 2+; Macrocytosis Slight; Ovalocytes Few; Platelet Estimate Adequate; Poikilocytosis Slight
[2020-09-22] MEDS: COLCHICINE 0.6 MG CAPSULE PO SCH ×2 (08:42→21:53)
[2020-09-22] MEDS: MULTIVITAMIN (CENTRUM) TABLET PO SCH (08:43)
[2020-09-22] MEDS: CHOLECALCIFEROL 1,000 UNIT TABLET PO SCH (08:43)
[2020-09-22] MEDS: carvediloL 3.125 MG TABLET PO SCH ×2 (08:43→17:31)
[2020-09-22] MEDS: traMADol 50 MG TABLET PO SCH ×4 (08:43→21:53)
[2020-09-22] MEDS: methylPREDNISolone 4 MG TABLET PO SCH ×3 (08:43→21:53)
[2020-09-22] MEDS: cloNIDine 0.1 MG TABLET PO SCH (08:43)
[2020-09-22] MEDS: PANTOPRAZOLE 40 MG TABLET PO SCH (08:43)
[2020-09-22] MEDS: BISACODYL 5 MG TABLET PO SCH ×2 (08:43→21:53)
[2020-09-22] MEDS: ISOSORBIDE MONONITRATE 30 MG TABLET PO SCH (08:43)
[2020-09-22] MEDS: ASPIRIN CHEW 81 MG TABLET PO SCH ×2 (08:43→17:30)
[2020-09-22] MEDS: MAGNESIUM CHLORIDE 64 MG TABLET PO SCH ×2 (08:43→21:52)
[2020-09-22] MEDS: FERROUS SULFATE 325 MG TABLET PO SCH ×2 (08:43→17:31)
[2020-09-22] MEDS: NON-FORMULARY MEDICATION (Enzalutamide [Xtandi] 40 mg Capsule) PO SCH (08:44)
[2020-09-22] MEDS: MEGESTROL 40 MG TABLET PO SCH ×2 (08:44→17:31)
[2020-09-22] MEDS: LIDOCAINE 5% PATCH TRANSDERM SCH (08:44)
[2020-09-22] MEDS: ATORVASTATIN 40 MG TABLET PO SCH (21:53)
[2020-09-23 05:59] LABS: Basophils % 0.2 % (0.0-0.8); Eosinophils # 0.1 10*3/uL (0.0-0.87); Eosinophils % 2.4 % (0.00-10.9); Hemoglobin 9.1 GM/DL (14.0-18.0); Immature Granulocytes % 0.4 %; Immature Granulocytes Absolute 0.02 #; Lymphocytes % 20.1 % (21.2-54.2); Mean Corpuscular HGB Conc 32.5 GM/DL (32-36); Mean Corpuscular Volume 90.6 FL (87-102); Mean Platelet Volume 10.7 FL (9.6-12.0); Monocytes % 9.7 % (1.7-12.7); Neutrophils % 67.2 % (38.7-73.9); Platelet Count 123 T/CUMM (130-400); Red Blood Count 3.09 MC/CUMM (3.8-5.5); Red Cell Distribution Width 16.5 % (9.3-17.3); White Blood Count 4.9 T/CUMM (4-12)
[2020-09-23 06:25] LABS: Calcium 8.5 MG/DL (8.5-10.1); Osmolality,Calculated 276.5 MOS/KG (273-304)
[2020-09-23 07:02] LABS: Anisocytosis 2+; Burr Cells Few; Macrocytosis 1+; Platelet Estimate Adequate; Poikilocytosis 1+; Target Cells Few
[2020-09-23 07:03] LABS: Giant Platelets Few; Ovalocytes Few; Tear Drop Cells Few
[2020-09-23] MEDS: COLCHICINE 0.6 MG CAPSULE PO SCH (08:55)
[2020-09-23] MEDS: ASPIRIN CHEW 81 MG TABLET PO SCH ×2 (08:55→18:00)
[2020-09-23] MEDS: methylPREDNISolone 4 MG TABLET PO SCH ×3 (08:55→21:21)
[2020-09-23] MEDS: MULTIVITAMIN (CENTRUM) TABLET PO SCH (08:56)
[2020-09-23] MEDS: MEGESTROL 40 MG TABLET PO SCH ×2 (08:56→18:00)
[2020-09-23] MEDS: cloNIDine 0.1 MG TABLET PO SCH (08:56)
[2020-09-23] MEDS: CHOLECALCIFEROL 1,000 UNIT TABLET PO SCH (08:56)
[2020-09-23] MEDS: carvediloL 3.125 MG TABLET PO SCH ×2 (08:56→18:00)
[2020-09-23] MEDS: PANTOPRAZOLE 40 MG TABLET PO SCH (08:56)
[2020-09-23] MEDS: BISACODYL 5 MG TABLET PO SCH (08:57)
[2020-09-23] MEDS: FERROUS SULFATE 325 MG TABLET PO SCH ×2 (08:57→18:00)
[2020-09-23] MEDS: traMADol 50 MG TABLET PO SCH ×4 (08:57→21:21)
[2020-09-23] MEDS: ISOSORBIDE MONONITRATE 30 MG TABLET PO SCH (08:57)
[2020-09-23] MEDS: LIDOCAINE 5% PATCH TRANSDERM SCH (09:00)
[2020-09-23] MEDS: MAGNESIUM CHLORIDE 64 MG TABLET PO SCH ×2 (09:32→21:21)
[2020-09-23] MEDS: NON-FORMULARY MEDICATION (Enzalutamide [Xtandi] 40 mg Capsule) PO SCH (09:32)
[2020-09-23] MEDS: ATORVASTATIN 40 MG TABLET PO SCH (21:20)
[2020-09-24] MEDS: MORPHINE 4 MG/1 ML VIAL IV PRN (05:44)
[2020-09-24 06:41] LABS: Eosinophils # 0.1 10*3/uL (0.0-0.87); Eosinophils % 1.8 % (0.00-10.9); Hemoglobin 9.8 GM/DL (14.0-18.0); Immature Granulocytes % 0.2 %; Immature Granulocytes Absolute 0.01 #; Lymphocytes # 1.2 10*3/uL (1.4-4.0); Lymphocytes % 26.3 % (21.2-54.2); Mean Corpuscular HGB Conc 32.7 GM/DL (32-36); Mean Platelet Volume 10.4 FL (9.6-12.0); Monocytes % 15.3 % (1.7-12.7); Neutrophils % 56.4 % (38.7-73.9); Platelet Count 116 T/CUMM (130-400); Red Blood Count 3.37 MC/CUMM (3.8-5.5); Red Cell Distribution Width 16.2 % (9.3-17.3); White Blood Count 4.4 T/CUMM (4-12)
[2020-09-24 06:56] LABS: Calcium 8.6 MG/DL (8.5-10.1); Osmolality,Calculated 272.7 MOS/KG (273-304)
[2020-09-24 07:11] LABS: Hypochromasia 2+; Microcytosis 1+; Ovalocytes Slight; Polychromasia Slight
[2020-09-24 07:12] LABS: Platelet Estimate Decreased
[2020-09-24] MEDS: LIDOCAINE 5% PATCH TRANSDERM SCH (09:43)
[2020-09-24] MEDS: methylPREDNISolone 4 MG TABLET PO SCH ×2 (09:44→22:12)
[2020-09-24] MEDS: MAGNESIUM CHLORIDE 64 MG TABLET PO SCH ×2 (09:44→22:11)
[2020-09-24] MEDS: CHOLECALCIFEROL 1,000 UNIT TABLET PO SCH (09:44)
[2020-09-24] MEDS: ASPIRIN CHEW 81 MG TABLET PO SCH ×2 (09:44→16:45)
[2020-09-24] MEDS: ISOSORBIDE MONONITRATE 30 MG TABLET PO SCH (09:44)
[2020-09-24] MEDS: FERROUS SULFATE 325 MG TABLET PO SCH ×2 (09:45→16:45)
[2020-09-24] MEDS: MULTIVITAMIN (CENTRUM) TABLET PO SCH (09:45)
[2020-09-24] MEDS: carvediloL 3.125 MG TABLET PO SCH ×2 (09:45→16:45)
[2020-09-24] MEDS: MEGESTROL 40 MG TABLET PO SCH ×2 (09:45→16:45)
[2020-09-24] MEDS: cloNIDine 0.1 MG TABLET PO SCH (09:45)
[2020-09-24] MEDS: PANTOPRAZOLE 40 MG TABLET PO SCH (09:45)
[2020-09-24] MEDS: traMADol 50 MG TABLET PO SCH ×4 (09:45→22:12)
[2020-09-24] MEDS: NON-FORMULARY MEDICATION (Enzalutamide [Xtandi] 40 mg Capsule) PO SCH (10:38)
[2020-09-24] MEDS: ATORVASTATIN 40 MG TABLET PO SCH (22:11)
[2020-09-25] MEDS ORDERED: BISACODYL 5 MG TABLET PO SCH (09:00)
[2020-09-25] MEDS: CHOLECALCIFEROL 1,000 UNIT TABLET PO SCH (09:51)
[2020-09-25] MEDS: ASPIRIN CHEW 81 MG TABLET PO SCH (09:52)
[2020-09-25] MEDS: ISOSORBIDE MONONITRATE 30 MG TABLET PO SCH (09:52)
[2020-09-25] MEDS: FERROUS SULFATE 325 MG TABLET PO SCH (09:52)
[2020-09-25] MEDS: carvediloL 3.125 MG TABLET PO SCH (09:52)
[2020-09-25] MEDS: PANTOPRAZOLE 40 MG TABLET PO SCH (09:52)
[2020-09-25] MEDS: MULTIVITAMIN (CENTRUM) TABLET PO SCH (09:52)
[2020-09-25] MEDS: traMADol 50 MG TABLET PO SCH (09:52)
[2020-09-25] MEDS: cloNIDine 0.1 MG TABLET PO SCH (09:52)
[2020-09-25] MEDS: MAGNESIUM CHLORIDE 64 MG TABLET PO SCH (09:52)
[2020-09-25] MEDS: LIDOCAINE 5% PATCH TRANSDERM SCH (09:53)
[2020-09-25] MEDS: MEGESTROL 40 MG TABLET PO SCH (09:53)
[2020-09-25] MEDS: NON-FORMULARY MEDICATION (Enzalutamide [Xtandi] 40 mg Capsule) PO SCH (09:56)
[2020-09-25 17:16] VITALS: BP 140/70
== END 2020-09-25 14:10 | disposition home health service (06) | DRG 271 ==
LOC: EDBD → EDUNIT# → N.TELEN 17:05 → N.ED 17:05 → N.TELEN 20:24
PROVIDERS: ADMIT Internal Medicine; ATTEND Internal Medicine

== ENCOUNTER 2020-09-30 08:04 | Inpatient (IN) ==
[2020-09-30 08:43] LABS: Basophils % 0.2 % (0.0-0.8); Eosinophils % 0.7 % (0.00-10.9); Hematocrit 36.4 VOL% (42.0-52.0); Hemoglobin 11.2 GM/DL (14.0-18.0); Immature Granulocytes % 0.5 %; Immature Granulocytes Absolute 0.02 #; Lymphocytes # 0.9 10*3/uL (1.4-4.0); Mean Corpuscular HGB Conc 30.8 GM/DL (32-36); Mean Corpuscular Volume 91.9 FL (87-102); Mean Platelet Volume 10.4 FL (9.6-12.0); Neutrophils % 67.6 % (38.7-73.9); Platelet Count 108 T/CUMM (130-400); Red Blood Count 3.96 MC/CUMM (3.8-5.5); Red Cell Distribution Width 16.4 % (9.3-17.3); White Blood Count 4.1 T/CUMM (4-12)
[2020-09-30 09:03] LABS: Albumin 3.1 G/DL (3.4-5.0); Bilirubin,Total 0.7 MG/DL (0.2-1.0); Calcium 8.9 MG/DL (8.5-10.1); Osmolality,Calculated 277.7 MOS/KG (273-304); Potassium 3.3 MMOL/L (3.5-5.1); Total Protein 7.8 G/DL (6.4-8.3)
[2020-09-30] MEDS ORDERED: ASPIRIN 325 MG TABLET PO STA ×2 (09:06→09:07)
[2020-09-30] MEDS ORDERED: ENOXAPARIN 40 MG/0.4 ML SYRINGE SUBCUT STA (09:18)
[2020-09-30] MEDS: NITROGLYCERIN SL 0.4 MG TABLET SL PRN ×3 (09:20→09:30)
[2020-09-30] MEDS ORDERED: ONDANSETRON 4 MG/2 ML VIAL ONE (09:22)
[2020-09-30] MEDS ORDERED: ONDANSETRON 4 MG/2 ML VIAL IV STA (09:22)
[2020-09-30] MEDS ORDERED: MAGNESIUM SULF RIDER 4 GM in PREMIX 1 EACH IV PRN (09:30)
[2020-09-30] MEDS ORDERED: MORPHINE 4 MG/1 ML VIAL IV PRN (09:30)
[2020-09-30] MEDS ORDERED: MAGNESIUM SULF RIDER 2 GM in PREMIX 1 EACH IV PRN (09:30)
[2020-09-30] MEDS ORDERED: ZALEPLON 5 MG CAPSULE PO PRN (09:36)
[2020-09-30] MEDS ORDERED: MAGNESIUM CITRATE 300 ML BOTTLE PO PRN (09:36)
[2020-09-30] MEDS ORDERED: ALUMINUM/MAGNES/SIMETH MAX STR 30 ML UDCUP PO PRN (09:36)
[2020-09-30] MEDS ORDERED: BISACODYL 5 MG TABLET PO PRN (09:36)
[2020-09-30] MEDS: ENOXAPARIN 30 MG/0.3 ML SYRINGE SUBCUT SCH (10:00)
[2020-09-30] MEDS: SODIUM CHLORIDE 0.45% 1,000 ML IV SCH (10:00)
[2020-09-30] MEDS ORDERED: hydrALAZINE 20 MG/1 ML VIAL IV STA (11:13)
[2020-09-30] MEDS ORDERED: hydrALAZINE 25 MG TABLET PO PRN (15:16)
[2020-09-30] MEDS: FERROUS SULFATE 325 MG TABLET PO SCH (16:44)
[2020-09-30] MEDS: POTASSIUM CHLORIDE 20 MEQ TABLET PO SCH (16:44)
[2020-09-30] MEDS: MAGNESIUM CHLORIDE 64 MG TABLET PO SCH (21:03)
[2020-09-30] MEDS: ATORVASTATIN 40 MG TABLET PO SCH (21:03)
[2020-09-30] MEDS: carvediloL 3.125 MG TABLET PO SCH (21:03)
[2020-10-01] MEDS: SODIUM CHLORIDE 0.45% 1,000 ML IV SCH ×2 (06:00→21:04)
[2020-10-01 06:44] LABS: Risk Ratio 1.79
[2020-10-01] MEDS ORDERED: ENZALUTAMIDE 40 MG PO SCH (09:00)
[2020-10-01] MEDS: FLUTICASONE 50 MCG NASAL SPRAY 16 GM BOTTLE BOTH NARES SCH (09:21)
[2020-10-01] MEDS: methylPREDNISolone SOD SUC 40 MG/1 ML VIAL IV SCH ×2 (10:37→18:04)
[2020-10-01] MEDS: ENOXAPARIN 30 MG/0.3 ML SYRINGE SUBCUT SCH (10:37)
[2020-10-01] MEDS: ONDANSETRON 4 MG/2 ML VIAL IV PRN (10:40)
[2020-10-01] MEDS: cloNIDine 0.1 MG TABLET PO SCH (11:55)
[2020-10-01] MEDS: FERROUS SULFATE 325 MG TABLET PO SCH ×2 (11:55→17:00)
[2020-10-01] MEDS: MAGNESIUM CHLORIDE 64 MG TABLET PO SCH ×2 (11:55→21:03)
[2020-10-01] MEDS: ISOSORBIDE MONONITRATE 30 MG TABLET PO SCH (11:55)
[2020-10-01] MEDS: POTASSIUM CHLORIDE 20 MEQ TABLET PO SCH ×2 (11:55→17:00)
[2020-10-01] MEDS: carvediloL 3.125 MG TABLET PO SCH ×2 (11:55→21:03)
[2020-10-01] MEDS: POLYETHYLENE GLYCOL POWDER 17 GM PACK PO SCH (11:55)
[2020-10-01] MEDS: PANTOPRAZOLE 40 MG TABLET PO SCH (11:55)
[2020-10-01] MEDS: MULTIVITAMIN (CENTRUM) TABLET PO SCH (11:55)
[2020-10-01] MEDS: CHOLECALCIFEROL 1,000 UNIT TABLET PO SCH (11:55)
[2020-10-01] MEDS: TAMSULOSIN 0.4 MG CAPSULE PO SCH (11:55)
[2020-10-01] MEDS: ASPIRIN CHEW 81 MG TABLET PO SCH (17:00)
[2020-10-01] MEDS: BISACODYL 5 MG TABLET PO SCH (21:03)
[2020-10-01] MEDS: guaiFENesin 200 MG/10 ML UDCUP PO PRN (21:03)
[2020-10-01] MEDS: ATORVASTATIN 40 MG TABLET PO SCH (21:04)
[2020-10-01] MEDS: SIMETHICONE CHEW 80 MG TABLET PO SCH (22:10)
[2020-10-02] MEDS: methylPREDNISolone SOD SUC 40 MG/1 ML VIAL IV SCH ×3 (03:05→17:30)
[2020-10-02 05:38] LABS: Osmolality,Calculated 273.1 MOS/KG (273-304); Potassium 4.4 MMOL/L (3.5-5.1)
[2020-10-02] MEDS: ONDANSETRON 4 MG/2 ML VIAL IV PRN (07:30)
[2020-10-02] MEDS ORDERED: SODIUM CHLORIDE 0.9% 1,000 ML IV PRN (08:18)
[2020-10-02] MEDS ORDERED: BISACODYL 5 MG TABLET PO SCH (09:00)
[2020-10-02] MEDS: ENOXAPARIN 30 MG/0.3 ML SYRINGE SUBCUT SCH (10:27)
[2020-10-02] MEDS ORDERED: PROMETHAZINE 25 MG/1 ML VIAL IM PRN (10:31)
[2020-10-02] MEDS: BISACODYL 5 MG TABLET PO SCH (10:58)
[2020-10-02] MEDS: PANTOPRAZOLE 40 MG TABLET PO SCH (10:58)
[2020-10-02] MEDS: SIMETHICONE CHEW 80 MG TABLET PO SCH ×3 (10:58→20:20)
[2020-10-02] MEDS: cloNIDine 0.1 MG TABLET PO SCH (11:51)
[2020-10-02] MEDS: ASPIRIN CHEW 81 MG TABLET PO SCH ×2 (11:51→17:30)
[2020-10-02] MEDS: TAMSULOSIN 0.4 MG CAPSULE PO SCH (11:51)
[2020-10-02] MEDS: carvediloL 3.125 MG TABLET PO SCH ×2 (11:51→20:23)
[2020-10-02] MEDS: ISOSORBIDE MONONITRATE 30 MG TABLET PO SCH (11:51)
[2020-10-02] MEDS: POTASSIUM CHLORIDE 20 MEQ TABLET PO SCH ×2 (11:51→17:30)
[2020-10-02] MEDS: POLYETHYLENE GLYCOL POWDER 17 GM PACK PO SCH (11:51)
[2020-10-02] MEDS: FERROUS SULFATE 325 MG TABLET PO SCH ×2 (11:52→17:30)
[2020-10-02] MEDS: MULTIVITAMIN (CENTRUM) TABLET PO SCH (11:52)
[2020-10-02] MEDS: MAGNESIUM CHLORIDE 64 MG TABLET PO SCH ×2 (11:53→20:23)
[2020-10-02] MEDS: FLUTICASONE 50 MCG NASAL SPRAY 16 GM BOTTLE BOTH NARES SCH (11:53)
[2020-10-02] MEDS: CHOLECALCIFEROL 1,000 UNIT TABLET PO SCH (11:53)
[2020-10-02] MEDS: SODIUM CHLORIDE 0.45% 1,000 ML IV SCH ×2 (11:54→17:38)
[2020-10-02] MEDS: guaiFENesin 200 MG/10 ML UDCUP PO PRN (20:23)
[2020-10-02] MEDS: ATORVASTATIN 40 MG TABLET PO SCH (20:23)
[2020-10-03] MEDS: methylPREDNISolone SOD SUC 40 MG/1 ML VIAL IV SCH ×3 (02:30→18:34)
[2020-10-03 06:09] LABS: Hematocrit 32.6 VOL% (42.0-52.0); Hemoglobin 10.1 GM/DL (14.0-18.0); Immature Granulocytes % 0.3 %; Immature Granulocytes Absolute 0.02 #; Lymphocytes # 0.8 10*3/uL (1.4-4.0); Lymphocytes % 13.3 % (21.2-54.2); Mean Corpuscular Volume 90.8 FL (87-102); Mean Platelet Volume 12.2 FL (9.6-12.0); Monocytes % 6.5 % (1.7-12.7); Neutrophils % 79.9 % (38.7-73.9); Platelet Count 111 T/CUMM (130-400); Red Blood Count 3.59 MC/CUMM (3.8-5.5); Red Cell Distribution Width 15.8 % (9.3-17.3); White Blood Count 6.3 T/CUMM (4-12)
[2020-10-03 06:26] LABS: Osmolality,Calculated 265.7 MOS/KG (273-304); Potassium 4.9 MMOL/L (3.5-5.1)
[2020-10-03] MEDS: CHOLECALCIFEROL 1,000 UNIT TABLET PO SCH (08:30)
[2020-10-03] MEDS: ENOXAPARIN 30 MG/0.3 ML SYRINGE SUBCUT SCH (08:30)
[2020-10-03] MEDS: carvediloL 3.125 MG TABLET PO SCH ×2 (08:31→20:58)
[2020-10-03] MEDS: TAMSULOSIN 0.4 MG CAPSULE PO SCH (08:31)
[2020-10-03] MEDS: FLUTICASONE 50 MCG NASAL SPRAY 16 GM BOTTLE BOTH NARES SCH (08:31)
[2020-10-03] MEDS: cloNIDine 0.1 MG TABLET PO SCH (08:31)
[2020-10-03] MEDS: MAGNESIUM CHLORIDE 64 MG TABLET PO SCH ×2 (08:31→20:58)
[2020-10-03] MEDS: ASPIRIN CHEW 81 MG TABLET PO SCH ×2 (08:31→16:20)
[2020-10-03] MEDS: SIMETHICONE CHEW 80 MG TABLET PO SCH ×3 (08:31→20:58)
[2020-10-03] MEDS: PANTOPRAZOLE 40 MG TABLET PO SCH (08:31)
[2020-10-03] MEDS: ISOSORBIDE MONONITRATE 30 MG TABLET PO SCH (08:31)
[2020-10-03] MEDS: MULTIVITAMIN (CENTRUM) TABLET PO SCH (08:31)
[2020-10-03] MEDS: FERROUS SULFATE 325 MG TABLET PO SCH ×2 (08:31→16:20)
[2020-10-03] MEDS: POTASSIUM CHLORIDE 20 MEQ TABLET PO SCH ×2 (08:31→16:20)
[2020-10-03] MEDS: SODIUM CHLORIDE 0.45% 1,000 ML IV SCH ×2 (08:33→20:58)
[2020-10-03] MEDS: ATORVASTATIN 40 MG TABLET PO SCH (20:58)
[2020-10-04 05:54] LABS: Calcium 8.4 MG/DL (8.5-10.1); Osmolality,Calculated 266.5 MOS/KG (273-304); Potassium 4.8 MMOL/L (3.5-5.1)
[2020-10-04] MEDS: methylPREDNISolone SOD SUC 40 MG/1 ML VIAL IV SCH ×2 (05:55→18:09)
[2020-10-04] MEDS: POTASSIUM CHLORIDE 20 MEQ TABLET PO SCH ×2 (08:30→16:31)
[2020-10-04] MEDS: ENOXAPARIN 30 MG/0.3 ML SYRINGE SUBCUT SCH (08:30)
[2020-10-04] MEDS: FERROUS SULFATE 325 MG TABLET PO SCH ×2 (08:30→16:31)
[2020-10-04] MEDS: cloNIDine 0.1 MG TABLET PO SCH (08:30)
[2020-10-04] MEDS: MAGNESIUM CHLORIDE 64 MG TABLET PO SCH ×2 (08:31→20:23)
[2020-10-04] MEDS: BISACODYL 5 MG TABLET PO SCH (08:31)
[2020-10-04] MEDS: FLUTICASONE 50 MCG NASAL SPRAY 16 GM BOTTLE BOTH NARES SCH (08:31)
[2020-10-04] MEDS: ISOSORBIDE MONONITRATE 30 MG TABLET PO SCH (08:31)
[2020-10-04] MEDS: carvediloL 3.125 MG TABLET PO SCH ×2 (08:31→20:23)
[2020-10-04] MEDS: SIMETHICONE CHEW 80 MG TABLET PO SCH ×3 (08:31→20:23)
[2020-10-04] MEDS: TAMSULOSIN 0.4 MG CAPSULE PO SCH (08:31)
[2020-10-04] MEDS: ASPIRIN CHEW 81 MG TABLET PO SCH ×2 (08:31→16:31)
[2020-10-04] MEDS: PANTOPRAZOLE 40 MG TABLET PO SCH (08:31)
[2020-10-04] MEDS: CHOLECALCIFEROL 1,000 UNIT TABLET PO SCH (08:31)
[2020-10-04] MEDS: MULTIVITAMIN (CENTRUM) TABLET PO SCH (08:31)
[2020-10-04] MEDS: ONDANSETRON 4 MG/2 ML VIAL IV PRN (18:13)
[2020-10-04] MEDS: ATORVASTATIN 40 MG TABLET PO SCH (20:23)
[2020-10-05] MEDS: methylPREDNISolone SOD SUC 40 MG/1 ML VIAL IV SCH ×2 (06:58→18:40)
[2020-10-05] MEDS: cloNIDine 0.1 MG TABLET PO SCH (09:42)
[2020-10-05] MEDS: ISOSORBIDE MONONITRATE 30 MG TABLET PO SCH (09:42)
[2020-10-05] MEDS: POTASSIUM CHLORIDE 20 MEQ TABLET PO SCH ×2 (09:42→18:40)
[2020-10-05] MEDS: PANTOPRAZOLE 40 MG TABLET PO SCH (09:42)
[2020-10-05] MEDS: ENOXAPARIN 30 MG/0.3 ML SYRINGE SUBCUT SCH (09:42)
[2020-10-05] MEDS: ASPIRIN CHEW 81 MG TABLET PO SCH ×2 (09:42→18:40)
[2020-10-05] MEDS: SIMETHICONE CHEW 80 MG TABLET PO SCH ×3 (09:42→20:30)
[2020-10-05] MEDS: FLUTICASONE 50 MCG NASAL SPRAY 16 GM BOTTLE BOTH NARES SCH (09:42)
[2020-10-05] MEDS: CHOLECALCIFEROL 1,000 UNIT TABLET PO SCH (09:42)
[2020-10-05] MEDS: FERROUS SULFATE 325 MG TABLET PO SCH ×2 (09:42→18:40)
[2020-10-05] MEDS: carvediloL 3.125 MG TABLET PO SCH ×2 (09:42→20:31)
[2020-10-05] MEDS: TAMSULOSIN 0.4 MG CAPSULE PO SCH (09:42)
[2020-10-05] MEDS: MULTIVITAMIN (CENTRUM) TABLET PO SCH (09:42)
[2020-10-05] MEDS: MAGNESIUM CHLORIDE 64 MG TABLET PO SCH ×2 (09:42→20:31)
[2020-10-05] MEDS ORDERED: POLYETHYLENE GLYCOL POWDER 17 GM PACK PO PRN (14:04)
[2020-10-05] MEDS: ATORVASTATIN 40 MG TABLET PO SCH (20:31)
[2020-10-05] MEDS ORDERED: ACETAMINOPHEN 325 MG TABLET PO PRN (23:50)
[2020-10-06] MEDS: methylPREDNISolone SOD SUC 40 MG/1 ML VIAL IV SCH ×2 (05:55→17:16)
[2020-10-06 06:30] LABS: Basophils % 0.1 % (0.0-0.8); Eosinophils % 0.1 % (0.00-10.9); Hematocrit 33.9 VOL% (42.0-52.0); Hemoglobin 10.5 GM/DL (14.0-18.0); Immature Granulocytes % 0.6 %; Immature Granulocytes Absolute 0.04 #; Lymphocytes # 1.2 10*3/uL (1.4-4.0); Lymphocytes % 17.1 % (21.2-54.2); Mean Corpuscular Volume 92.9 FL (87-102); Mean Platelet Volume 11.3 FL (9.6-12.0); Monocytes % 9.3 % (1.7-12.7); Neutrophils % 72.8 % (38.7-73.9); Platelet Count 108 T/CUMM (130-400); Red Blood Count 3.65 MC/CUMM (3.8-5.5); Red Cell Distribution Width 16.3 % (9.3-17.3); White Blood Count 6.9 T/CUMM (4-12)
[2020-10-06 08:04] LABS: Calcium 9.1 MG/DL (8.5-10.1); Osmolality,Calculated 264.8 MOS/KG (273-304); Potassium 5.4 MMOL/L (3.5-5.1)
[2020-10-06] MEDS: POTASSIUM CHLORIDE 20 MEQ TABLET PO SCH ×2 (08:20→16:20)
[2020-10-06] MEDS: ASPIRIN CHEW 81 MG TABLET PO SCH ×2 (08:42→16:20)
[2020-10-06] MEDS: SODIUM CHLORIDE 0.9% 1,000 ML IV SCH ×2 (08:42→16:20)
[2020-10-06] MEDS: cloNIDine 0.1 MG TABLET PO SCH (08:43)
[2020-10-06] MEDS: TAMSULOSIN 0.4 MG CAPSULE PO SCH (08:43)
[2020-10-06] MEDS: SIMETHICONE CHEW 80 MG TABLET PO SCH ×3 (08:43→20:30)
[2020-10-06] MEDS: MAGNESIUM CHLORIDE 64 MG TABLET PO SCH ×2 (08:43→20:30)
[2020-10-06] MEDS: FERROUS SULFATE 325 MG TABLET PO SCH ×2 (08:43→16:20)
[2020-10-06] MEDS: ISOSORBIDE MONONITRATE 30 MG TABLET PO SCH (08:43)
[2020-10-06] MEDS: carvediloL 3.125 MG TABLET PO SCH ×2 (08:43→20:30)
[2020-10-06] MEDS: FLUTICASONE 50 MCG NASAL SPRAY 16 GM BOTTLE BOTH NARES SCH (08:43)
[2020-10-06] MEDS: BISACODYL 5 MG TABLET PO SCH (08:43)
[2020-10-06] MEDS: ENOXAPARIN 30 MG/0.3 ML SYRINGE SUBCUT SCH (08:43)
[2020-10-06] MEDS: MULTIVITAMIN (CENTRUM) TABLET PO SCH (08:43)
[2020-10-06] MEDS: CHOLECALCIFEROL 1,000 UNIT TABLET PO SCH (08:43)
[2020-10-06] MEDS: PANTOPRAZOLE 40 MG TABLET PO SCH (08:43)
[2020-10-06] MEDS: ATORVASTATIN 40 MG TABLET PO SCH (20:30)
[2020-10-07] MEDS: SODIUM CHLORIDE 0.9% 1,000 ML IV SCH ×3 (00:13→21:26)
[2020-10-07] MEDS: methylPREDNISolone SOD SUC 40 MG/1 ML VIAL IV SCH ×2 (05:18→18:10)
[2020-10-07] MEDS: ASPIRIN CHEW 81 MG TABLET PO SCH ×2 (08:28→16:01)
[2020-10-07] MEDS: POTASSIUM CHLORIDE 20 MEQ TABLET PO SCH (08:28)
[2020-10-07] MEDS: carvediloL 3.125 MG TABLET PO SCH ×2 (08:28→20:36)
[2020-10-07] MEDS: SIMETHICONE CHEW 80 MG TABLET PO SCH ×3 (08:28→20:36)
[2020-10-07] MEDS: MULTIVITAMIN (CENTRUM) TABLET PO SCH (08:28)
[2020-10-07] MEDS: FERROUS SULFATE 325 MG TABLET PO SCH ×2 (08:28→16:01)
[2020-10-07] MEDS: cloNIDine 0.1 MG TABLET PO SCH (08:28)
[2020-10-07] MEDS: PANTOPRAZOLE 40 MG TABLET PO SCH (08:28)
[2020-10-07] MEDS: FLUTICASONE 50 MCG NASAL SPRAY 16 GM BOTTLE BOTH NARES SCH (08:28)
[2020-10-07] MEDS: TAMSULOSIN 0.4 MG CAPSULE PO SCH (08:28)
[2020-10-07] MEDS: ISOSORBIDE MONONITRATE 30 MG TABLET PO SCH (08:28)
[2020-10-07] MEDS: CHOLECALCIFEROL 1,000 UNIT TABLET PO SCH (08:29)
[2020-10-07] MEDS: MAGNESIUM CHLORIDE 64 MG TABLET PO SCH ×2 (08:29→20:36)
[2020-10-07] MEDS: ENOXAPARIN 30 MG/0.3 ML SYRINGE SUBCUT SCH (08:29)
[2020-10-07] MEDS: ATORVASTATIN 40 MG TABLET PO SCH (20:36)
[2020-10-08] MEDS: methylPREDNISolone SOD SUC 40 MG/1 ML VIAL IV SCH ×2 (05:30→17:48)
[2020-10-08] MEDS: SIMETHICONE CHEW 80 MG TABLET PO SCH ×2 (09:00→15:47)
[2020-10-08] MEDS: ASPIRIN CHEW 81 MG TABLET PO SCH ×2 (09:00→17:47)
[2020-10-08] MEDS: MAGNESIUM CHLORIDE 64 MG TABLET PO SCH (09:00)
[2020-10-08] MEDS: cloNIDine 0.1 MG TABLET PO SCH (09:00)
[2020-10-08] MEDS: MULTIVITAMIN (CENTRUM) TABLET PO SCH (09:00)
[2020-10-08] MEDS: FERROUS SULFATE 325 MG TABLET PO SCH ×2 (09:00→17:48)
[2020-10-08] MEDS: carvediloL 3.125 MG TABLET PO SCH (09:00)
[2020-10-08] MEDS: PANTOPRAZOLE 40 MG TABLET PO SCH (09:00)
[2020-10-08] MEDS: FLUTICASONE 50 MCG NASAL SPRAY 16 GM BOTTLE BOTH NARES SCH (09:00)
[2020-10-08] MEDS: CHOLECALCIFEROL 1,000 UNIT TABLET PO SCH (09:00)
[2020-10-08] MEDS: BISACODYL 5 MG TABLET PO SCH (09:00)
[2020-10-08] MEDS: TAMSULOSIN 0.4 MG CAPSULE PO SCH (09:00)
[2020-10-08] MEDS: ISOSORBIDE MONONITRATE 30 MG TABLET PO SCH (09:00)
[2020-10-08] MEDS: ENOXAPARIN 30 MG/0.3 ML SYRINGE SUBCUT SCH (09:04)
[2020-10-08 16:34] VITALS: BP 127/64
== END 2020-10-08 17:40 | disposition home health service (06) | DRG 177 ==
LOC: EDBD → EDUNIT# → N.ED 08:04 → N.EDINP 09:30 → N.2E 11:58
PROVIDERS: ADMIT Internal Medicine; ATTEND Internal Medicine